=== PATIENT | female | born 1990 | race Hispanic/Latino ===

== ENCOUNTER 2019-03-09 09:46 | Emergency (ER) | payer BC, OTHER, SELFPAY ==
[2019-03-09] MEDS ORDERED: Acetaminophen 500 MG TAB ONE (11:04)
--- NOTE | 2019-03-09 11:06 | RAD ---
EXAM: Right tibia-fibula: 2 views INDICATIONS: Trauma COMPARISON: None. FINDINGS: No evidence of fracture. No osseous abnormality. IMPRESSION: No acute finding
--- NOTE | 2019-03-09 11:07 | RAD ---
EXAM: Chest PA and lateral: HISTORY: Trauma COMPARISON: none FINDINGS: Lung riley are clear. Vascular markings are normal. Heart and mediastinum appear unremarkable. Osseous structures are unremarkable. IMPRESSION: Unremarkable chest
[2019-03-09 11:35] LABS: BHCG - Serum Negative (NEGATIVE); Pregs Control Background? CLEAR/WHITE (CLR/WHITE); Pregs Control Bar Appear? YES (CONTROL BAR)
[2019-03-09 11:52] LABS: ALT (SGPT) 14 U/L (8-55); AST (SGOT) 21 U/L (5-34); Albumin 4.2 g/dL (3.5-5.0); Alkaline Phosphatase 66 U/L (40-110); Anion Gap 14 mmol/L (10-20); BUN (Urea Nitrogen) 8 mg/dL (7.0-18.7); Bilirubin, Total 0.5 mg/dL (0.2-1.2); Calc. Creatinine Clearance 0 mL/min (70-130); Calcium 9.2 mg/dL (7.8-10.44); Carbon Dioxide 19 mmol/L (22-29); Chloride 109 mmol/L (98-107); Estimated GFR-MDRD 79; Globulin 3.4 g/dL (2.4-3.5); Glucose 98 mg/dL (70-105); Potassium 3.9 mmol/L (3.5-5.1); Protein, Total 7.6 g/dL (6.0-8.3); Sodium 138 mmol/L (136-145)
[2019-03-09 12:41] LABS: Band 15 % (5-11); Burr Cells SLIGHT = 2-5 cells (100X) (0-1/hpf); Eosinophils 1 % (0-10); Hemoglobin 10.6 g/dL (12.0-16.0); Hypochromia MODERATE=16-30 cells (100X) (0-5/hpf); Lymphocytes 15 % (21-51); MDiff Complete? YES; Mean Corpuscular HGB CONC 28.9 g/dL (32.0-36.0); Mean Corpuscular Hemoglobin 19.4 pg (27.0-31.0); Mean Corpuscular Volume 67.2 fL (78.0-98.0); Mean Platelet Volume 10.6 fL (7.4-10.4); Microcytosis MODERATE=15-30 cells (100X) (0-5/hpf); Monocytes 6 % (0-10); Neutrophil 63 % (42-75); Ovalocytes SLIGHT = 2-5 cells (100X) (0-1/hpf); Platelet Count 564 thou/uL (130-400); Platelet Morphology Comment Appears Increased; Polychromasia MODERATE = 3-4 cells (100X) (0-2/hpf); Red Blood Cell (RBC) Count 5.46 mill/uL (4.20-5.40); Reflex for Review?? YES; Schistocytes SLIGHT = 2-5 cells (100X) (0-1/hpf); White Blood Cell (WBC) Count 30.1 thou/uL (4.8-10.8)
[2019-03-09 12:57] LABS: Bacteria/HPF 2+ HPF (None Seen); Bilirubin Negative (Negative); Blood, Urine 1+ (Negative); Clarity Turbid (Clear); Glucose, Urine (Dipstick) Normal (Negative); Leukocyte 500 Leu/uL (Negative); Mucous/LPF 1+ LPF (<2+); Nitrite Negative (Negative); Protein, Urine (Dipstick) 30 mg/dL (Neg-Trace); RBC/HPF 0-3 HPF (0-3); Urobilinogen Normal mg/dL (Less than 2)
== END 2019-03-09 13:30 | disposition home or self-care (01) ==
LOC: ERS 09:46
DX: S20.311A Abrasion of right front wall of thorax, initial encounter (principal); S50.812A Abrasion of left forearm, initial encounter; S50.811A Abrasion of right forearm, initial encounter; N39.0 Urinary tract infection, site not specified; M32.9 Systemic lupus erythematosus, unspecified; I25.2 Old myocardial infarction; Z79.01 Long term (current) use of anticoagulants; Z79.899 Other long term (current) drug therapy; V59.9XXA Occupant (driver) (passenger) of pick-up truck or van injured in unspecified traffic accident, initial encounter
CPT/HCPCS: 36415; 71046; 80053; 81003; 81015; 84484; 84703; 85025; 85060

== ENCOUNTER 2019-05-26 08:51 | Emergency (ER) | payer BC ==
--- NOTE | 2019-05-30 09:48 | EKG ---
Test Reason : DIZZINESS Blood Pressure : / mmHG Vent. Rate : 071 BPM Atrial Rate : 071 BPM P-R Int : 128 ms QRS Dur : 088 ms QT Int : 388 ms P-R-T Axes : 006 -02 008 degrees QTc Int : 421 ms Normal sinus rhythm Normal ECG Confirmed by KOBY CASON DO ([id number]), editorial writer DREW BARLOW ([id number]) on 05/30/2019 9:48:32 AM Referred By: SUNDAY HOLDEN Confirmed By:KOBY CASON DO
== END 2019-05-26 14:30 | disposition home or self-care (01) ==
LOC: ERS 08:51
DX: R42 Dizziness and giddiness (principal); T37.8X5A Adverse effect of other specified systemic anti-infectives and antiparasitics, initial encounter; I25.10 Atherosclerotic heart disease of native coronary artery without angina pectoris; I25.2 Old myocardial infarction; F41.9 Anxiety disorder, unspecified; F32.9 Major depressive disorder, single episode, unspecified; Z86.711 Personal history of pulmonary embolism; Z86.718 Personal history of other venous thrombosis and embolism; Z79.01 Long term (current) use of anticoagulants; Z79.899 Other long term (current) drug therapy
CPT/HCPCS: 93005; 96360

== ENCOUNTER 2019-08-24 12:57 | Emergency (ER) | payer BC ==
[2019-08-24 14:44] LABS: PTT 66.4 sec (22.9-36.1); Prothrombin Time 59.5 sec (12.0-14.7)
[2019-08-24] MEDS ORDERED: Phytonadione 10 MG/ML AMP PO SCH (15:45)
== END 2019-08-24 16:27 | disposition home or self-care (01) ==
LOC: ERS 12:57
DX: R79.1 Abnormal coagulation profile (principal); I25.10 Atherosclerotic heart disease of native coronary artery without angina pectoris; I25.2 Old myocardial infarction; F41.9 Anxiety disorder, unspecified; F32.9 Major depressive disorder, single episode, unspecified; Z86.718 Personal history of other venous thrombosis and embolism; Z86.711 Personal history of pulmonary embolism; Z79.82 Long term (current) use of aspirin; Z79.899 Other long term (current) drug therapy
CPT/HCPCS: 36415; 85610; 85730; 99283; J3430

== ENCOUNTER 2019-09-03 14:58 | Emergency (ER) | payer BC, MEDICAID, OTHER ==
[2019-09-04 11:46] LABS: SARS-CoV-2 MS2 Positive; SARS-CoV-2 N Gene Negative; SARS-CoV-2 S Gene Negative; SARS-CoV-2 by NAA Not Detected (NotDetected); SARS-CoV-2 orf1ab Negative
== END 2019-09-03 15:10 | disposition home or self-care (01) ==
LOC: ERS 14:58
DX: R05 Cough (principal); R09.81 Nasal congestion; Z20.828 Contact with and (suspected) exposure to other viral communicable diseases; I25.2 Old myocardial infarction; F41.9 Anxiety disorder, unspecified; Z79.899 Other long term (current) drug therapy
CPT/HCPCS: 87635; 99283; U0003

== ENCOUNTER 2020-01-06 16:44 | Emergency (ER) | payer OTHER, MEDICAID ==
[2020-01-06 17:44] LABS: #Basophils 0.1 thou/uL (0.0-0.2); #Eosinphils 0.7 thou/uL (0.0-0.7); #Lymphocytes 3.7 thou/uL (1.20-3.40); #Monocytes 1.3 thou/uL (0.11-0.59); #Neutrophils 6.7 thou/uL (1.40-6.50); %Basophils 1.1 % (0.0-1.0); %Eosinophils 5.3 % (0.0-10.0); %Lymphocytes 29.8 % (21.0-51.0); %Monocytes 10.1 % (0.0-10.0); %Neutrophils 53.7 % (42.0-75.0); Hemoglobin 11.1 g/dL (12.0-16.0); Mean Corpuscular HGB CONC 30.1 g/dL (32.0-36.0); Mean Corpuscular Hemoglobin 21.8 pg (27.0-31.0); Mean Corpuscular Volume 72.5 fL (78.0-98.0); Mean Platelet Volume 9.9 fL (7.4-10.4); Platelet Count 450 thou/uL (130-400); RBC Distribution Width 18.6 % (11.5-14.5); Red Blood Cell (RBC) Count 5.07 mill/uL (4.20-5.40); White Blood Cell (WBC) Count 12.4 thou/uL (4.8-10.8)
[2020-01-06 17:54] LABS: PTT 45.1 sec (22.9-36.1); Prothrombin Time 31.9 sec (12.0-14.7)
[2020-01-06 18:05] LABS: ALT (SGPT) 10 U/L (8-55); AST (SGOT) 17 U/L (5-34); Albumin 3.7 g/dL (3.5-5.0); Alkaline Phosphatase 61 U/L (40-110); Anion Gap 12 mmol/L (10-20); BUN (Urea Nitrogen) 9 mg/dL (7.0-18.7); Bilirubin, Total 0.2 mg/dL (0.2-1.2); Calc. Creatinine Clearance 0 mL/min (70-130); Calcium 8.7 mg/dL (7.8-10.44); Carbon Dioxide 23 mmol/L (22-29); Chloride 106 mmol/L (98-107); Estimated GFR-MDRD 83; Globulin 3.2 g/dL (2.4-3.5); Glucose 123 mg/dL (70-105); Protein, Total 6.9 g/dL (6.0-8.3); Sodium 137 mmol/L (136-145)
[2020-01-06 18:07] LABS: Anisocytosis SLIGHT = 6-15 cells (100X) (0-5/hpf); Helmet Cells SLIGHT = 2-5 cells (100X) (0-1/hpf); Hypochromia SLIGHT = 6-15 cells (100X) (0-5/hpf); MDiff Complete? YES; Microcytosis SLIGHT = 6-15 cells (100X) (0-5/hpf); Ovalocytes SLIGHT = 2-5 cells (100X) (0-1/hpf); Platelet Morphology Comment Appears Increased; Schistocytes SLIGHT = 2-5 cells (100X) (0-1/hpf); Target Cells SLIGHT = 2-5 cells (100X) (0-1/hpf); Tear Drops SLIGHT = 2-5 cells (100X) (0-1/hpf)
--- NOTE | 2020-01-06 18:31 | ULT ---
Bilateral lower extremity venous Doppler ultrasound: 01/06/2020 COMPARISON: None available HISTORY: Pain, swelling, edema, assess for DVT TECHNIQUE: Multiplanar grayscale sonographic imaging of the venous structures of bilateral lower extr emities obtained with color flow and spectral analysis FINDINGS: Bilateral common femoral veins, greater saphenous veins, profunda femoral veins, femoral ve ins, popliteal veins, and posterior tibial veins are patent. There is normal blood flow, augmentation, and compression within the deep venous system bilaterally. No evidence for DVT on eithe r side IMPRESSION: No evidence for deep venous thrombosis of either lower extremity.
== END 2020-01-06 20:32 | disposition home or self-care (01) ==
LOC: ERS 16:44
DX: R60.9 Edema, unspecified (principal); I25.2 Old myocardial infarction; Z86.718 Personal history of other venous thrombosis and embolism; F41.9 Anxiety disorder, unspecified; F32.9 Major depressive disorder, single episode, unspecified
CPT/HCPCS: 36415; 80053; 83880; 85025; 85610; 85730; 93005; 93970

== ENCOUNTER 2020-01-12 01:09 | Emergency (ER) | payer OTHER, MEDICAID ==
[2020-01-12] MEDS ORDERED: diphenhydrAMINE 50 MG/ML VIAL ONE (02:28)
[2020-01-12] MEDS ORDERED: Morphine 4 MG/ML VIAL ONE (02:28)
[2020-01-12] MEDS ORDERED: Famotidine/PF 20 mg/2ml Vial ONE (02:28)
[2020-01-12] MEDS ORDERED: Ondansetron PF 4 MG/2 ML Vial ONE (02:28)
[2020-01-12] MEDS ORDERED: methylPREDNISolone Sod Succ/PF 125 MG/2 ML VIAL ONE (02:28)
[2020-01-12 02:43] LABS: #Basophils 0.2 thou/uL (0.0-0.2); #Eosinphils 0.6 thou/uL (0.0-0.7); #Lymphocytes 3.7 thou/uL (1.20-3.40); #Monocytes 1.4 thou/uL (0.11-0.59); #Neutrophils 12.4 thou/uL (1.40-6.50); %Eosinophils 3.2 % (0.0-10.0); %Lymphocytes 20.1 % (21.0-51.0); %Monocytes 7.5 % (0.0-10.0); %Neutrophils 68.1 % (42.0-75.0); Hemoglobin 11.6 g/dL (12.0-16.0); Mean Corpuscular HGB CONC 31.1 g/dL (32.0-36.0); Mean Corpuscular Hemoglobin 22.1 pg (27.0-31.0); Mean Corpuscular Volume 71.1 fL (78.0-98.0); Mean Platelet Volume 10.5 fL (7.4-10.4); Platelet Count 476 thou/uL (130-400); RBC Distribution Width 18.7 % (11.5-14.5); Red Blood Cell (RBC) Count 5.23 mill/uL (4.20-5.40); White Blood Cell (WBC) Count 18.3 thou/uL (4.8-10.8)
[2020-01-12 02:51] LABS: PTT 54.2 sec (22.9-36.1); Prothrombin Time 43.3 sec (12.0-14.7)
[2020-01-12 02:52] LABS: INR-International Normal Ratio 4.4
[2020-01-12 03:13] LABS: ALT (SGPT) 7 U/L (8-55); AST (SGOT) 13 U/L (5-34); Alkaline Phosphatase 58 U/L (40-110); Anion Gap 14 mmol/L (10-20); BUN (Urea Nitrogen) 11 mg/dL (7.0-18.7); Bilirubin, Total 0.3 mg/dL (0.2-1.2); Calc. Creatinine Clearance 0 mL/min (70-130); Calcium 8.9 mg/dL (7.8-10.44); Carbon Dioxide 23 mmol/L (22-29); Chloride 105 mmol/L (98-107); Estimated GFR-MDRD 79; Globulin 3.3 g/dL (2.4-3.5); Glucose 118 mg/dL (70-105); Potassium 3.8 mmol/L (3.5-5.1); Protein, Total 7.3 g/dL (6.0-8.3); Sodium 138 mmol/L (136-145)
[2020-01-12] MEDS ORDERED: Promethazine HCl 25 MG/ML VIAL ONE (04:11)
[2020-01-12 05:28] LABS: Bacteria/HPF None Seen HPF (None Seen); Bilirubin Negative (Negative); Blood, Urine Negative (Negative); Clarity Clear (Clear); Glucose, Urine (Dipstick) Normal (Negative); Ketone, Urine Negative (Negative); Leukocyte 250 Leu/uL (Negative); Nitrite Negative (Negative); Protein, Urine (Dipstick) Negative (Neg-Trace); RBC/HPF 0-3 HPF (0-3); Specific Gravity, Urine 1.044 (1.002-1.036); Squamous Epithelial 0-3 HPF (0-3); Urobilinogen Normal mg/dL (Less than 2); pH, Urine 7.5 (5.0-9.0)
[2020-01-12 05:30] LABS: Pregnancy Test - Urine (BHCG) Negative (Negative); Pregu Control Background? CLEAR/WHITE (CLR/WHITE); Pregu Control Bar Appear? YES (CONTROL BAR); Specific Gravity 1.044 (1.002-1.036)
[2020-01-12] MEDS ORDERED: Sucralfate 1 GM/10 ML UDCUP ONE (05:45)
--- NOTE | 2020-01-12 08:07 | CT ---
PRELIMINARY REPORT/[facility]/EMERGENCY AFTER HOURS PROCEDURE EXAM: CTA Chest with Intravenous Contrast CT Abdomen and Pelvis with Intravenous Contrast. CLINICAL HISTORY: 29-year-old female patient presents to the ER with complaints of nausea that began this morning and p rogressed to this evening around 8 PM. Patient says she has had multiple episodes of vomiting, diarrhea and has developed left upper quadrant abdominal pain that radiates around her left side. She describes this pain as a stabbing pain, which is constant. TECHNIQUE: Axial CTA images of the chest, CT images of the abdomen and pelvis with intravenous contrast. Three-d imensional MIP/volume rendered reformations were performed. CONTRAST: With; ISOVUE 370,100mL COMPARISON: None provided. FINDINGS: CTA CHEST : Pulmonary arteries: The pulmonary arteries are adequately opacified. No pulmonary embolism. Lungs: Unremarkable other than some minimal atelectasis at the right base. No mass. No consolidation. Pleural spaces: No pleural effusion. No pneumothorax. Heart and mediastinum: No cardiomegaly. No significant pericardial effusion. Aorta: No acute finding. No aortic aneurysm. CT ABDOMEN: Liver: Unremarkable. No mass. Gallbladder and bile ducts: No calcified stone. No ductal dilation. Pancreas: Unremarkable. No ductal dilation. Spleen: Absent. Adrenals: No mass. Kidneys and ureters: The kidneys enhance symmetrically. No hydronephrosis. No solid mass. Stomach and bowel: No obstruction. No bowel wall thickening. No CT evidence of acute diverticulitis. Appendix: No CT evidence for appendicitis. CT PELVIS: Bladder: Unremarkable. Reproductive: 3 cm right ovarian cyst Peritoneum: No free fluid. No free air. Lymph nodes: No lymphadenopathy. Bones and soft tissues: No acute osseous abnormality. The soft tissues are unremarkable. IMPRESSION: No CT evidence of acute cardiopulmonary, abdominal or pelvic process. ELECTRONICALLY SIGNED BY: Chris Mccloud MD Jan 12, 2020 4:37:27 AM FEED BLENDER This report is intended for review by the ordering physician only, in accordance of law. If you recei ve this report in error, please call [facility] at [phone]. FINAL REPORT Exam: CT angiogram of the chest HISTORY: Chest pain COMPARISON: 05/01/2019 TECHNIQUE: CT angiogram of the chest is performed in the axial plane. Three-dimensional reformatted i mages are submitted for interpretation FINDINGS: Mediastinum: No mass, or hematoma. Enlarged right paratracheal lymph node measuring 1.7 x 1.7 cm, unc hanged. HEART: Normal size. No significant pericardial fluid. Aorta: No aneurysm or dissection Upper solid abdominal viscera: No abnormality enhancement. Trachea and central bronchi: Patent Pleural spaces: No effusion Lung parenchyma: No masses or consolidation. Pneumothorax: None Osseous structures: No lytic or blastic lesions Pulmonary arteries: Adequate contrast opacification pulmonary arterial system to the level of segment al arteries. No filling defect to suggest pulmonary embolism IMPRESSION: 1. This report is in agreement with initial report by [facility]. 2. No evidence of pulmonary artery embolism to the level of segmental arteries. 3. Stable upper normal right paratracheal lymph node. Transcribed Date/Time: 01/12/2020 8:13 AM
--- NOTE | 2020-01-12 08:14 | RAD ---
PORTABLE CHEST 1 VIEW: DATE: 01/12/2020. TIME: 2:27 AM. HISTORY: Left lower quadrant pain and vomiting. COMPARISON: Comparison is made to the exam of 02/06/2020. FINDINGS: The heart size is borderline. The lungs are expanded without focal areas of consolidation, pneumotho races, or pleural effusions. There is no evidence of juan antonio pulmonary edema. IMPRESSION: No acute process. POS: OFF
--- NOTE | 2020-01-12 08:30 | CT ---
PRELIMINARY REPORT/[facility]/EMERGENCY AFTER HOURS PROCEDURE: EXAM: CTA Chest with Intravenous Contrast CT Abdomen and Pelvis with Intravenous Contrast. CLINICAL HISTORY: 29-year-old female patient presents to the ER with complaints of nausea that began this morning and p rogressed to this evening around 8 PM. Patient says she has had multiple episodes of vomiting, diarrh ea and has developed left upper quadrant abdominal pain that radiates around her left side. She descr ibes this pain as a stabbing pain, which is constant. TECHNIQUE: Axial CTA images of the chest, CT images of the abdomen and pelvis with intravenous contrast. Three-d imensional MIP/volume rendered reformations were performed. CONTRAST: With; ISOVUE 370,100mL COMPARISON: None provided. FINDINGS: CTA CHEST : Pulmonary arteries: The pulmonary arteries are adequately opacified. No pulmonary embolism. Lungs: Unremarkable other than some minimal atelectasis at the right base. No mass. No consolidation. Pleural spaces: No pleural effusion. No pneumothorax. Heart and mediastinum: No cardiomegaly. No significant pericardial effusion. Aorta: No acute finding. No aortic aneurysm. CT ABDOMEN: Liver: Unremarkable. No mass. Gallbladder and bile ducts: No calcified stone. No ductal dilation. Pancreas: Unremarkable. No ductal dilation. Spleen: Absent. Adrenals: No mass. Kidneys and ureters: The kidneys enhance symmetrically. No hydronephrosis. No solid mass. Stomach and bowel: No obstruction. No bowel wall thickening. No CT evidence of acute diverticulitis. Appendix: No CT evidence for appendicitis. CT PELVIS: Bladder: Unremarkable. Reproductive: 3 cm right ovarian cyst Peritoneum: No free fluid. No free air. Lymph nodes: No lymphadenopathy. Bones and soft tissues: No acute osseous abnormality. The soft tissues are unremarkable. IMPRESSION: No CT evidence of acute cardiopulmonary, abdominal or pelvic process. ELECTRONICALLY SIGNED BY: Chris Mccloud MD Jan 12, 2020 4:37:27 AM PUT IN BEAT ADJUSTER This report is intended for review by the ordering physician only, in accordance of law. If you recei ve this report in error, please call [facility] at [phone]. FINAL REPORT CT ABDOMEN AND PELVIS: I agree with the preliminary report given by Dr. Chris Mccloud [facility]. POS: OFF
[2020-01-12] MEDS ORDERED: Iopamidol-370 76% 500 ML 1 ML ONE (10:15)
== END 2020-01-12 06:00 | disposition home or self-care (01) ==
LOC: ERS 01:09
DX: R10.12 Left upper quadrant pain (principal); I25.2 Old myocardial infarction
CPT/HCPCS: 36415; 71045; 71275; 74177; 80053; 81003; 81015; 81025; 84484; 85025; 85610; 85730; 93005; 96365; 96375; J1200; J2270; J2405; J2550; J2930; Q9967; S0028

== ENCOUNTER 2020-01-22 09:48 | Day surgery (SDC) | payer OTHER, MEDICAID ==
[2020-01-22] MEDS ORDERED: Ferumoxytol (ERSD) 510 MG in Sodium Chloride 0.9% 150 ML IVPB SCH (10:00)
[2020-01-22] MEDS ORDERED: diphenhydrAMINE 50 MG/ML VIAL ONE (10:26)
[2020-01-22] MEDS ORDERED: diphenhydrAMINE 50 MG/ML VIAL IVP PRN (10:45)
[2020-01-22 14:03] VITALS: BP 135/68; TEMP 98.2
== END 2020-01-22 14:05 | disposition home or self-care (01) ==
LOC: ONC/OP 09:48
PROVIDERS: ATTEND Internal Medicine Hematology & Oncology
DX: D50.0 Iron deficiency anemia secondary to blood loss (chronic) (principal); D69.3 Immune thrombocytopenic purpura; D68.62 Lupus anticoagulant syndrome; Z88.0 Allergy status to penicillin; Z88.8 Allergy status to other drugs, medicaments and biological substances; Z91.013 Allergy to seafood; Z91.048 Other nonmedicinal substance allergy status
CPT/HCPCS: 96365; J1200; J3490; Q0139

== ENCOUNTER 2020-01-25 07:36 | Outpatient (CLI) | payer OTHER, MEDICAID ==
--- NOTE | 2020-01-25 11:32 | NM ---
NM Hida Scan W Drug History: Abdominal pain Comparison: CT examination January 12, 2020 Findings: Imaging of the abdomen was performed after the intravenous administration 4.6 mCi technetiu m 99m mebrofenin. To evaluate for gallbladder ejection fraction, 2 mcg of CCK was administered intravenously over 30 minutes. Adequate hepatic uptake of radiotracer. Gallbladder is clinically seen as well as the small bowel. The calculated ejection fraction is 90%. Impression: 1. Patent cystic and common bile ducts. 2. Calculated ejection fraction of 90% can be seen with biliary hyperkinesia.
== END 2020-01-25 07:37 | disposition home or self-care (01) ==
LOC: NM 07:36
PROVIDERS: ATTEND Internal Medicine Gastroenterology
DX: K21.9 Gastro-esophageal reflux disease without esophagitis (principal); R10.11 Right upper quadrant pain; K92.1 Melena; R11.0 Nausea; R19.7 Diarrhea, unspecified; Z79.01 Long term (current) use of anticoagulants
CPT/HCPCS: 78227; A9537

== ENCOUNTER 2020-01-29 10:10 | Day surgery (SDC) | payer OTHER, MEDICAID ==
[~2020-01-29 10:10] MED LIST: Ferumoxytol (ERSD) 510 MG in Sodium Chloride 0.9% 150 ML IVPB SCH
[2020-01-29] MEDS ORDERED: Sodium Chloride 0.9% 20 ML ONE (10:26)
[2020-01-29] MEDS ORDERED: diphenhydrAMINE 50 MG/ML VIAL ONE (10:39)
[2020-01-29] MEDS ORDERED: diphenhydrAMINE 50 MG/ML VIAL IVP SCH (11:00)
[2020-01-29] MEDS ORDERED: Acetaminophen 500 MG TAB PO SCH (11:00)
[2020-01-29 11:20] VITALS: BP 117/76; TEMP 97.9
== END 2020-01-29 12:09 | disposition home or self-care (01) ==
LOC: ONC/OP 10:10
PROVIDERS: ATTEND Internal Medicine Hematology & Oncology
DX: D50.0 Iron deficiency anemia secondary to blood loss (chronic) (principal); D69.3 Immune thrombocytopenic purpura; D68.62 Lupus anticoagulant syndrome; Z88.0 Allergy status to penicillin; Z88.8 Allergy status to other drugs, medicaments and biological substances; Z91.040 Latex allergy status; Z91.013 Allergy to seafood
CPT/HCPCS: 96365; 96375; J1200; J3490; Q0139

== ENCOUNTER 2020-02-08 09:06 | Day surgery (SDC) | payer OTHER, MEDICAID ==
[2020-02-08] MEDS ORDERED: Sodium Chloride 0.9% 20 ML ONE (09:11)
[2020-02-08] MEDS ORDERED: Acetaminophen 500 MG TAB PO SCH (10:00)
[2020-02-08] MEDS ORDERED: diphenhydrAMINE 50 MG/ML VIAL IVP SCH (10:00)
[2020-02-08 11:03] VITALS: BP 132/77
== END 2020-02-08 12:03 | disposition home or self-care (01) ==
LOC: ONC/OP 09:06
PROVIDERS: ATTEND Internal Medicine Hematology & Oncology
DX: D50.0 Iron deficiency anemia secondary to blood loss (chronic) (principal); D69.3 Immune thrombocytopenic purpura; D68.62 Lupus anticoagulant syndrome; Z88.0 Allergy status to penicillin; Z88.8 Allergy status to other drugs, medicaments and biological substances; Z91.013 Allergy to seafood; Z91.040 Latex allergy status
CPT/HCPCS: 96365; 96375; J1200; J3490; Q0139

== ENCOUNTER 2020-04-23 18:07 | Emergency (ER) | payer OTHER, MEDICAID ==
[2020-04-23 18:37] LABS: #Eosinphils 1.1 thou/uL (0.0-0.7); #Lymphocytes 4.9 thou/uL (1.20-3.40); #Monocytes 1.3 thou/uL (0.11-0.59); #Neutrophils 9.8 thou/uL (1.40-6.50); %Basophils 0.2 % (0.0-1.0); %Eosinophils 6.2 % (0.0-10.0); %Lymphocytes 28.6 % (21.0-51.0); %Monocytes 7.7 % (0.0-10.0); %Neutrophils 57.3 % (42.0-75.0); Hemoglobin 14.9 g/dL (12.0-16.0); Mean Corpuscular Hemoglobin 27.7 pg (27.0-31.0); Mean Corpuscular Volume 86.5 fL (78.0-98.0); Mean Platelet Volume 9.7 fL (7.4-10.4); Platelet Count 317 thou/uL (130-400); RBC Distribution Width 17.2 % (11.5-14.5); Red Blood Cell (RBC) Count 5.39 mill/uL (4.20-5.40); White Blood Cell (WBC) Count 17.1 thou/uL (4.8-10.8)
[2020-04-23 18:49] LABS: BHCG - Serum Negative (NEGATIVE); Pregs Control Background? CLEAR/WHITE (CLR/WHITE); Pregs Control Bar Appear? YES (CONTROL BAR)
[2020-04-23 18:52] LABS: Bacteria/HPF None Seen HPF (None Seen); Bilirubin Negative (Negative); Blood, Urine 1+ (Negative); Clarity Clear (Clear); Glucose, Urine (Dipstick) Normal (Negative); Ketone, Urine Negative (Negative); Leukocyte Negative Leu/uL (Negative); Nitrite Negative (Negative); Protein, Urine (Dipstick) Negative (Neg-Trace); RBC/HPF 0-3 HPF (0-3); Specific Gravity, Urine 1.014 (1.002-1.036); Squamous Epithelial None Seen HPF (0-3); Urobilinogen Normal mg/dL (Less than 2); WBC/HPF 0-3 HPF (0-3)
[2020-04-23 18:53] LABS: ALT (SGPT) 11 U/L (8-55); AST (SGOT) 13 U/L (5-34); Alkaline Phosphatase 73 U/L (40-110); Anion Gap 16 mmol/L (10-20); BUN (Urea Nitrogen) 11 mg/dL (7.0-18.7); Bilirubin, Total 0.2 mg/dL (0.2-1.2); Calc. Creatinine Clearance 0 mL/min (70-130); Calcium 9.1 mg/dL (7.8-10.44); Carbon Dioxide 19 mmol/L (22-29); Chloride 105 mmol/L (98-107); Globulin 3.4 g/dL (2.4-3.5); Glucose 106 mg/dL (70-105); Potassium 3.8 mmol/L (3.5-5.1); Protein, Total 7.4 g/dL (6.0-8.3); Sodium 136 mmol/L (136-145)
[2020-04-23] MEDS ORDERED: Ondansetron ODT 4 MG TAB ONE (19:09)
[2020-04-23] MEDS ORDERED: Dicyclomine 20 MG TAB ONE (19:09)
== END 2020-04-23 20:30 | disposition home or self-care (01) ==
LOC: ERS 18:07
DX: R10.11 Right upper quadrant pain (principal); G43.909 Migraine, unspecified, not intractable, without status migrainosus; I25.10 Atherosclerotic heart disease of native coronary artery without angina pectoris; I25.2 Old myocardial infarction; Z86.711 Personal history of pulmonary embolism; Z86.718 Personal history of other venous thrombosis and embolism; Z79.899 Other long term (current) drug therapy
CPT/HCPCS: 36415; 76705; 80053; 81003; 81015; 83690; 84703; 85025; Q0162

== ENCOUNTER 2020-06-01 09:17 | Inpatient (IN) | payer OTHER, MEDICAID ==
[2020-06-01] MEDS ORDERED: Morphine 4 MG/ML VIAL ONE ×2 (10:31→11:30)
[2020-06-01] MEDS ORDERED: Ondansetron PF 4 MG/2 ML Vial ONE (10:31)
[2020-06-01 10:36] LABS: #Basophils 0.1 thou/uL (0.0-0.2); #Eosinphils 0.7 thou/uL (0.0-0.7); #Lymphocytes 4.6 thou/uL (1.20-3.40); #Monocytes 1.4 thou/uL (0.11-0.59); #Neutrophils 8.4 thou/uL (1.40-6.50); %Eosinophils 4.6 % (0.0-10.0); %Monocytes 9.2 % (0.0-10.0); %Neutrophils 55.1 % (42.0-75.0); Hemoglobin 15.2 g/dL (12.0-16.0); Mean Corpuscular HGB CONC 32.7 g/dL (32.0-36.0); Mean Corpuscular Hemoglobin 29.1 pg (27.0-31.0); Mean Corpuscular Volume 89.2 fL (78.0-98.0); Mean Platelet Volume 8.9 fL (7.4-10.4); Platelet Count 325 thou/uL (130-400); Red Blood Cell (RBC) Count 5.21 mill/uL (4.20-5.40); White Blood Cell (WBC) Count 15.1 thou/uL (4.8-10.8)
[2020-06-01 10:46] LABS: INR-International Normal Ratio 1.7; PTT 39.2 sec (22.9-36.1); Prothrombin Time 20.2 sec (12.0-14.7)
[2020-06-01 10:52] LABS: Pregnancy Test - Urine (BHCG) Negative (Negative); Pregu Control Background? CLEAR/WHITE (CLR/WHITE); Pregu Control Bar Appear? YES (CONTROL BAR); Specific Gravity 1.019 (1.002-1.036)
[2020-06-01 10:57] LABS: ALT (SGPT) 20 U/L (8-55); AST (SGOT) 15 U/L (5-34); Albumin 4.1 g/dL (3.5-5.0); Alkaline Phosphatase 67 U/L (40-110); Anion Gap 12 mmol/L (10-20); BUN (Urea Nitrogen) 8 mg/dL (7.0-18.7); Bilirubin, Total 0.2 mg/dL (0.2-1.2); Calc. Creatinine Clearance 0 mL/min (70-130); Calcium 9.3 mg/dL (7.8-10.44); Carbon Dioxide 27 mmol/L (22-29); Chloride 102 mmol/L (98-107); Globulin 3.4 g/dL (2.4-3.5); Glucose 87 mg/dL (70-105); Protein, Total 7.5 g/dL (6.0-8.3); Sodium 137 mmol/L (136-145)
[2020-06-01] MEDS ORDERED: methylPREDNISolone Sod Succ/PF 125 MG/2 ML VIAL ONE (11:20)
[2020-06-01] MEDS ORDERED: diphenhydrAMINE 50 MG/ML VIAL ONE ×2 (11:20→12:08)
[2020-06-01] MEDS ORDERED: Famotidine/PF 20 mg/2ml Vial ONE (11:21)
[2020-06-01] MEDS ORDERED: Iopamidol-370 76% 500 ML 1 ML ONE (12:21)
[2020-06-01] MEDS ORDERED: Aspirin 325 MG TAB ONE (13:09)
[2020-06-01] MEDS ORDERED: Nitroglycerin 2% Ointment 1 INCH/1 GM Packet ONE (13:09)
[2020-06-01 13:13] LABS: Troponin I 0.014 ng/mL (< 0.028)
[2020-06-01] MEDS ORDERED: Acetaminophen 325 MG TAB PO PRN (13:15)
[2020-06-01] MEDS ORDERED: Ondansetron ODT 4 MG TAB PO PRN (13:15)
[2020-06-01] MEDS ORDERED: Calcium Carbonate 500 MG ChewTAB PO PRN (13:15)
[2020-06-01] MEDS ORDERED: Warfarin Sodium 10 MG TAB PO SCH (17:00)
[2020-06-01 19:44] LABS: Troponin I Less than 0.010 ng/mL (< 0.028)
[2020-06-01] MEDS ORDERED: Enoxaparin Sodium 120 MG/0.8 ML SYRINGE SC SCH (21:00)
[2020-06-01] MEDS ORDERED: Carvedilol 6.25 MG TAB PO SCH (21:00)
[2020-06-01] MEDS: Gabapentin 300 MG CAP PO SCH (22:35)
[2020-06-02] MEDS: Morphine 4 MG/ML VIAL SLOW IVP PRN ×4 (00:58→20:00)
[2020-06-02 02:31] LABS: SARS-CoV-2 PCR by NAA Not Detected (NotDetected)
[2020-06-02] MEDS ORDERED: Ketorolac Tromethamine 30 MG/ML VIAL IVP SCH (04:45)
[2020-06-02 06:38] LABS: INR-International Normal Ratio 1.9
[2020-06-02] MEDS ORDERED: Enoxaparin Sodium 120 MG/0.8 ML SYRINGE SC SCH (06:45)
[2020-06-02] MEDS: Enoxaparin Sodium 100 MG/ML SYRINGE SC SCH ×2 (09:28→20:03)
[2020-06-02] MEDS: Gabapentin 300 MG CAP PO SCH ×3 (09:28→20:01)
[2020-06-02] MEDS: Enoxaparin Sodium 30 MG/0.3 ML SYRINGE SC SCH ×2 (09:28→20:03)
[2020-06-02] MEDS: Lisinopril 2.5 MG TAB PO SCH (09:29)
[2020-06-02] MEDS: FLUoxetine HCl 20 MG CAP PO SCH (09:29)
[2020-06-02] MEDS ORDERED: Fentanyl 100 MCG/2 ML VIAL SLOW IVP PRN ×2 (13:58→23:08)
[2020-06-02] MEDS ORDERED: Warfarin Sodium 10 MG TAB PO SCH (17:00)
[2020-06-03] MEDS: Morphine 4 MG/ML VIAL SLOW IVP PRN ×2 (03:52→08:34)
[2020-06-03 05:12] LABS: INR-International Normal Ratio 3.3; Prothrombin Time 34.1 sec (12.0-14.7)
[2020-06-03] MEDS: Gabapentin 300 MG CAP PO SCH ×3 (08:34→20:14)
[2020-06-03] MEDS: FLUoxetine HCl 20 MG CAP PO SCH (08:34)
[2020-06-03] MEDS: Polyethylene Glycol 3350 17 GM Packet PO SCH (10:30)
[2020-06-03] MEDS: Fentanyl 100 MCG/2 ML VIAL SLOW IVP PRN ×3 (10:30→20:55)
[2020-06-03] MEDS: Lisinopril 2.5 MG TAB PO SCH (10:33)
[2020-06-03] MEDS: hydrOXYzine 25 MG TAB PO PRN (13:51)
[2020-06-03] MEDS: Enoxaparin Sodium 100 MG/ML SYRINGE SC SCH (15:43)
[2020-06-03] MEDS: Enoxaparin Sodium 30 MG/0.3 ML SYRINGE SC SCH (15:44)
[2020-06-03] MEDS ORDERED: Communication Order-Pharmacy FS SCH (19:00)
[2020-06-04] MEDS: Fentanyl 100 MCG/2 ML VIAL SLOW IVP PRN ×5 (01:22→20:04)
[2020-06-04 05:33] LABS: INR-International Normal Ratio 2.6; Prothrombin Time 28.6 sec (12.0-14.7)
[2020-06-04] MEDS: Enoxaparin Sodium 30 MG/0.3 ML SYRINGE SC SCH ×2 (08:36→20:06)
[2020-06-04] MEDS: Enoxaparin Sodium 100 MG/ML SYRINGE SC SCH ×2 (08:37→20:06)
[2020-06-04] MEDS: FLUoxetine HCl 20 MG CAP PO SCH (08:38)
[2020-06-04] MEDS: Polyethylene Glycol 3350 17 GM Packet PO SCH (08:38)
[2020-06-04] MEDS: Gabapentin 300 MG CAP PO SCH ×3 (08:39→20:51)
[2020-06-04] MEDS: Carvedilol 6.25 MG TAB PO SCH ×2 (08:39→16:22)
[2020-06-04] MEDS: Lisinopril 2.5 MG TAB PO SCH (08:39)
[2020-06-04] MEDS: Ondansetron ODT 4 MG TAB PO PRN (18:13)
[2020-06-04] MEDS ORDERED: Melatonin 3 MG TAB PO PRN (22:53)
[2020-06-05] MEDS: Fentanyl 100 MCG/2 ML VIAL SLOW IVP PRN ×5 (00:11→21:20)
[2020-06-05] MEDS: hydrOXYzine 25 MG TAB PO PRN (00:13)
[2020-06-05 04:34] LABS: INR-International Normal Ratio 1.8; Prothrombin Time 21.7 sec (12.0-14.7)
[2020-06-05] MEDS: Enoxaparin Sodium 100 MG/ML SYRINGE SC SCH ×2 (08:00→21:20)
[2020-06-05] MEDS: Gabapentin 300 MG CAP PO SCH ×3 (08:00→21:19)
[2020-06-05] MEDS: Enoxaparin Sodium 30 MG/0.3 ML SYRINGE SC SCH ×2 (08:00→21:20)
[2020-06-05] MEDS: Carvedilol 6.25 MG TAB PO SCH ×2 (08:00→15:56)
[2020-06-05] MEDS: Acetaminophen 500 MG TAB PO SCH ×3 (08:00→23:08)
[2020-06-05] MEDS: FLUoxetine HCl 20 MG CAP PO SCH (08:02)
[2020-06-05] MEDS: Polyethylene Glycol 3350 17 GM Packet PO SCH (08:05)
[2020-06-05] MEDS ORDERED: diphenhydrAMINE 25 MG CAP PO SCH (11:30)
[2020-06-05] MEDS ORDERED: Famotidine 20 MG TAB PO SCH (11:30)
[2020-06-05] MEDS: Sodium Chloride 0.45% 1,000 ML IV SCH (12:07)
[2020-06-05] MEDS: Ondansetron ODT 4 MG TAB PO PRN (15:55)
[2020-06-05] MEDS: predniSONE 20 MG TAB PO SCH ×2 (17:34→23:08)
[2020-06-05] MEDS: diphenhydrAMINE 25 MG CAP PO SCH (21:19)
[2020-06-05] MEDS: Famotidine 20 MG TAB PO SCH (21:19)
[2020-06-06] MEDS: Fentanyl 100 MCG/2 ML VIAL SLOW IVP PRN ×5 (01:42→21:12)
[2020-06-06] MEDS: Ondansetron ODT 4 MG TAB PO PRN (01:42)
[2020-06-06] MEDS: Sodium Chloride 0.45% 1,000 ML IV SCH ×2 (01:49→16:35)
[2020-06-06 05:01] LABS: INR-International Normal Ratio 1.5; Prothrombin Time 17.9 sec (12.0-14.7)
[2020-06-06 05:18] LABS: Anion Gap 14 mmol/L (10-20); BUN (Urea Nitrogen) 9 mg/dL (7.0-18.7); Calc. Creatinine Clearance 227 mL/min (70-130); Calcium 9.1 mg/dL (7.8-10.44); Carbon Dioxide 24 mmol/L (22-29); Chloride 103 mmol/L (98-107); Glucose 131 mg/dL (70-105); Potassium 4.8 mmol/L (3.5-5.1); Sodium 136 mmol/L (136-145)
[2020-06-06] MEDS: Famotidine 20 MG TAB PO SCH ×2 (05:58→21:11)
[2020-06-06] MEDS: Gabapentin 300 MG CAP PO SCH ×3 (05:59→21:11)
[2020-06-06] MEDS: Carvedilol 6.25 MG TAB PO SCH ×2 (05:59→18:19)
[2020-06-06] MEDS: diphenhydrAMINE 25 MG CAP PO SCH ×2 (06:00→21:11)
[2020-06-06] MEDS: FLUoxetine HCl 20 MG CAP PO SCH (06:00)
[2020-06-06] MEDS: predniSONE 20 MG TAB PO SCH ×2 (06:01→12:13)
[2020-06-06] MEDS: Acetaminophen 500 MG TAB PO SCH ×2 (08:21→14:32)
[2020-06-06] MEDS: Polyethylene Glycol 3350 17 GM Packet PO SCH (08:22)
[2020-06-06] MEDS ORDERED: methylPREDNISolone Sod Succ/PF 125 MG/2 ML VIAL IVP SCH (09:00)
[2020-06-06] MEDS ORDERED: Enoxaparin Sodium 120 MG/0.8 ML SYRINGE SC SCH (13:45)
[2020-06-06] MEDS ORDERED: Enoxaparin Sodium 40 MG/0.4 ML SYRINGE SC SCH (13:45)
[2020-06-06] MEDS ORDERED: predniSONE 20 MG TAB PO SCH ×2 (18:00→23:55)
[2020-06-07] MEDS: Acetaminophen 500 MG TAB PO SCH ×4 (00:21→23:55)
[2020-06-07] MEDS: Fentanyl 100 MCG/2 ML VIAL SLOW IVP PRN ×4 (01:20→21:48)
[2020-06-07] MEDS: Ondansetron ODT 4 MG TAB PO PRN ×2 (01:21→17:30)
[2020-06-07] MEDS: Sodium Chloride 0.45% 1,000 ML IV SCH (04:35)
[2020-06-07 05:23] LABS: INR-International Normal Ratio 1.2; Prothrombin Time 15.7 sec (12.0-14.7)
[2020-06-07] MEDS: Gabapentin 300 MG CAP PO SCH ×3 (05:32→20:55)
[2020-06-07] MEDS: Famotidine 20 MG TAB PO SCH ×2 (05:32→20:54)
[2020-06-07] MEDS: Carvedilol 6.25 MG TAB PO SCH ×2 (05:33→18:06)
[2020-06-07] MEDS: FLUoxetine HCl 20 MG CAP PO SCH (05:34)
[2020-06-07 05:46] LABS: Anion Gap 14 mmol/L (10-20); BUN (Urea Nitrogen) 8 mg/dL (7.0-18.7); Calc. Creatinine Clearance 236 mL/min (70-130); Calcium 9.7 mg/dL (7.8-10.44); Carbon Dioxide 22 mmol/L (22-29); Chloride 103 mmol/L (98-107); Glucose 131 mg/dL (70-105); Sodium 135 mmol/L (136-145)
[2020-06-07] MEDS ORDERED: predniSONE 20 MG TAB PO SCH (06:00)
[2020-06-07] MEDS: Polyethylene Glycol 3350 17 GM Packet PO SCH (08:11)
[2020-06-07] MEDS: diphenhydrAMINE 25 MG CAP PO SCH ×2 (08:11→20:55)
[2020-06-07] MEDS ORDERED: Lidocaine 1% (PF) 30 ML VIAL ONE (09:37)
[2020-06-07] MEDS ORDERED: Midazolam HCl 2 mg/2 ml Vial ONE (10:20)
[2020-06-07] MEDS ORDERED: diphenhydrAMINE 50 MG/ML VIAL ONE (10:20)
[2020-06-07] MEDS ORDERED: Fentanyl 100 MCG/2 ML VIAL ONE ×2 (10:23→12:43)
[2020-06-07] MEDS ORDERED: Iopamidol 370 76% 100 ML VIAL ONE (11:51)
[2020-06-07] MEDS ORDERED: Ketorolac Tromethamine 30 MG/ML VIAL IVP SCH (14:30)
[2020-06-07] MEDS ORDERED: Sodium Chloride 0.9% 1,000 ML IV SCH (15:15)
[2020-06-07] MEDS ORDERED: Nitroglycerin 0.4 MG TAB (25 Tab Bottle) SL PRN (15:15)
[2020-06-07] MEDS ORDERED: Acetaminophen/Codeine 30-300mg Tablet PO PRN (15:15)
[2020-06-07] MEDS: Warfarin Sodium 10 MG TAB PO SCH ×2 (17:30→18:05)
[2020-06-08] MEDS: Fentanyl 100 MCG/2 ML VIAL SLOW IVP PRN ×2 (02:42→07:38)
[2020-06-08] MEDS ORDERED: Lidocaine 5% Patch TD PRN (07:33)
[2020-06-08] MEDS: Polyethylene Glycol 3350 17 GM Packet PO SCH (07:39)
[2020-06-08] MEDS: FLUoxetine HCl 20 MG CAP PO SCH (07:40)
[2020-06-08] MEDS: Carvedilol 6.25 MG TAB PO SCH ×2 (07:40→16:00)
[2020-06-08] MEDS: Acetaminophen 500 MG TAB PO SCH ×3 (07:41→23:22)
[2020-06-08] MEDS: Famotidine 20 MG TAB PO SCH ×2 (07:41→21:18)
[2020-06-08] MEDS: diphenhydrAMINE 25 MG CAP PO SCH ×3 (07:41→21:18)
[2020-06-08] MEDS: Gabapentin 300 MG CAP PO SCH ×3 (07:49→21:19)
[2020-06-08] MEDS ORDERED: Enoxaparin Sodium 80 MG/0.8 ML SYRINGE SC SCH ×2 (09:00→21:00)
[2020-06-08 10:24] LABS: Anion Gap 13 mmol/L (10-20); BUN (Urea Nitrogen) 10 mg/dL (7.0-18.7); Calc. Creatinine Clearance 224 mL/min (70-130); Calcium 8.9 mg/dL (7.8-10.44); Carbon Dioxide 19 mmol/L (22-29); Chloride 104 mmol/L (98-107); Glucose 114 mg/dL (70-105); INR-International Normal Ratio 1.2; Potassium 3.7 mmol/L (3.5-5.1); Prothrombin Time 15.4 sec (12.0-14.7); Sodium 132 mmol/L (136-145)
[2020-06-08] MEDS: Ondansetron ODT 4 MG TAB PO PRN (11:55)
[2020-06-08] MEDS ORDERED: Naproxen 500 MG TAB PO SCH ×2 (12:34→21:00)
[2020-06-08] MEDS ORDERED: Warfarin Sodium 5 MG TAB PO SCH (17:00)
[2020-06-08] MEDS ORDERED: Enoxaparin Sodium 100 MG/ML SYRINGE SC SCH (21:00)
[2020-06-08] MEDS: Acetaminophen/Codeine 30-300mg Tablet PO PRN (21:19)
[2020-06-08] MEDS: Transdermal Patch Removal TOP SCH (21:21)
[2020-06-09] MEDS: Acetaminophen/Codeine 30-300mg Tablet PO PRN ×4 (03:14→21:36)
[2020-06-09 04:51] LABS: INR-International Normal Ratio 1.8; Prothrombin Time 20.8 sec (12.0-14.7)
[2020-06-09 05:12] LABS: Anion Gap 14 mmol/L (10-20); BUN (Urea Nitrogen) 10 mg/dL (7.0-18.7); Calc. Creatinine Clearance 233 mL/min (70-130); Calcium 8.4 mg/dL (7.8-10.44); Carbon Dioxide 23 mmol/L (22-29); Chloride 103 mmol/L (98-107); Glucose 80 mg/dL (70-105); Potassium 4.2 mmol/L (3.5-5.1); Sodium 136 mmol/L (136-145)
[2020-06-09] MEDS: Carvedilol 6.25 MG TAB PO SCH ×3 (08:40→16:42)
[2020-06-09] MEDS: Enoxaparin Sodium 60 MG/0.6 ML SYRINGE SC SCH ×2 (08:41→09:26)
[2020-06-09] MEDS: diphenhydrAMINE 25 MG CAP PO SCH ×2 (08:41→21:38)
[2020-06-09] MEDS: Acetaminophen 500 MG TAB PO SCH (09:17)
[2020-06-09] MEDS: FLUoxetine HCl 20 MG CAP PO SCH (09:18)
[2020-06-09] MEDS: Polyethylene Glycol 3350 17 GM Packet PO SCH (09:18)
[2020-06-09] MEDS: Gabapentin 300 MG CAP PO SCH ×3 (09:19→21:38)
[2020-06-09] MEDS: Famotidine 20 MG TAB PO SCH (09:20)
[2020-06-09] MEDS ORDERED: Enoxaparin Sodium 100 MG/ML SYRINGE SC SCH ×2 (09:30→21:00)
[2020-06-09 09:44] LABS: Hemoglobin 14.6 g/dL (12.0-16.0); Mean Corpuscular HGB CONC 31.3 g/dL (32.0-36.0); Mean Corpuscular Hemoglobin 28.3 pg (27.0-31.0); Mean Corpuscular Volume 90.5 fL (78.0-98.0); Mean Platelet Volume 8.8 fL (7.4-10.4); Platelet Count 341 thou/uL (130-400); RBC Distribution Width 12.6 % (11.5-14.5); Red Blood Cell (RBC) Count 5.16 mill/uL (4.20-5.40); White Blood Cell (WBC) Count 17.7 thou/uL (4.8-10.8)
[2020-06-09 11:13] LABS: Eosinophils 6 % (0-10); Lymphocytes 46 % (21-51); MDiff Complete? YES; Monocytes 3 % (0-10); Neutrophil 41 % (42-75); Platelet Morphology Comment Appears Adequate; RBC Morphology Normal; Reactive Lymphocytes 3 % (0-10)
[2020-06-09] MEDS ORDERED: Naproxen 500 MG TAB PO SCH (12:00)
[2020-06-09] MEDS ORDERED: Warfarin Sodium 7.5 MG TAB PO SCH (17:00)
[2020-06-09] MEDS: Ondansetron ODT 4 MG TAB PO PRN (19:51)
[2020-06-09] MEDS: Transdermal Patch Removal TOP SCH (21:39)
[2020-06-09] MEDS: hydrOXYzine 25 MG TAB PO PRN (23:34)
[2020-06-10 05:29] LABS: INR-International Normal Ratio 2.5; Prothrombin Time 27.8 sec (12.0-14.7)
[2020-06-10] MEDS ORDERED: Acetaminophen 325 MG TAB PO PRN (08:44)
[2020-06-10] MEDS ORDERED: Enoxaparin Sodium 40 MG/0.4 ML SYRINGE SC SCH (09:00)
[2020-06-10] MEDS: Carvedilol 6.25 MG TAB PO SCH (09:03)
[2020-06-10] MEDS: FLUoxetine HCl 20 MG CAP PO SCH (09:04)
[2020-06-10] MEDS: Gabapentin 300 MG CAP PO SCH ×2 (09:04→15:20)
[2020-06-10] MEDS: Polyethylene Glycol 3350 17 GM Packet PO SCH (09:05)
[2020-06-10] MEDS ORDERED: traMADol HCl 50 MG TAB PO SCH (10:45)
[2020-06-10 15:24] VITALS: BP 125/60; TEMP 98.5
== END 2020-06-10 16:06 | disposition home or self-care (01) | DRG 287 ==
LOC: ERS 09:17 → ERHOLD 13:17 → 2SW 20:10 → OBSVTOIN 06-03 10:35 → 2NO 06-04 18:15
PROVIDERS: ADMIT Student in an Organized Health Care Education/Training Program; ATTEND Student in an Organized Health Care Education/Training Program
PROC: 4A023N7 Measurement of Cardiac Sampling and Pressure, Left Heart, Percutaneous Approach (ICD-10-PCS; principal; 2020-06-03)
PROC: B2111ZZ Fluoroscopy of Multiple Coronary Arteries using Low Osmolar Contrast (ICD-10-PCS; 2020-06-03)
DX: R07.89 Other chest pain (principal); D69.3 Immune thrombocytopenic purpura; I42.9 Cardiomyopathy, unspecified; Z68.43 Body mass index [BMI] 50.0-59.9, adult; D68.59 Other primary thrombophilia; I82.411 Acute embolism and thrombosis of right femoral vein; I50.22 Chronic systolic (congestive) heart failure; Z20.822 Contact with and (suspected) exposure to COVID-19; F41.9 Anxiety disorder, unspecified; M32.9 Systemic lupus erythematosus, unspecified; F43.10 Post-traumatic stress disorder, unspecified; F32.9 Major depressive disorder, single episode, unspecified; E66.01 Morbid (severe) obesity due to excess calories; I25.10 Atherosclerotic heart disease of native coronary artery without angina pectoris; R94.39 Abnormal result of other cardiovascular function study; Z82.49 Family history of ischemic heart disease and other diseases of the circulatory system; Z79.01 Long term (current) use of anticoagulants; I25.2 Old myocardial infarction; Z86.711 Personal history of pulmonary embolism; Z88.8 Allergy status to other drugs, medicaments and biological substances; Z91.041 Radiographic dye allergy status; Z91.040 Latex allergy status; Z91.013 Allergy to seafood; Z79.899 Other long term (current) drug therapy; Z90.81 Acquired absence of spleen; Z90.89 Acquired absence of other organs; Z89.021 Acquired absence of right finger(s); Z86.718 Personal history of other venous thrombosis and embolism
CPT/HCPCS: 36415; 36416; 71046; 71275; 74174; 76942; 78452; 80048; 80053; 81025; 82728; 83540; 83550; 83690; 84484; 85025; 85520; 85610; 85730; 87635; 93005; 93017; 93306; 93458; 93798; 94760; 96372; 96374; 96375; 96376; 99152; A9500; G0378; J0153; J1200; J1650; J1885; J2001; J2250; J2270; J2405; J2930; J3010; J7512; Q0162; Q0163; Q9967; S0028; U0003; U0005

== ENCOUNTER 2020-06-12 23:05 | Emergency (ER) | payer OTHER, MEDICAID ==
[2020-06-12] MEDS ORDERED: Morphine 4 MG/ML VIAL ONE (23:34)
[2020-06-13] MEDS ORDERED: HYDROcodone/Acetaminophen 10/325 mg Tablet ONE (01:32)
== END 2020-06-13 01:40 | disposition home or self-care (01) ==
LOC: ERS 23:05
DX: G89.18 Other acute postprocedural pain (principal); R10.31 Right lower quadrant pain; Z79.899 Other long term (current) drug therapy; G43.909 Migraine, unspecified, not intractable, without status migrainosus; I25.2 Old myocardial infarction
CPT/HCPCS: 76936; 96372; J2270

== ENCOUNTER 2020-06-19 14:38 | Observation (INO) | payer OTHER, MEDICAID ==
[2020-06-19 15:15] LABS: #Basophils 0.1 thou/uL (0.0-0.2); #Lymphocytes 3.6 thou/uL (1.20-3.40); #Monocytes 0.9 thou/uL (0.11-0.59); #Neutrophils 6.3 thou/uL (1.40-6.50); %Basophils 1.1 % (0.0-1.0); %Eosinophils 8.3 % (0.0-10.0); %Lymphocytes 30.3 % (21.0-51.0); %Monocytes 7.4 % (0.0-10.0); %Neutrophils 52.9 % (42.0-75.0); Hemoglobin 14.1 g/dL (12.0-16.0); Mean Corpuscular HGB CONC 32.3 g/dL (32.0-36.0); Mean Corpuscular Hemoglobin 28.9 pg (27.0-31.0); Mean Corpuscular Volume 89.4 fL (78.0-98.0); Platelet Count 354 thou/uL (130-400); RBC Distribution Width 12.5 % (11.5-14.5); Red Blood Cell (RBC) Count 4.88 mill/uL (4.20-5.40); White Blood Cell (WBC) Count 11.8 thou/uL (4.8-10.8)
[2020-06-19 15:43] LABS: ALT (SGPT) 18 U/L (8-55); AST (SGOT) 20 U/L (5-34); Albumin 3.6 g/dL (3.5-5.0); Alkaline Phosphatase 51 U/L (40-110); Anion Gap 15 mmol/L (10-20); BUN (Urea Nitrogen) 9 mg/dL (7.0-18.7); Bilirubin, Total 0.5 mg/dL (0.2-1.2); Calc. Creatinine Clearance 0 mL/min (70-130); Carbon Dioxide 17 mmol/L (22-29); Chloride 108 mmol/L (98-107); Globulin 3.3 g/dL (2.4-3.5); Glucose 94 mg/dL (70-105); Potassium 4.3 mmol/L (3.5-5.1); Protein, Total 6.9 g/dL (6.0-8.3); Sodium 136 mmol/L (136-145)
[2020-06-19] MEDS ORDERED: Ondansetron PF 4 MG/2 ML Vial ONE (15:57)
[2020-06-19] MEDS ORDERED: Fentanyl 100 MCG/2 ML VIAL ONE (15:57)
[2020-06-19] MEDS ORDERED: Morphine 4 MG/ML VIAL ONE ×2 (17:00→20:51)
[2020-06-19] MEDS ORDERED: Aspirin Chewable 81 MG TAB ONE (17:17)
[2020-06-19 20:07] LABS: INR-International Normal Ratio 3.3; PTT 50.7 sec (22.9-36.1); Prothrombin Time 34.2 sec (12.0-14.7)
[2020-06-19] MEDS ORDERED: Acetaminophen 650 MG Suppository PR PRN (22:28)
[2020-06-19] MEDS ORDERED: Ondansetron ODT 4 MG TAB PO PRN (22:28)
[2020-06-19] MEDS ORDERED: Ondansetron PF 4 MG/2 ML Vial IVP PRN (22:28)
[2020-06-19] MEDS ORDERED: Calcium Carbonate 500 MG ChewTAB PO PRN (22:28)
[2020-06-19] MEDS ORDERED: Acetaminophen 325 MG TAB PO PRN (22:28)
[2020-06-19] MEDS ORDERED: Fentanyl 100 MCG/2 ML VIAL SLOW IVP PRN (22:59)
[2020-06-19] MEDS ORDERED: Acetaminophen 500 MG TAB PO PRN (23:01)
[2020-06-19] MEDS ORDERED: hydrOXYzine 25 MG TAB PO PRN (23:06)
[2020-06-19 23:15] VITALS: BMI 54.6
[2020-06-19] MEDS: Morphine 4 MG/ML VIAL SLOW IVP PRN (23:29)
[2020-06-20 01:36] LABS: Complement-C4 29.3 mg/dL (15-57)
[2020-06-20 03:37] LABS: SARS-CoV-2 PCR by NAA Not Detected (NotDetected)
[2020-06-20] MEDS: Morphine 4 MG/ML VIAL SLOW IVP PRN ×3 (03:38→11:59)
[2020-06-20 05:14] LABS: #Basophils 0.1 thou/uL (0.0-0.2); #Eosinphils 1.1 thou/uL (0.0-0.7); #Lymphocytes 3.9 thou/uL (1.20-3.40); #Monocytes 1.1 thou/uL (0.11-0.59); #Neutrophils 6.2 thou/uL (1.40-6.50); %Eosinophils 8.9 % (0.0-10.0); %Lymphocytes 31.5 % (21.0-51.0); %Monocytes 8.6 % (0.0-10.0); Hemoglobin 12.7 g/dL (12.0-16.0); Mean Corpuscular HGB CONC 31.6 g/dL (32.0-36.0); Mean Corpuscular Hemoglobin 28.4 pg (27.0-31.0); Mean Corpuscular Volume 89.8 fL (78.0-98.0); Mean Platelet Volume 8.3 fL (7.4-10.4); Platelet Count 354 thou/uL (130-400); RBC Distribution Width 12.5 % (11.5-14.5); Red Blood Cell (RBC) Count 4.47 mill/uL (4.20-5.40); White Blood Cell (WBC) Count 12.3 thou/uL (4.8-10.8)
[2020-06-20 05:21] LABS: INR-International Normal Ratio 3.4; Prothrombin Time 35.4 sec (12.0-14.7)
[2020-06-20 05:36] LABS: Anion Gap 12 mmol/L (10-20); BUN (Urea Nitrogen) 10 mg/dL (7.0-18.7); Calc. Creatinine Clearance 215 mL/min (70-130); Calcium 8.7 mg/dL (7.8-10.44); Carbon Dioxide 25 mmol/L (22-29); Chloride 102 mmol/L (98-107); Glucose 89 mg/dL (70-105); Sodium 135 mmol/L (136-145)
[2020-06-20 08:38] VITALS: BP 106/67; TEMP 97.7
[2020-06-20] MEDS ORDERED: Carvedilol 6.25 MG TAB PO SCH (09:00)
[2020-06-20] MEDS ORDERED: Loratadine 10 MG TAB PO SCH (09:00)
[2020-06-20] MEDS ORDERED: Gabapentin 300 MG CAP PO SCH (09:00)
[2020-06-20] MEDS ORDERED: FLUoxetine HCl 20 MG CAP PO SCH (09:00)
[2020-06-20] MEDS ORDERED: Prazosin HCl 1 MG CAP PO SCH (21:00)
[2020-06-21] MEDS ORDERED: Warfarin Sodium 7.5 MG TAB PO SCH (17:00)
[2020-06-24 15:28] LABS: ANA Symphony (Qualitative) POSITIVE (Negative); ANA Symphony (Quantitative) 3.8 Ratio (< 0.7 Negative); Jo-1 IgG Antibody Less than 0.3 EliAU/mL (<7 Negative); RNP70 IgG Antibody Less than 0.3 EliAU/mL (<7 Negative); SSA/Ro IgG Antibody 0.3 EliAU/mL (<7 Negative); SSB/La IgG Antibody Less than 0.3 EliAU/mL (<7 Negative); Scleroderma-70 IgG Antibody Less than 0.6 EliAU/mL (<7 Negative); Smith D IgG Antibody Less than 0.8 EliAU/mL (<7 Negative); dsDNA IgG Antibody 0.8 IU/mL (<10 Negative)
== END 2020-06-20 12:53 | disposition home or self-care (01) ==
LOC: ERS 14:38 → 2SW 17:36
PROVIDERS: ADMIT Student in an Organized Health Care Education/Training Program; ATTEND Student in an Organized Health Care Education/Training Program
DX: R07.89 Other chest pain (principal); I50.20 Unspecified systolic (congestive) heart failure; I25.2 Old myocardial infarction; I25.10 Atherosclerotic heart disease of native coronary artery without angina pectoris; M32.9 Systemic lupus erythematosus, unspecified; D68.61 Antiphospholipid syndrome; I42.9 Cardiomyopathy, unspecified; Z86.718 Personal history of other venous thrombosis and embolism; Z79.01 Long term (current) use of anticoagulants; Z79.899 Other long term (current) drug therapy; Z88.0 Allergy status to penicillin; Z88.5 Allergy status to narcotic agent; Z88.8 Allergy status to other drugs, medicaments and biological substances; Z91.013 Allergy to seafood; Z91.040 Latex allergy status; Z91.041 Radiographic dye allergy status; Z20.822 Contact with and (suspected) exposure to COVID-19
CPT/HCPCS: 36415; 71045; 80048; 80053; 83690; 83880; 84484; 85025; 85379; 85610; 85652; 85730; 86038; 86160; 86225; 86235; 87635; 93005; 96374; 96375; 96376; G0378; J2270; J2405; J3010; Q0162; U0003; U0005

== ENCOUNTER 2020-06-26 01:23 | Emergency (ER) | payer OTHER, MEDICAID ==
[2020-06-26] MEDS ORDERED: Ondansetron PF 4 MG/2 ML Vial ONE (02:09)
[2020-06-26] MEDS ORDERED: Aspirin 325 MG TAB ONE (02:09)
[2020-06-26 02:15] LABS: #Basophils 0.1 thou/uL (0.0-0.2); #Eosinphils 1.4 thou/uL (0.0-0.7); #Lymphocytes 4.1 thou/uL (1.20-3.40); #Monocytes 1.3 thou/uL (0.11-0.59); %Basophils 0.9 % (0.0-1.0); %Eosinophils 10.1 % (0.0-10.0); %Lymphocytes 29.4 % (21.0-51.0); %Monocytes 9.1 % (0.0-10.0); %Neutrophils 50.5 % (42.0-75.0); Hemoglobin 14.2 g/dL (12.0-16.0); Mean Corpuscular HGB CONC 34.1 g/dL (32.0-36.0); Mean Corpuscular Hemoglobin 30.7 pg (27.0-31.0); Mean Corpuscular Volume 89.9 fL (78.0-98.0); Mean Platelet Volume 8.2 fL (7.4-10.4); Platelet Count 359 thou/uL (130-400); RBC Distribution Width 12.6 % (11.5-14.5); Red Blood Cell (RBC) Count 4.65 mill/uL (4.20-5.40)
[2020-06-26 02:40] LABS: ALT (SGPT) 14 U/L (8-55); AST (SGOT) 14 U/L (5-34); Albumin 3.9 g/dL (3.5-5.0); Alkaline Phosphatase 65 U/L (40-110); Anion Gap 16 mmol/L (10-20); BUN (Urea Nitrogen) 11 mg/dL (7.0-18.7); Bilirubin, Total 0.2 mg/dL (0.2-1.2); Calc. Creatinine Clearance 0 mL/min (70-130); Calcium 9.2 mg/dL (7.8-10.44); Carbon Dioxide 19 mmol/L (22-29); Chloride 106 mmol/L (98-107); Globulin 3.1 g/dL (2.4-3.5); Glucose 98 mg/dL (70-105); Potassium 4.2 mmol/L (3.5-5.1); Sodium 137 mmol/L (136-145)
[2020-06-26] MEDS ORDERED: diphenhydrAMINE 50 MG/ML VIAL ONE (02:46)
[2020-06-26] MEDS ORDERED: Ketorolac Tromethamine 30 MG/ML VIAL ONE (02:46)
[2020-06-26] MEDS ORDERED: methylPREDNISolone Sod Succ 40 MG VIAL ONE (02:47)
[2020-06-26] MEDS ORDERED: Famotidine/PF 20 mg/2ml Vial ONE (02:47)
[2020-06-26] MEDS ORDERED: methylPREDNISolone Sod Succ/PF 125 MG/2 ML VIAL ONE (02:50)
[2020-06-26] MEDS ORDERED: Lidocaine 1% (PF) 30 ML VIAL ONE (04:37)
[2020-06-26] MEDS ORDERED: Mag-Al 1200 mg/1200 mg/30 ML UDCUP ONE (04:37)
[2020-06-26] MEDS ORDERED: Iopamidol-370 76% 500 ML 1 ML ONE (11:54)
== END 2020-06-26 04:53 | disposition home or self-care (01) ==
LOC: ERS 01:23
DX: J18.9 Pneumonia, unspecified organism (principal); I25.10 Atherosclerotic heart disease of native coronary artery without angina pectoris; I25.2 Old myocardial infarction; Z86.711 Personal history of pulmonary embolism; Z86.718 Personal history of other venous thrombosis and embolism; I50.9 Heart failure, unspecified
CPT/HCPCS: 36415; 71045; 71275; 80053; 83880; 84484; 85025; 93005; 96374; 96375; J1200; J1885; J2001; J2405; J2920; J2930; Q9967; S0028

== ENCOUNTER 2020-06-27 08:43 | Emergency (ER) | payer OTHER, MEDICAID ==
[2020-06-27] MEDS ORDERED: Lorazepam 2 MG/ML VIAL ONE (09:12)
[2020-06-27] MEDS ORDERED: Ondansetron PF 4 MG/2 ML Vial ONE (09:12)
[2020-06-27 09:29] LABS: #Basophils 0.1 thou/uL (0.0-0.2); #Monocytes 1.6 thou/uL (0.11-0.59); #Neutrophils 12.7 thou/uL (1.40-6.50); %Basophils 0.6 % (0.0-1.0); %Eosinophils 0.2 % (0.0-10.0); %Lymphocytes 25.9 % (21.0-51.0); %Neutrophils 65.3 % (42.0-75.0); Hemoglobin 13.6 g/dL (12.0-16.0); Mean Corpuscular HGB CONC 32.2 g/dL (32.0-36.0); Mean Corpuscular Hemoglobin 28.8 pg (27.0-31.0); Mean Corpuscular Volume 89.6 fL (78.0-98.0); Mean Platelet Volume 8.4 fL (7.4-10.4); Platelet Count 364 thou/uL (130-400); RBC Distribution Width 12.9 % (11.5-14.5); Red Blood Cell (RBC) Count 4.73 mill/uL (4.20-5.40); White Blood Cell (WBC) Count 19.5 thou/uL (4.8-10.8)
[2020-06-27 09:48] LABS: INR-International Normal Ratio 3.7; Prothrombin Time 37.8 sec (12.0-14.7)
[2020-06-27] MEDS ORDERED: Ondansetron ODT 4 MG TAB ONE (09:54)
[2020-06-27] MEDS ORDERED: Lorazepam 1 MG TAB ONE (09:54)
[2020-06-27 09:57] LABS: ALT (SGPT) 13 U/L (8-55); Albumin 3.7 g/dL (3.5-5.0); Alkaline Phosphatase 61 U/L (40-110); BUN (Urea Nitrogen) 13 mg/dL (7.0-18.7); Bilirubin, Total 0.3 mg/dL (0.2-1.2); Calc. Creatinine Clearance 0 mL/min (70-130); Calcium 9.1 mg/dL (7.8-10.44); Carbon Dioxide 20 mmol/L (22-29); Chloride 108 mmol/L (98-107); Glucose 113 mg/dL (70-105); Sodium 138 mmol/L (136-145)
[2020-06-27 10:06] LABS: AST (SGOT) 15 U/L (5-34); Globulin 3.1 g/dL (2.4-3.5); Potassium 4.6 mmol/L (3.5-5.1); Protein, Total 6.8 g/dL (6.0-8.3)
[2020-06-27 10:07] LABS: Anion Gap 15 mmol/L (10-20)
[2020-06-27] MEDS ORDERED: Dexamethasone 10 MG/ML VIAL ONE (12:08)
[2020-06-27] MEDS ORDERED: HYDROcodone/Acetaminophen 5/325 mg Tablet ONE (12:49)
[2020-06-27 16:16] LABS: SARS-CoV-2 PCR by NAA Not Detected (NotDetected)
== END 2020-06-27 13:03 | disposition home or self-care (01) ==
LOC: ERS 08:43
DX: J18.9 Pneumonia, unspecified organism (principal); Z20.822 Contact with and (suspected) exposure to COVID-19; G43.909 Migraine, unspecified, not intractable, without status migrainosus; I25.2 Old myocardial infarction; Z79.899 Other long term (current) drug therapy
CPT/HCPCS: 36415; 71046; 80053; 83605; 83880; 84484; 85025; 85379; 85610; 87635; 93005; 96372; J1100; J2060; J2405; Q0162; U0003; U0005

== ENCOUNTER 2020-07-01 08:13 | Emergency (ER) | payer OTHER, MEDICAID ==
[2020-07-01 09:14] LABS: Hemoglobin 15.7 g/dL (12.0-16.0); Mean Corpuscular HGB CONC 32.9 g/dL (32.0-36.0); Mean Corpuscular Hemoglobin 29.4 pg (27.0-31.0); Mean Corpuscular Volume 89.4 fL (78.0-98.0); Mean Platelet Volume 8.3 fL (7.4-10.4); Platelet Count 411 thou/uL (130-400); RBC Distribution Width 12.8 % (11.5-14.5); Red Blood Cell (RBC) Count 5.36 mill/uL (4.20-5.40); White Blood Cell (WBC) Count 25.1 thou/uL (4.8-10.8)
[2020-07-01 09:31] LABS: Band 2 % (5-11); Lymphocytes 33 % (21-51); MDiff Complete? YES; Monocytes 7 % (0-10); Neutrophil 58 % (42-75); Platelet Morphology Comment Appears Adequate; RBC Morphology Normal
[2020-07-01] MEDS ORDERED: Acetaminophen 500 MG TAB ONE (10:02)
[2020-07-01] MEDS ORDERED: Ondansetron PF 4 MG/2 ML Vial ONE (10:02)
[2020-07-01 10:17] LABS: ALT (SGPT) 14 U/L (8-55); AST (SGOT) 12 U/L (5-34); Albumin 4.1 g/dL (3.5-5.0); Alkaline Phosphatase 64 U/L (40-110); Anion Gap 13 mmol/L (10-20); BUN (Urea Nitrogen) 18 mg/dL (7.0-18.7); Bilirubin, Total 0.2 mg/dL (0.2-1.2); Calc. Creatinine Clearance 0 mL/min (70-130); Calcium 9.2 mg/dL (7.8-10.44); Carbon Dioxide 25 mmol/L (22-29); Chloride 102 mmol/L (98-107); Globulin 3.1 g/dL (2.4-3.5); Glucose 105 mg/dL (70-105); Lipase 15 U/L (8-78); Potassium 4.2 mmol/L (3.5-5.1); Protein, Total 7.2 g/dL (6.0-8.3); Sodium 136 mmol/L (136-145)
== END 2020-07-01 10:53 | disposition home or self-care (01) ==
LOC: ERS 08:13
DX: R06.02 Shortness of breath (principal); R07.89 Other chest pain; I25.2 Old myocardial infarction; I50.9 Heart failure, unspecified; Z79.899 Other long term (current) drug therapy; Z79.82 Long term (current) use of aspirin
CPT/HCPCS: 71045; 80053; 83690; 83880; 84484; 85025; 93005; 96374; J2405

== ENCOUNTER 2020-07-18 17:35 | Emergency (ER) | payer OTHER, MEDICAID ==
[2020-07-18 18:28] LABS: Bilirubin Negative (Negative); Blood, Urine Negative (Negative); Glucose, Urine (Dipstick) Negative (Negative); Ketone, Urine Negative (Negative); Leukocyte Small (Negative); Nitrite Negative (Negative); Protein, Urine (Dipstick) Negative (Neg-Trace); Specific Gravity, Urine 1.025 (1.005-1.030); Urobilinogen 0.2 mg/dL (Less than 2)
[2020-07-18 18:34] LABS: Clarity Clear (Clear)
[2020-07-18 18:35] LABS: RBC/HPF 0-3 HPF (0-3)
[2020-07-18 18:37] LABS: Bacteria/HPF 1+ HPF (None Seen)
[2020-07-18 18:40] LABS: Mean Corpuscular HGB CONC 32.3 g/dL (32.0-36.0); Mean Corpuscular Hemoglobin 28.7 pg (27.0-31.0); Mean Corpuscular Volume 88.9 fL (78.0-98.0); Mean Platelet Volume 7.8 fL (7.4-10.4); Platelet Count 320 thou/uL (130-400); RBC Distribution Width 12.5 % (11.5-14.5); Red Blood Cell (RBC) Count 4.87 mill/uL (4.20-5.40); White Blood Cell (WBC) Count 18.3 thou/uL (4.8-10.8)
[2020-07-18 18:50] LABS: BHCG - Serum Negative (NEGATIVE); Pregs Control Background? CLEAR/WHITE (CLR/WHITE); Pregs Control Bar Appear? YES (CONTROL BAR)
[2020-07-18 18:51] LABS: INR-International Normal Ratio 1.2; PTT 29.4 sec (22.9-36.1); Prothrombin Time 15.5 sec (12.0-14.7)
[2020-07-18 19:01] LABS: ALT (SGPT) 18 U/L (8-55); AST (SGOT) 15 U/L (5-34); Albumin 4.2 g/dL (3.5-5.0); Alkaline Phosphatase 63 U/L (40-110); Anion Gap 14 mmol/L (10-20); BUN (Urea Nitrogen) 11 mg/dL (7.0-18.7); Bilirubin, Total 0.3 mg/dL (0.2-1.2); Calc. Creatinine Clearance 0 mL/min (70-130); Calcium 9.2 mg/dL (7.8-10.44); Carbon Dioxide 23 mmol/L (22-29); Chloride 102 mmol/L (98-107); Globulin 3.2 g/dL (2.4-3.5); Glucose 88 mg/dL (70-105); Lipase 12 U/L (8-78); Potassium 3.9 mmol/L (3.5-5.1); Protein, Total 7.4 g/dL (6.0-8.3); Sodium 135 mmol/L (136-145)
[2020-07-18 19:03] LABS: Band 6 % (5-11); Lymphocytes 16 % (21-51); MDiff Complete? YES; Monocytes 5 % (0-10); Neutrophil 61 % (42-75); Platelet Morphology Comment Appears Adequate; Polychromasia SLIGHT = 2-3 cells (100X) (0-2/hpf); Reactive Lymphocytes 12 % (0-10)
[2020-07-18] MEDS ORDERED: Ondansetron PF 4 MG/2 ML Vial ONE (19:14)
[2020-07-18] MEDS ORDERED: Ketorolac Tromethamine 30 MG/ML VIAL ONE ×2 (19:14→22:26)
== END 2020-07-18 23:02 | disposition home or self-care (01) ==
LOC: ERS 17:35
DX: N83.201 Unspecified ovarian cyst, right side (principal); I25.2 Old myocardial infarction; G43.909 Migraine, unspecified, not intractable, without status migrainosus; I50.9 Heart failure, unspecified; Z79.899 Other long term (current) drug therapy
CPT/HCPCS: 36415; 74176; 76856; 80053; 81003; 81015; 83690; 84703; 85025; 85610; 85730; 96372; 96374; 96375; 96376; J0500; J1885; J2405

== ENCOUNTER 2020-08-08 07:17 | Outpatient (CLI) | payer OTHER, MEDICAID ==
[2020-08-08 19:50] LABS: SARS-CoV-2 PCR by NAA Not Detected (NotDetected)
== END 2020-08-08 07:18 | disposition home or self-care (01) ==
LOC: LABBT 07:17
PROVIDERS: ATTEND Internal Medicine Gastroenterology
DX: Z01.812 Encounter for preprocedural laboratory examination (principal); K21.9 Gastro-esophageal reflux disease without esophagitis; D50.9 Iron deficiency anemia, unspecified; R11.0 Nausea; R19.7 Diarrhea, unspecified
CPT/HCPCS: U0003; U0005

== ENCOUNTER 2020-08-11 11:24 | Day surgery (SDC) | payer OTHER, MEDICAID ==
[2020-08-11 12:35] LABS: BHCG - Serum Negative (NEGATIVE); Pregs Control Background? CLEAR/WHITE (CLR/WHITE); Pregs Control Bar Appear? YES (CONTROL BAR)
[2020-08-11] MEDS ORDERED: Ondansetron PF 4 MG/2 ML Vial ONE (12:50)
[2020-08-11] MEDS ORDERED: Midazolam HCl 2 mg/2 ml Vial ONE ×2 (12:50→13:17)
[2020-08-11] MEDS ORDERED: PROPOFOL 200 MG/20 ML VIAL ONE (13:27)
== END 2020-08-11 15:00 | disposition home or self-care (01) ==
LOC: SDC 11:24
PROVIDERS: ATTEND Internal Medicine Gastroenterology
PROC: 0DB38ZX Excision of Lower Esophagus, Via Natural or Artificial Opening Endoscopic, Diagnostic (ICD-10-PCS; principal; 2020-08-11)
PROC: 0DB98ZX Excision of Duodenum, Via Natural or Artificial Opening Endoscopic, Diagnostic (ICD-10-PCS; principal; 2020-08-11)
PROC: 0DBF8ZX Excision of Right Large Intestine, Via Natural or Artificial Opening Endoscopic, Diagnostic (ICD-10-PCS; principal; 2020-08-11)
PROC: 0DB78ZX Excision of Stomach, Pylorus, Via Natural or Artificial Opening Endoscopic, Diagnostic (ICD-10-PCS; principal; 2020-08-11)
DX: K29.80 Duodenitis without bleeding (principal); K44.9 Diaphragmatic hernia without obstruction or gangrene; K29.50 Unspecified chronic gastritis without bleeding; K21.00 Gastro-esophageal reflux disease with esophagitis, without bleeding; K52.9 Noninfective gastroenteritis and colitis, unspecified; K25.9 Gastric ulcer, unspecified as acute or chronic, without hemorrhage or perforation; K22.2 Esophageal obstruction; K64.8 Other hemorrhoids; D50.9 Iron deficiency anemia, unspecified; I25.2 Old myocardial infarction; M32.9 Systemic lupus erythematosus, unspecified; E66.3 Overweight; Z68.43 Body mass index [BMI] 50.0-59.9, adult; Z88.0 Allergy status to penicillin; Z91.018 Allergy to other foods; Z91.041 Radiographic dye allergy status; Z91.040 Latex allergy status; Z91.013 Allergy to seafood; Z88.5 Allergy status to narcotic agent; Z88.8 Allergy status to other drugs, medicaments and biological substances; Z90.81 Acquired absence of spleen; Z95.5 Presence of coronary angioplasty implant and graft; Z86.711 Personal history of pulmonary embolism; Z79.01 Long term (current) use of anticoagulants; Z79.51 Long term (current) use of inhaled steroids; Z79.899 Other long term (current) drug therapy
CPT/HCPCS: 84703; 88305; J2250; J2405; J2704

== ENCOUNTER 2020-08-14 19:57 | Emergency (ER) | payer MEDICAID, OTHER ==
[2020-08-14 21:09] LABS: #Basophils 0.1 thou/uL (0.0-0.2); #Eosinphils 1.3 thou/uL (0.0-0.7); #Lymphocytes 4.5 thou/uL (1.20-3.40); #Neutrophils 6.6 thou/uL (1.40-6.50); %Basophils 0.9 % (0.0-1.0); %Eosinophils 9.8 % (0.0-10.0); %Lymphocytes 33.4 % (21.0-51.0); %Monocytes 7.3 % (0.0-10.0); %Neutrophils 48.6 % (42.0-75.0); Mean Corpuscular HGB CONC 34.7 g/dL (32.0-36.0); Mean Corpuscular Hemoglobin 31.1 pg (27.0-31.0); Mean Corpuscular Volume 89.7 fL (78.0-98.0); Platelet Count 339 thou/uL (130-400); RBC Distribution Width 12.5 % (11.5-14.5); Red Blood Cell (RBC) Count 4.81 mill/uL (4.20-5.40); White Blood Cell (WBC) Count 13.6 thou/uL (4.8-10.8)
[2020-08-14 21:20] LABS: BHCG - Serum Negative (NEGATIVE); Pregs Control Background? CLEAR/WHITE (CLR/WHITE); Pregs Control Bar Appear? YES (CONTROL BAR)
[2020-08-14 21:32] LABS: ALT (SGPT) 16 U/L (8-55); AST (SGOT) 19 U/L (5-34); Albumin 3.9 g/dL (3.5-5.0); Alkaline Phosphatase 68 U/L (40-110); Anion Gap 17 mmol/L (10-20); BUN (Urea Nitrogen) 10 mg/dL (7.0-18.7); Bilirubin, Total 0.2 mg/dL (0.2-1.2); CK (CPK) 62 U/L (29-168); Calc. Creatinine Clearance 0 mL/min (70-130); Calcium 9.1 mg/dL (7.8-10.44); Carbon Dioxide 18 mmol/L (22-29); Chloride 106 mmol/L (98-107); Globulin 3.4 g/dL (2.4-3.5); Glucose 96 mg/dL (70-105); Lipase 15 U/L (8-78); Potassium 4.1 mmol/L (3.5-5.1); Protein, Total 7.3 g/dL (6.0-8.3); Sodium 137 mmol/L (136-145)
== END 2020-08-14 22:04 | disposition home or self-care (01) ==
LOC: ERS 19:57
DX: R07.9 Chest pain, unspecified (principal); I25.2 Old myocardial infarction; G43.909 Migraine, unspecified, not intractable, without status migrainosus; Z79.899 Other long term (current) drug therapy
CPT/HCPCS: 36415; 71045; 74018; 80053; 82550; 83690; 83880; 84484; 84703; 85025; 93005

== ENCOUNTER 2020-10-06 07:48 | Emergency (ER) | payer OTHER, MEDICAID ==
[2020-10-06 11:31] LABS: #Basophils 0.1 thou/uL (0.0-0.2); #Eosinphils 0.8 thou/uL (0.0-0.7); #Monocytes 0.8 thou/uL (0.11-0.59); %Basophils 0.7 % (0.0-1.0); %Eosinophils 8.4 % (0.0-10.0); %Lymphocytes 31.4 % (21.0-51.0); %Monocytes 8.1 % (0.0-10.0); %Neutrophils 51.3 % (42.0-75.0); Hemoglobin 14.3 g/dL (12.0-16.0); Mean Corpuscular Hemoglobin 29.4 pg (27.0-31.0); Mean Platelet Volume 8.1 fL (7.4-10.4); Platelet Count 369 thou/uL (130-400); RBC Distribution Width 12.3 % (11.5-14.5); Red Blood Cell (RBC) Count 4.86 mill/uL (4.20-5.40); White Blood Cell (WBC) Count 9.7 thou/uL (4.8-10.8)
[2020-10-06 11:52] LABS: ALT (SGPT) 28 U/L (8-55); AST (SGOT) 22 U/L (5-34); Albumin 3.9 g/dL (3.5-5.0); Alkaline Phosphatase 55 U/L (40-110); Anion Gap 11 mmol/L (10-20); BUN (Urea Nitrogen) 13 mg/dL (7.0-18.7); Bilirubin, Total 0.5 mg/dL (0.2-1.2); Calc. Creatinine Clearance 0 mL/min (70-130); Calcium 9.4 mg/dL (7.8-10.44); Carbon Dioxide 28 mmol/L (22-29); Chloride 103 mmol/L (98-107); Glucose 103 mg/dL (70-105); Potassium 4.5 mmol/L (3.5-5.1); Protein, Total 6.9 g/dL (6.0-8.3); Sodium 137 mmol/L (136-145)
== END 2020-10-06 12:15 | disposition home or self-care (01) ==
LOC: ERS 07:48
DX: R53.1 Weakness (principal); I25.10 Atherosclerotic heart disease of native coronary artery without angina pectoris; I50.42 Chronic combined systolic (congestive) and diastolic (congestive) heart failure; Z86.711 Personal history of pulmonary embolism; Z86.718 Personal history of other venous thrombosis and embolism; Z79.899 Other long term (current) drug therapy
CPT/HCPCS: 36415; 80048; 83735; 83880; 84484; 85025; 93005

== ENCOUNTER 2020-11-09 15:17 | Inpatient (IN) | payer OTHER, MEDICAID ==
[2020-11-09] MEDS ORDERED: Morphine 2 MG/ML VIAL SLOW IVP PRN (20:30)
[2020-11-09] MEDS: Nitroglycerin 0.4 MG TAB (25 Tab Bottle) SL PRN ×2 (21:18→21:45)
[2020-11-09 21:45] VITALS: BMI 56.5
[2020-11-09] MEDS ORDERED: Carvedilol 25 MG TAB PO SCH (23:15)
[2020-11-09] MEDS ORDERED: Gabapentin 300 MG CAP PO SCH (23:15)
[2020-11-09] MEDS ORDERED: Carvedilol 6.25 MG TAB PO SCH (23:15)
[2020-11-09] MEDS ORDERED: Enoxaparin Sodium 120 MG/0.8 ML SYRINGE SC SCH (23:15)
[2020-11-09] MEDS ORDERED: Ondansetron PF 4 MG/2 ML Vial IVP PRN (23:51)
[2020-11-10] MEDS ORDERED: diphenhydrAMINE 25 MG CAP PO PRN (00:32)
[2020-11-10 01:13] LABS: Troponin I Less than 0.010 ng/mL (< 0.028)
[2020-11-10] MEDS: Morphine 4 MG/ML VIAL SLOW IVP PRN ×2 (01:31→05:34)
[2020-11-10 04:18] LABS: #Lymphocytes 1.9 thou/uL (1.20-3.40); #Monocytes 0.2 thou/uL (0.11-0.59); %Basophils 0.1 % (0.0-1.0); %Eosinophils 0.1 % (0.0-10.0); %Lymphocytes 13.3 % (21.0-51.0); %Monocytes 1.7 % (0.0-10.0); %Neutrophils 84.9 % (42.0-75.0); Hemoglobin 14.4 g/dL (12.0-16.0); Mean Corpuscular HGB CONC 32.4 g/dL (32.0-36.0); Mean Corpuscular Hemoglobin 28.3 pg (27.0-31.0); Mean Corpuscular Volume 87.4 fL (78.0-98.0); Mean Platelet Volume 7.8 fL (7.4-10.4); Platelet Count 225 thou/uL (130-400); RBC Distribution Width 12.2 % (11.5-14.5); Red Blood Cell (RBC) Count 5.08 mill/uL (4.20-5.40); White Blood Cell (WBC) Count 14.1 thou/uL (4.8-10.8)
[2020-11-10 04:35] LABS: Anion Gap 14 mmol/L (10-20); BUN (Urea Nitrogen) 10 mg/dL (7.0-18.7); Calc. Creatinine Clearance 245 mL/min (70-130); Calcium 9.2 mg/dL (7.8-10.44); Carbon Dioxide 23 mmol/L (22-29); Chloride 101 mmol/L (98-107); Glucose 149 mg/dL (70-105); Sodium 134 mmol/L (136-145)
[2020-11-10 04:39] LABS: Troponin I Less than 0.010 ng/mL (< 0.028)
[2020-11-10] MEDS: Aspirin Chewable 81 MG TAB PO SCH (09:35)
[2020-11-10] MEDS: Gabapentin 300 MG CAP PO SCH ×3 (09:36→21:03)
[2020-11-10] MEDS: FLUoxetine HCl 20 MG CAP PO SCH (09:36)
[2020-11-10] MEDS: Carvedilol 25 MG TAB PO SCH ×2 (09:36→21:03)
[2020-11-10] MEDS: Loratadine 10 MG TAB PO SCH (09:37)
[2020-11-10] MEDS: Sacubitril 49 MG/Valsartan 51 MG TABLET PO SCH ×2 (09:37→21:02)
[2020-11-10] MEDS: Enoxaparin Sodium 120 MG/0.8 ML SYRINGE SC SCH ×2 (09:40→21:04)
[2020-11-10] MEDS ORDERED: Ibuprofen 800 MG TAB PO SCH (09:45)
[2020-11-10] MEDS: Ibuprofen 200 MG TAB PO SCH ×2 (11:26→21:05)
[2020-11-10] MEDS: Methocarbamol 500 MG TAB PO SCH ×2 (14:15→21:03)
[2020-11-10] MEDS: Acetaminophen 325 MG TAB PO PRN (14:16)
[2020-11-10 15:19] LABS: Prothrombin Time 13.7 sec (12.0-14.7)
[2020-11-10] MEDS ORDERED: HYDROcodone/Acetaminophen 5/325 mg Tablet PO SCH (16:00)
[2020-11-10] MEDS ORDERED: HYDROcodone/Acetaminophen 5/325 mg Tablet PO PRN (16:27)
[2020-11-10] MEDS: Warfarin Sodium 10 MG TAB PO SCH (16:29)
[2020-11-10] MEDS ORDERED: hydrOXYzine 25 MG TAB PO PRN (16:50)
[2020-11-10] MEDS ORDERED: Buprenorphine Hcl [Belbuca] 150 MCG Film DT PRN (18:07)
[2020-11-10] MEDS ORDERED: Buprenorphine Hcl [Belbuca] 150 MCG Film PO PRN (18:15)
[2020-11-10] MEDS: Buprenorphine Hcl [Belbuca] 150 MCG Film PO PRN (18:18)
[2020-11-10] MEDS ORDERED: Atorvastatin Calcium 40 MG TAB PO SCH (21:00)
[2020-11-10] MEDS ORDERED: Prazosin HCl 1 MG CAP PO SCH (21:00)
[2020-11-11 05:18] LABS: INR-International Normal Ratio 1.1; Prothrombin Time 13.9 sec (12.0-14.7)
[2020-11-11] MEDS: Ibuprofen 200 MG TAB PO SCH ×2 (06:20→11:38)
[2020-11-11] MEDS: Buprenorphine Hcl [Belbuca] 150 MCG Film PO PRN (07:31)
[2020-11-11] MEDS: Enoxaparin Sodium 120 MG/0.8 ML SYRINGE SC SCH (08:50)
[2020-11-11] MEDS: Sacubitril 49 MG/Valsartan 51 MG TABLET PO SCH (08:50)
[2020-11-11] MEDS: Gabapentin 300 MG CAP PO SCH ×2 (08:50→16:08)
[2020-11-11] MEDS: Methocarbamol 500 MG TAB PO SCH (08:50)
[2020-11-11] MEDS: Aspirin Chewable 81 MG TAB PO SCH (08:50)
[2020-11-11] MEDS: Carvedilol 25 MG TAB PO SCH (08:51)
[2020-11-11] MEDS: FLUoxetine HCl 20 MG CAP PO SCH (08:51)
[2020-11-11] MEDS: Loratadine 10 MG TAB PO SCH (08:51)
[2020-11-11] MEDS: Nitroglycerin 0.4 MG TAB (25 Tab Bottle) SL PRN ×2 (12:15→12:25)
[2020-11-11] MEDS: Acetaminophen 325 MG TAB PO PRN (12:18)
[2020-11-11] MEDS ORDERED: Methocarbamol 500 MG TAB PO PRN (14:44)
[2020-11-11] MEDS ORDERED: Ibuprofen 200 MG TAB PO PRN (14:44)
[2020-11-11 15:01] LABS: Troponin I Less than 0.010 ng/mL (< 0.028)
[2020-11-11] MEDS: Warfarin Sodium 10 MG TAB PO SCH (16:09)
[2020-11-11 16:23] VITALS: BP 101/62; TEMP 98.5
== END 2020-11-11 17:43 | disposition home or self-care (01) | DRG 92 ==
LOC: 2NO 15:17 → OBSVTOIN 11-11 10:30
PROVIDERS: ADMIT Internal Medicine; ATTEND Internal Medicine
DX: G89.4 Chronic pain syndrome (principal); I42.8 Other cardiomyopathies; I50.22 Chronic systolic (congestive) heart failure; Z68.43 Body mass index [BMI] 50.0-59.9, adult; M94.0 Chondrocostal junction syndrome [Tietze]; M32.9 Systemic lupus erythematosus, unspecified; F32.9 Major depressive disorder, single episode, unspecified; Z20.822 Contact with and (suspected) exposure to COVID-19; F41.9 Anxiety disorder, unspecified; E66.01 Morbid (severe) obesity due to excess calories; I25.10 Atherosclerotic heart disease of native coronary artery without angina pectoris; F43.10 Post-traumatic stress disorder, unspecified; Z91.040 Latex allergy status; Z88.0 Allergy status to penicillin; Z91.013 Allergy to seafood; Z91.018 Allergy to other foods; Z91.048 Other nonmedicinal substance allergy status; Z88.8 Allergy status to other drugs, medicaments and biological substances; Z79.899 Other long term (current) drug therapy; Z90.49 Acquired absence of other specified parts of digestive tract; I25.2 Old myocardial infarction; Z86.718 Personal history of other venous thrombosis and embolism; Z86.711 Personal history of pulmonary embolism; Z79.01 Long term (current) use of anticoagulants; Z90.81 Acquired absence of spleen
CPT/HCPCS: 36415; 80048; 84484; 85025; 85610; 93005; 93010; 93306; J1650; J2270; Q0163

== ENCOUNTER 2020-11-15 08:44 | Emergency (ER) | payer OTHER, MEDICAID ==
[2020-11-15 09:36] LABS: #Basophils 0.1 thou/uL (0.0-0.2); #Eosinphils 1.1 thou/uL (0.0-0.7); #Lymphocytes 4.6 thou/uL (1.20-3.40); #Monocytes 0.9 thou/uL (0.11-0.59); #Neutrophils 6.7 thou/uL (1.40-6.50); %Basophils 0.8 % (0.0-1.0); %Eosinophils 8.3 % (0.0-10.0); %Lymphocytes 34.2 % (21.0-51.0); %Monocytes 6.8 % (0.0-10.0); Hemoglobin 14.7 g/dL (12.0-16.0); Mean Corpuscular HGB CONC 32.7 g/dL (32.0-36.0); Mean Corpuscular Hemoglobin 28.8 pg (27.0-31.0); Mean Corpuscular Volume 88.2 fL (78.0-98.0); Platelet Count 316 thou/uL (130-400); RBC Distribution Width 12.4 % (11.5-14.5); Red Blood Cell (RBC) Count 5.09 mill/uL (4.20-5.40); White Blood Cell (WBC) Count 13.5 thou/uL (4.8-10.8)
[2020-11-15 09:58] LABS: ALT (SGPT) 28 U/L (8-55); AST (SGOT) 22 U/L (5-34); Albumin 3.6 g/dL (3.5-5.0); Alkaline Phosphatase 54 U/L (40-110); Anion Gap 13 mmol/L (10-20); BUN (Urea Nitrogen) 18 mg/dL (7.0-18.7); Bilirubin, Total 0.5 mg/dL (0.2-1.2); Calc. Creatinine Clearance 0 mL/min (70-130); Carbon Dioxide 23 mmol/L (22-29); Chloride 104 mmol/L (98-107); Globulin 3.1 g/dL (2.4-3.5); Glucose 110 mg/dL (70-105); Potassium 5.2 mmol/L (3.5-5.1); Protein, Total 6.7 g/dL (6.0-8.3); Sodium 135 mmol/L (136-145)
== END 2020-11-15 14:20 | disposition home or self-care (01) ==
LOC: ERS 08:44
DX: T82.897A Other specified complication of cardiac prosthetic devices, implants and grafts, initial encounter (principal); R07.89 Other chest pain; G43.909 Migraine, unspecified, not intractable, without status migrainosus; I25.10 Atherosclerotic heart disease of native coronary artery without angina pectoris; I25.2 Old myocardial infarction; I50.9 Heart failure, unspecified
CPT/HCPCS: 36415; 71045; 80053; 83605; 85025; 87040; 94760

== ENCOUNTER 2021-02-14 13:53 | Outpatient (CLI) | payer OTHER, MEDICAID | END 2021-02-14 13:54 | disposition home or self-care (01) | LOC: DTY/OP 13:53 | PROVIDERS: ATTEND Family Medicine | DX: E66.01 Morbid (severe) obesity due to excess calories (principal); Z68.43 Body mass index [BMI] 50.0-59.9, adult | CPT/HCPCS: 97802 ==

== ENCOUNTER 2021-04-06 08:09 | Observation (INO) | payer OTHER, MEDICAID ==
[2021-04-06] MEDS ORDERED: Furosemide 40 MG/4 ML VIAL ONE (09:06)
[2021-04-06] MEDS ORDERED: Nitroglycerin 2% Ointment 1 INCH/1 GM Packet ONE (09:06)
[2021-04-06] MEDS ORDERED: Aspirin Chewable 81 MG TAB ONE (09:06)
[2021-04-06 09:15] LABS: Bacteria/HPF 3+ HPF (None Seen); Bilirubin Negative (Negative); Blood, Urine Negative (Negative); Clarity Turbid (Clear); Glucose, Urine (Dipstick) Greater than 1000 mg/dL (Negative); Ketone, Urine Negative (Negative); Leukocyte 500 Leu/uL (Negative); Nitrite Negative (Negative); Protein, Urine (Dipstick) 10 mg/dL (Neg-Trace); RBC/HPF None Seen HPF (0-3); Specific Gravity, Urine 1.028 (1.002-1.036); Urobilinogen Normal mg/dL (Less than 2); WBC/HPF 21-50 HPF (0-3); pH, Urine 6.5 (5.0-9.0)
[2021-04-06 09:19] LABS: #Basophils 0.1 thou/uL (0.0-0.2); #Eosinphils 1.2 thou/uL (0.0-0.7); #Monocytes 0.9 thou/uL (0.11-0.59); #Neutrophils 5.4 thou/uL (1.40-6.50); %Basophils 0.5 % (0.0-1.0); %Eosinophils 10.9 % (0.0-10.0); %Lymphocytes 28.6 % (21.0-51.0); %Monocytes 8.6 % (0.0-10.0); %Neutrophils 51.3 % (42.0-75.0); Hemoglobin 14.6 g/dL (12.0-16.0); Mean Corpuscular Hemoglobin 28.6 pg (27.0-31.0); Mean Corpuscular Volume 86.8 fL (78.0-98.0); Mean Platelet Volume 8.7 fL (7.4-10.4); Platelet Count 336 thou/uL (130-400); RBC Distribution Width 12.1 % (11.5-14.5); Red Blood Cell (RBC) Count 5.09 mill/uL (4.20-5.40); White Blood Cell (WBC) Count 10.5 thou/uL (4.8-10.8)
[2021-04-06 09:25] LABS: BHCG - Serum Negative (NEGATIVE); Pregs Control Background? CLEAR/WHITE (CLR/WHITE); Pregs Control Bar Appear? YES (CONTROL BAR)
[2021-04-06 10:44] LABS: ALT (SGPT) 15 U/L (8-55); AST (SGOT) 16 U/L (5-34); Albumin 4.2 g/dL (3.5-5.0); Alkaline Phosphatase 63 U/L (40-110); Anion Gap 8 mmol/L (10-20); BUN (Urea Nitrogen) 14 mg/dL (7.0-18.7); Bilirubin, Total 0.6 mg/dL (0.2-1.2); Calc. Creatinine Clearance 0 mL/min (70-130); Calcium 9.6 mg/dL (7.8-10.44); Carbon Dioxide 28 mmol/L (22-29); Chloride 103 mmol/L (98-107); Globulin 3.2 g/dL (2.4-3.5); Glucose 101 mg/dL (70-105); Potassium 3.9 mmol/L (3.5-5.1); Protein, Total 7.4 g/dL (6.0-8.3); Sodium 135 mmol/L (136-145)
[2021-04-06] MEDS ORDERED: Ondansetron PF 4 MG/2 ML Vial ONE (12:09)
[2021-04-06] MEDS ORDERED: Morphine 4 MG/ML VIAL ONE (12:09)
[2021-04-06] MEDS ORDERED: Ondansetron ODT 4 MG TAB PO PRN (12:56)
[2021-04-06] MEDS ORDERED: Acetaminophen 325 MG TAB PO PRN (12:56)
[2021-04-06] MEDS ORDERED: Ondansetron PF 4 MG/2 ML Vial IVP PRN (12:56)
[2021-04-06 13:13] LABS: Troponin I Less than 0.010 ng/mL (< 0.028)
[2021-04-06] MEDS ORDERED: Enoxaparin Sodium 80 MG/0.8 ML SYRINGE SC SCH (13:15)
[2021-04-06 13:52] LABS: SARS-CoV-2 NAA Rapid Test Not Detected (NotDetected)
[2021-04-06] MEDS ORDERED: hydrALAZINE 20 MG/ML VIAL SLOW IVP PRN (14:20)
[2021-04-06] MEDS ORDERED: Electrolyte Replacement Protocol 1 EACH FS SCH (14:30)
[2021-04-06] MEDS ORDERED: Electrolyte Replacement Protocol FS PRN (14:30)
[2021-04-06 15:00] VITALS: BMI 54.8
[2021-04-06] MEDS: Nitroglycerin 2% Ointment 1 INCH/1 GM Packet TOP SCH ×2 (15:19→23:02)
[2021-04-06 16:11] LABS: Troponin I Less than 0.010 ng/mL (< 0.028)
[2021-04-06] MEDS ORDERED: hydrOXYzine 25 MG TAB PO PRN (16:44)
[2021-04-06] MEDS: Carvedilol 25 MG TAB PO SCH (17:39)
[2021-04-06] MEDS: Morphine 4 MG/ML VIAL SLOW IVP PRN ×2 (17:40→21:48)
[2021-04-06 18:38] LABS: Bilirubin Negative (Negative); Blood, Urine Negative (Negative); Clarity Clear (Clear); Glucose, Urine (Dipstick) 500 mg/dL (Negative); Ketone, Urine Negative (Negative); Leukocyte 250 Leu/uL (Negative); Nitrite Negative (Negative); Protein, Urine (Dipstick) 10 mg/dL (Neg-Trace); RBC/HPF 0-3 HPF (0-3); Specific Gravity, Urine 1.023 (1.002-1.036); Urobilinogen Normal mg/dL (Less than 2)
[2021-04-06 18:39] LABS: Bacteria/HPF 1+ HPF (None Seen); Urine Culture Reflex No No
[2021-04-06] MEDS: Nitroglycerin 0.4 MG TAB (25 Tab Bottle) SL PRN ×3 (19:21→19:45)
[2021-04-06] MEDS: Gabapentin 300 MG CAP PO SCH (19:54)
[2021-04-06] MEDS: Sacubitril 49 MG/Valsartan 51 MG TABLET PO SCH (19:55)
[2021-04-06] MEDS: Enoxaparin Sodium 80 MG/0.8 ML SYRINGE SC SCH (19:59)
[2021-04-06] MEDS ORDERED: Lorazepam 2 MG/ML VIAL SLOW IVP SCH (20:30)
[2021-04-06] MEDS ORDERED: Atorvastatin Calcium 40 MG TAB PO SCH (21:00)
[2021-04-06] MEDS: predniSONE 50 MG TAB PO SCH (22:06)
[2021-04-07] MEDS: Morphine 4 MG/ML VIAL SLOW IVP PRN ×3 (02:16→10:26)
[2021-04-07] MEDS: Nitroglycerin 2% Ointment 1 INCH/1 GM Packet TOP SCH (03:13)
[2021-04-07] MEDS: predniSONE 50 MG TAB PO SCH ×2 (04:07→10:21)
[2021-04-07 04:47] LABS: #Basophils 0.1 thou/uL (0.0-0.2); #Lymphocytes 2.1 thou/uL (1.20-3.40); #Monocytes 0.1 thou/uL (0.11-0.59); #Neutrophils 7.1 thou/uL (1.40-6.50); %Basophils 0.8 % (0.0-1.0); %Eosinophils 0.4 % (0.0-10.0); %Lymphocytes 22.5 % (21.0-51.0); %Monocytes 1.5 % (0.0-10.0); %Neutrophils 74.8 % (42.0-75.0); Hemoglobin 16.8 g/dL (12.0-16.0); Mean Corpuscular HGB CONC 34.8 g/dL (32.0-36.0); Mean Corpuscular Hemoglobin 30.5 pg (27.0-31.0); Mean Corpuscular Volume 87.5 fL (78.0-98.0); Mean Platelet Volume 8.3 fL (7.4-10.4); Platelet Count 380 thou/uL (130-400); White Blood Cell (WBC) Count 9.5 thou/uL (4.8-10.8)
[2021-04-07 05:10] LABS: Anion Gap 11 mmol/L (10-20); BUN (Urea Nitrogen) 15 mg/dL (7.0-18.7); Calc. Creatinine Clearance 182 mL/min (70-130); Calcium 9.7 mg/dL (7.8-10.44); Carbon Dioxide 28 mmol/L (22-29); Chloride 101 mmol/L (98-107); Glucose 125 mg/dL (70-105); Magnesium 2.1 mg/dL (1.6-2.6); Potassium 4.1 mmol/L (3.5-5.1); Sodium 136 mmol/L (136-145)
[2021-04-07 07:47] VITALS: TEMP 98.1
[2021-04-07] MEDS ORDERED: Spironolactone 25 MG TAB PO SCH (09:00)
[2021-04-07] MEDS ORDERED: FLUoxetine HCl 20 MG CAP PO SCH (09:00)
[2021-04-07] MEDS ORDERED: Bumetanide 1 MG TAB PO SCH (09:00)
[2021-04-07] MEDS ORDERED: Regadenoson 0.4 MG/5 ML SYRINGE ONE (09:53)
[2021-04-07] MEDS ORDERED: diphenhydrAMINE 50 MG CAP PO SCH (10:00)
[2021-04-07] MEDS: Gabapentin 300 MG CAP PO SCH ×2 (10:19→14:24)
[2021-04-07] MEDS: Sacubitril 49 MG/Valsartan 51 MG TABLET PO SCH (10:20)
[2021-04-07] MEDS: Enoxaparin Sodium 80 MG/0.8 ML SYRINGE SC SCH (10:21)
[2021-04-07] MEDS: Carvedilol 25 MG TAB PO SCH (10:21)
[2021-04-07 11:21] VITALS: BP 135/83
[2021-04-07] MEDS ORDERED: Colchicine 0.6 MG TAB PO SCH (14:00)
== END 2021-04-07 14:50 | disposition home or self-care (01) ==
LOC: ERS 08:09 → 2SW 12:25 → MERGE 12:25
PROVIDERS: ADMIT Internal Medicine; ATTEND Internal Medicine
DX: R07.89 Other chest pain (principal); R06.02 Shortness of breath; M32.9 Systemic lupus erythematosus, unspecified; I50.43 Acute on chronic combined systolic (congestive) and diastolic (congestive) heart failure; I25.2 Old myocardial infarction; G89.29 Other chronic pain; R07.81 Pleurodynia; D68.61 Antiphospholipid syndrome; I42.8 Other cardiomyopathies; K21.9 Gastro-esophageal reflux disease without esophagitis; J18.9 Pneumonia, unspecified organism; E66.01 Morbid (severe) obesity due to excess calories; Z68.43 Body mass index [BMI] 50.0-59.9, adult; Z91.14 Patient's other noncompliance with medication regimen; Z86.711 Personal history of pulmonary embolism; Z86.718 Personal history of other venous thrombosis and embolism; Z79.899 Other long term (current) drug therapy; Z88.0 Allergy status to penicillin; Z88.5 Allergy status to narcotic agent; Z88.8 Allergy status to other drugs, medicaments and biological substances; Z91.013 Allergy to seafood; Z91.018 Allergy to other foods; Z95.810 Presence of automatic (implantable) cardiac defibrillator; Z90.81 Acquired absence of spleen; Z20.822 Contact with and (suspected) exposure to COVID-19
CPT/HCPCS: 36415; 71045; 71275; 78452; 80048; 80053; 81003; 81015; 83735; 83880; 84443; 84484; 84703; 85025; 93005; 93017; 93798; 96372; 96374; 96375; 96376; A9500; G0378; J1650; J1940; J2060; J2270; J2405; J2785; J7512; U0002

== ENCOUNTER 2021-06-04 13:10 | Emergency (ER) | payer OTHER, MEDICAID ==
[2021-06-04 14:16] LABS: #Basophils 0.1 thou/uL (0.0-0.2); #Eosinphils 0.6 thou/uL (0.0-0.7); #Lymphocytes 4.2 thou/uL (1.20-3.40); #Neutrophils 6.5 thou/uL (1.40-6.50); %Basophils 1.1 % (0.0-1.0); %Eosinophils 5.2 % (0.0-10.0); %Lymphocytes 33.5 % (21.0-51.0); %Neutrophils 52.3 % (42.0-75.0); Hemoglobin 15.3 g/dL (12.0-16.0); Mean Corpuscular HGB CONC 32.6 g/dL (32.0-36.0); Mean Corpuscular Hemoglobin 29.2 pg (27.0-31.0); Mean Corpuscular Volume 89.5 fL (78.0-98.0); Mean Platelet Volume 8.1 fL (7.4-10.4); Platelet Count 333 thou/uL (130-400); RBC Distribution Width 12.6 % (11.5-14.5); Red Blood Cell (RBC) Count 5.24 mill/uL (4.20-5.40); White Blood Cell (WBC) Count 12.4 thou/uL (4.8-10.8)
[2021-06-04] MEDS ORDERED: methylPREDNISolone Sod Succ 40 MG VIAL ONE (14:18)
[2021-06-04] MEDS ORDERED: Famotidine/PF 20 mg/2ml Vial ONE (14:18)
[2021-06-04] MEDS ORDERED: diphenhydrAMINE 50 MG/ML VIAL ONE (14:18)
[2021-06-04] MEDS ORDERED: Ondansetron PF 4 MG/2 ML Vial ONE (14:18)
[2021-06-04 14:34] LABS: ALT (SGPT) 16 U/L (8-55); AST (SGOT) 19 U/L (5-34); Albumin 4.1 g/dL (3.5-5.0); Alkaline Phosphatase 74 U/L (40-110); Anion Gap 12 mmol/L (10-20); BUN (Urea Nitrogen) 12 mg/dL (7.0-18.7); Bilirubin, Total 0.2 mg/dL (0.2-1.2); Calc. Creatinine Clearance 0 mL/min (70-130); Calcium 9.4 mg/dL (7.8-10.44); Carbon Dioxide 25 mmol/L (22-29); Chloride 105 mmol/L (98-107); Globulin 3.5 g/dL (2.4-3.5); Glucose 86 mg/dL (70-105); Lipase 23 U/L (8-78); Potassium 4.3 mmol/L (3.5-5.1); Protein, Total 7.6 g/dL (6.0-8.3); Sodium 138 mmol/L (136-145)
[2021-06-04] MEDS ORDERED: Fentanyl 100 MCG/2 ML VIAL ONE (16:08)
[2021-06-04] MEDS ORDERED: Furosemide 40 MG/4 ML VIAL ONE (17:31)
== END 2021-06-04 18:04 | disposition home or self-care (01) ==
LOC: ERS 13:10 → MERGE 13:10 → ERS 18:04
DX: R07.9 Chest pain, unspecified (principal); G89.29 Other chronic pain; I25.2 Old myocardial infarction; Z79.899 Other long term (current) drug therapy; Z79.82 Long term (current) use of aspirin
CPT/HCPCS: 71045; 71275; 80053; 83690; 83880; 84484; 85025; 93005; 96374; 96375; 96376; J1200; J1940; J2405; J2920; J3010; S0028

== ENCOUNTER 2021-06-09 15:19 | Emergency (ER) | payer OTHER, MEDICAID ==
[2021-06-09 16:37] LABS: #Basophils 0.1 thou/uL (0.0-0.2); #Eosinphils 0.9 thou/uL (0.0-0.7); #Lymphocytes 4.4 thou/uL (1.20-3.40); #Monocytes 0.9 thou/uL (0.11-0.59); #Neutrophils 8.8 thou/uL (1.40-6.50); %Basophils 0.4 % (0.0-1.0); %Eosinophils 5.9 % (0.0-10.0); %Lymphocytes 29.2 % (21.0-51.0); %Monocytes 5.8 % (0.0-10.0); %Neutrophils 58.7 % (42.0-75.0); Hemoglobin 14.2 g/dL (12.0-16.0); Mean Corpuscular HGB CONC 33.1 g/dL (32.0-36.0); Mean Corpuscular Hemoglobin 29.1 pg (27.0-31.0); Platelet Count 368 thou/uL (130-400); RBC Distribution Width 12.4 % (11.5-14.5); Red Blood Cell (RBC) Count 4.87 mill/uL (4.20-5.40)
[2021-06-09 16:40] LABS: BHCG - Serum Negative (NEGATIVE); Pregs Control Background? CLEAR/WHITE (CLR/WHITE); Pregs Control Bar Appear? YES (CONTROL BAR)
[2021-06-09] MEDS ORDERED: Dexamethasone 10 MG/ML VIAL ONE (16:50)
[2021-06-09] MEDS ORDERED: Ondansetron PF 4 MG/2 ML Vial ONE (16:50)
[2021-06-09 16:59] LABS: ALT (SGPT) 13 U/L (8-55); AST (SGOT) 13 U/L (5-34); Albumin 3.8 g/dL (3.5-5.0); Alkaline Phosphatase 64 U/L (40-110); Anion Gap 13 mmol/L (10-20); BUN (Urea Nitrogen) 13 mg/dL (7.0-18.7); Bilirubin, Total 0.3 mg/dL (0.2-1.2); Calc. Creatinine Clearance 0 mL/min (70-130); Calcium 9.2 mg/dL (7.8-10.44); Carbon Dioxide 23 mmol/L (22-29); Chloride 103 mmol/L (98-107); Glucose 134 mg/dL (70-105); Lipase 14 U/L (8-78); Potassium 3.9 mmol/L (3.5-5.1); Protein, Total 6.8 g/dL (6.0-8.3); Sodium 135 mmol/L (136-145)
[2021-06-09] MEDS ORDERED: Enoxaparin Sodium 30 MG/0.3 ML SYRINGE ONE (17:41)
[2021-06-09] MEDS ORDERED: Morphine 4 MG/ML VIAL ONE (17:41)
[2021-06-09] MEDS ORDERED: Enoxaparin Sodium 100 MG/ML SYRINGE ONE ×2 (17:41→17:44)
== END 2021-06-09 18:05 | disposition home or self-care (01) ==
LOC: ERS 15:19
DX: R07.89 Other chest pain (principal); I25.2 Old myocardial infarction; I25.10 Atherosclerotic heart disease of native coronary artery without angina pectoris; I50.9 Heart failure, unspecified; Z91.19 Patient's noncompliance with other medical treatment and regimen; Z86.73 Personal history of transient ischemic attack (TIA), and cerebral infarction without residual deficits; Z79.899 Other long term (current) drug therapy; Z79.82 Long term (current) use of aspirin
CPT/HCPCS: 36415; 71045; 80053; 83690; 84484; 84703; 85025; 93005; 96372; 96374; 96375; J1100; J1650; J2270; J2405

== ENCOUNTER 2021-06-12 06:56 | Emergency (ER) | payer OTHER, MEDICAID ==
[2021-06-12] MEDS ORDERED: Ondansetron ODT 4 MG TAB ONE (07:36)
[2021-06-12 08:13] LABS: Bacteria/HPF None Seen HPF (None Seen); Bilirubin Negative (Negative); Blood, Urine Negative (Negative); Clarity Clear (Clear); Glucose, Urine (Dipstick) Normal (Negative); Ketone, Urine Trace mg/dL (Negative); Leukocyte 75 Leu/uL (Negative); Nitrite Negative (Negative); Protein, Urine (Dipstick) 50 mg/dL (Neg-Trace); RBC/HPF 0-3 HPF (0-3); Specific Gravity, Urine 1.037 (1.002-1.036); Squamous Epithelial 0-3 HPF (0-3); Urobilinogen 3 mg/dL (Less than 2); pH, Urine 5.5 (5.0-9.0)
[2021-06-12 08:14] LABS: Pregnancy Test - Urine (BHCG) Negative (Negative); Pregu Control Background? CLEAR/WHITE (CLR/WHITE); Pregu Control Bar Appear? YES (CONTROL BAR); Specific Gravity 1.037 (1.002-1.036)
[2021-06-12] MEDS ORDERED: Ondansetron PF 4 MG/2 ML Vial ONE ×2 (09:29→13:14)
[2021-06-12 11:01] LABS: Mean Corpuscular HGB CONC 32.3 g/dL (32.0-36.0); Mean Corpuscular Hemoglobin 28.9 pg (27.0-31.0); Mean Corpuscular Volume 89.7 fL (78.0-98.0); Mean Platelet Volume 7.4 fL (7.4-10.4); Platelet Count 375 thou/uL (130-400); RBC Distribution Width 13.2 % (11.5-14.5); Red Blood Cell (RBC) Count 5.53 mill/uL (4.20-5.40); White Blood Cell (WBC) Count 30.6 thou/uL (4.8-10.8)
[2021-06-12 11:18] LABS: ALT (SGPT) 26 U/L (8-55); AST (SGOT) 16 U/L (5-34); Albumin 4.6 g/dL (3.5-5.0); Alkaline Phosphatase 69 U/L (40-110); Anion Gap 17 mmol/L (10-20); BUN (Urea Nitrogen) 20 mg/dL (7.0-18.7); Bilirubin, Total 0.5 mg/dL (0.2-1.2); Calc. Creatinine Clearance 0 mL/min (70-130); Carbon Dioxide 23 mmol/L (22-29); Chloride 103 mmol/L (98-107); Globulin 3.5 g/dL (2.4-3.5); Glucose 98 mg/dL (70-105); Lipase 10 U/L (8-78); Potassium 4.5 mmol/L (3.5-5.1); Protein, Total 8.1 g/dL (6.0-8.3); Sodium 138 mmol/L (136-145)
[2021-06-12 11:26] LABS: Eosinophils 2 % (0-10); Lymphocytes 12 % (21-51); MDiff Complete? YES; Monocytes 3 % (0-10); Neutrophil 83 % (42-75); RBC Morphology Normal
[2021-06-12] MEDS ORDERED: Dicyclomine 20 MG/2 ML VIAL ONE (13:26)
== END 2021-06-12 13:55 | disposition home or self-care (01) ==
LOC: ERS 06:56
DX: R10.9 Unspecified abdominal pain (principal); R11.10 Vomiting, unspecified; I25.2 Old myocardial infarction; Z86.718 Personal history of other venous thrombosis and embolism; Z86.711 Personal history of pulmonary embolism; I50.9 Heart failure, unspecified; Z79.899 Other long term (current) drug therapy
CPT/HCPCS: 74176; 80053; 81003; 81015; 81025; 83690; 85025; 96372; 96374; J0500; J2405; Q0162

== ENCOUNTER 2021-06-14 16:33 | Emergency (ER) | payer OTHER, MEDICAID ==
[2021-06-14 17:43] LABS: #Basophils 0.3 thou/uL (0.0-0.2); #Eosinphils 0.4 thou/uL (0.0-0.7); #Lymphocytes 4.4 thou/uL (1.20-3.40); #Monocytes 1.5 thou/uL (0.11-0.59); #Neutrophils 9.6 thou/uL (1.40-6.50); %Basophils 1.7 % (0.0-1.0); %Eosinophils 2.2 % (0.0-10.0); %Lymphocytes 27.5 % (21.0-51.0); %Monocytes 9.3 % (0.0-10.0); %Neutrophils 59.4 % (42.0-75.0); Hemoglobin 14.3 g/dL (12.0-16.0); Mean Corpuscular HGB CONC 31.9 g/dL (32.0-36.0); Mean Corpuscular Volume 90.8 fL (78.0-98.0); Mean Platelet Volume 7.6 fL (7.4-10.4); Platelet Count 342 thou/uL (130-400); RBC Distribution Width 13.3 % (11.5-14.5); Red Blood Cell (RBC) Count 4.95 mill/uL (4.20-5.40); White Blood Cell (WBC) Count 16.1 thou/uL (4.8-10.8)
[2021-06-14] MEDS ORDERED: Acetaminophen 500 MG TAB ONE (18:12)
[2021-06-14] MEDS ORDERED: Enoxaparin Sodium 40 MG/0.4 ML SYRINGE ONE (18:12)
[2021-06-14] MEDS ORDERED: Enoxaparin Sodium 80 MG/0.8 ML SYRINGE ONE (18:12)
[2021-06-14] MEDS ORDERED: Ibuprofen 800 MG TAB ONE (20:28)
[2021-06-14 21:20] LABS: ALT (SGPT) 23 U/L (8-55); AST (SGOT) 27 U/L (5-34); Albumin 4.2 g/dL (3.5-5.0); Alkaline Phosphatase 62 U/L (40-110); Anion Gap 14 mmol/L (10-20); BUN (Urea Nitrogen) 12 mg/dL (7.0-18.7); Bilirubin, Total 0.3 mg/dL (0.2-1.2); Calc. Creatinine Clearance 0 mL/min (70-130); Calcium 9.6 mg/dL (7.8-10.44); Carbon Dioxide 25 mmol/L (22-29); Chloride 103 mmol/L (98-107); Globulin 3.1 g/dL (2.4-3.5); Glucose 89 mg/dL (70-105); Potassium 3.6 mmol/L (3.5-5.1); Protein, Total 7.3 g/dL (6.0-8.3); Sodium 138 mmol/L (136-145)
== END 2021-06-14 20:33 | disposition home or self-care (01) ==
LOC: ERS 16:33
DX: R07.89 Other chest pain (principal); I25.10 Atherosclerotic heart disease of native coronary artery without angina pectoris; I25.2 Old myocardial infarction; I50.9 Heart failure, unspecified; M32.9 Systemic lupus erythematosus, unspecified; Z86.718 Personal history of other venous thrombosis and embolism; Z86.711 Personal history of pulmonary embolism; Z79.82 Long term (current) use of aspirin; Z79.899 Other long term (current) drug therapy
CPT/HCPCS: 71046; 80053; 84484; 85025; 93005; 96372; J1650

== ENCOUNTER 2021-06-23 19:30 | Outpatient (CLI) | payer OTHER, MEDICAID | END 2021-06-23 19:31 | disposition home or self-care (01) | LOC: SLEEPLAB 19:30 | PROVIDERS: ATTEND Student in an Organized Health Care Education/Training Program | DX: G47.33 Obstructive sleep apnea (adult) (pediatric) (principal); E66.9 Obesity, unspecified; G47.00 Insomnia, unspecified; I50.9 Heart failure, unspecified; I25.10 Atherosclerotic heart disease of native coronary artery without angina pectoris; R51.9 Headache, unspecified; I21.9 Acute myocardial infarction, unspecified; Z68.43 Body mass index [BMI] 50.0-59.9, adult | CPT/HCPCS: 95810 ==

== ENCOUNTER 2021-07-23 10:04 | Emergency (ER) | payer OTHER, MEDICAID ==
[~2021-07-23 10:04] MED LIST changes: -Ferumoxytol (ERSD) 510 MG in Sodium Chloride 0.9% 150 ML IVPB SCH; +Iopamidol-370 76% 500 ML 1 ML ONE
[2021-07-23 10:54] LABS: #Basophils 0.1 thou/uL (0.0-0.2); #Eosinphils 0.4 thou/uL (0.0-0.7); #Lymphocytes 3.7 thou/uL (1.20-3.40); #Monocytes 0.6 thou/uL (0.11-0.59); #Neutrophils 3.4 thou/uL (1.40-6.50); %Basophils 0.8 % (0.0-1.0); %Eosinophils 5.4 % (0.0-10.0); %Lymphocytes 45.3 % (21.0-51.0); %Monocytes 6.9 % (0.0-10.0); %Neutrophils 41.6 % (42.0-75.0); Hemoglobin 15.3 g/dL (12.0-16.0); Mean Corpuscular HGB CONC 32.4 g/dL (32.0-36.0); Mean Corpuscular Hemoglobin 29.3 pg (27.0-31.0); Mean Corpuscular Volume 90.4 fL (78.0-98.0); Platelet Count 476 thou/uL (130-400); RBC Distribution Width 12.8 % (11.5-14.5); White Blood Cell (WBC) Count 8.1 thou/uL (4.8-10.8)
[2021-07-23 11:03] LABS: BHCG - Serum Negative (NEGATIVE); Pregs Control Background? CLEAR/WHITE (CLR/WHITE); Pregs Control Bar Appear? YES (CONTROL BAR)
[2021-07-23 11:19] LABS: ALT (SGPT) 31 U/L (8-55); AST (SGOT) 19 U/L (5-34); Albumin 4.5 g/dL (3.5-5.0); Alkaline Phosphatase 47 U/L (40-110); Anion Gap 15 mmol/L (10-20); BUN (Urea Nitrogen) 17 mg/dL (7.0-18.7); Bilirubin, Total 0.7 mg/dL (0.2-1.2); Calc. Creatinine Clearance 0 mL/min (70-130); Carbon Dioxide 24 mmol/L (22-29); Chloride 101 mmol/L (98-107); Globulin 3.5 g/dL (2.4-3.5); Glucose 105 mg/dL (70-105); Potassium 3.7 mmol/L (3.5-5.1); Sodium 136 mmol/L (136-145)
[2021-07-23] MEDS ORDERED: Aspirin Chewable 81 MG TAB ONE (11:31)
[2021-07-23] MEDS ORDERED: diphenhydrAMINE 12.5 MG/5 ML UDCUP ONE (11:32)
[2021-07-23] MEDS ORDERED: methylPREDNISolone Sod Succ 40 MG VIAL ONE (11:32)
[2021-07-23] MEDS ORDERED: diphenhydrAMINE 50 MG/ML VIAL ONE (11:34)
[2021-07-23] MEDS ORDERED: Famotidine 40 MG/4 ML VIAL IVPB SCH (12:00)
[2021-07-23] MEDS ORDERED: Nitroglycerin 0.4 MG TAB 1 EACH ONE (12:19)
[2021-07-23] MEDS ORDERED: Morphine 4 MG/ML VIAL ONE (13:38)
[2021-07-23] MEDS ORDERED: Ondansetron PF 4 MG/2 ML Vial ONE (13:38)
== END 2021-07-23 15:58 | disposition home or self-care (01) ==
LOC: ERS 10:04
DX: J18.9 Pneumonia, unspecified organism (principal); I25.10 Atherosclerotic heart disease of native coronary artery without angina pectoris; I25.2 Old myocardial infarction; Z86.711 Personal history of pulmonary embolism; Z86.718 Personal history of other venous thrombosis and embolism; I50.9 Heart failure, unspecified; Z79.899 Other long term (current) drug therapy; Z79.82 Long term (current) use of aspirin
CPT/HCPCS: 36415; 71045; 71275; 80053; 83880; 84484; 84703; 85025; 93005; 96374; 96375; J1200; J2270; J2405; J2920; Q0163; Q9967

== ENCOUNTER 2021-08-05 21:02 | Emergency (ER) | payer OTHER, MEDICAID ==
[2021-08-05 21:56] LABS: #Basophils 0.1 thou/uL (0.0-0.2); #Eosinphils 0.6 thou/uL (0.0-0.7); #Lymphocytes 4.9 thou/uL (1.20-3.40); #Monocytes 1.1 thou/uL (0.11-0.59); #Neutrophils 6.3 thou/uL (1.40-6.50); %Basophils 0.8 % (0.0-1.0); %Eosinophils 4.3 % (0.0-10.0); %Lymphocytes 37.5 % (21.0-51.0); %Monocytes 8.6 % (0.0-10.0); %Neutrophils 48.8 % (42.0-75.0); Hemoglobin 14.5 g/dL (12.0-16.0); Mean Corpuscular HGB CONC 33.5 g/dL (32.0-36.0); Mean Corpuscular Hemoglobin 30.6 pg (27.0-31.0); Mean Corpuscular Volume 91.4 fL (78.0-98.0); Mean Platelet Volume 7.6 fL (7.4-10.4); Platelet Count 351 thou/uL (130-400); RBC Distribution Width 12.6 % (11.5-14.5); Red Blood Cell (RBC) Count 4.74 mill/uL (4.20-5.40)
[2021-08-05] MEDS ORDERED: Nitroglycerin 2% Ointment 1 INCH/1 GM Packet ONE (22:07)
[2021-08-05 22:19] LABS: ALT (SGPT) 22 U/L (8-55); AST (SGOT) 14 U/L (5-34); Albumin 4.1 g/dL (3.5-5.0); Alkaline Phosphatase 51 U/L (40-110); Anion Gap 14 mmol/L (10-20); BUN (Urea Nitrogen) 16 mg/dL (7.0-18.7); Bilirubin, Total 0.2 mg/dL (0.2-1.2); Calc. Creatinine Clearance 0 mL/min (70-130); Calcium 9.7 mg/dL (7.8-10.44); Carbon Dioxide 24 mmol/L (22-29); Chloride 106 mmol/L (98-107); Globulin 2.7 g/dL (2.4-3.5); Glucose 127 mg/dL (70-105); Potassium 4.1 mmol/L (3.5-5.1); Protein, Total 6.8 g/dL (6.0-8.3); Sodium 140 mmol/L (136-145)
[2021-08-05 22:28] LABS: CK (CPK) 95 U/L (29-168); Lipase 11 U/L (8-78)
== END 2021-08-06 02:16 | disposition home or self-care (01) ==
LOC: ERS 21:02
DX: R07.89 Other chest pain (principal); I50.9 Heart failure, unspecified; Z79.899 Other long term (current) drug therapy; Z79.82 Long term (current) use of aspirin; I25.10 Atherosclerotic heart disease of native coronary artery without angina pectoris; I25.2 Old myocardial infarction; Z86.718 Personal history of other venous thrombosis and embolism
CPT/HCPCS: 36415; 80053; 82550; 83690; 83880; 84484; 85025; 93005

== ENCOUNTER 2021-08-23 13:57 | Emergency (ER) | payer OTHER, MEDICAID ==
[2021-08-23] MEDS ORDERED: Ondansetron ODT 4 MG TAB ONE (14:40)
[2021-08-23] MEDS ORDERED: Acetaminophen 500 MG TAB ONE (14:40)
[2021-08-23 15:04] LABS: #Basophils 0.1 thou/uL (0.0-0.2); #Eosinphils 0.7 thou/uL (0.0-0.7); #Lymphocytes 3.5 thou/uL (1.20-3.40); #Monocytes 0.7 thou/uL (0.11-0.59); #Neutrophils 8.3 thou/uL (1.40-6.50); %Basophils 0.5 % (0.0-1.0); %Eosinophils 5.1 % (0.0-10.0); %Lymphocytes 26.2 % (21.0-51.0); %Monocytes 5.4 % (0.0-10.0); %Neutrophils 62.7 % (42.0-75.0); Hemoglobin 14.9 g/dL (12.0-16.0); Mean Corpuscular HGB CONC 32.8 g/dL (32.0-36.0); Mean Corpuscular Hemoglobin 29.4 pg (27.0-31.0); Mean Corpuscular Volume 89.7 fL (78.0-98.0); Mean Platelet Volume 7.7 fL (7.4-10.4); Platelet Count 355 thou/uL (130-400); Red Blood Cell (RBC) Count 5.08 mill/uL (4.20-5.40); White Blood Cell (WBC) Count 13.2 thou/uL (4.8-10.8)
[2021-08-23] MEDS ORDERED: HYDROcodone/Acetaminophen 10/325 mg Tablet ONE (15:26)
[2021-08-23 15:31] LABS: ALT (SGPT) 35 U/L (8-55); AST (SGOT) 19 U/L (5-34); Albumin 4.1 g/dL (3.5-5.0); Alkaline Phosphatase 65 U/L (40-110); Anion Gap 14 mmol/L (10-20); BUN (Urea Nitrogen) 10 mg/dL (7.0-18.7); Bilirubin, Total 0.4 mg/dL (0.2-1.2); Calc. Creatinine Clearance 0 mL/min (70-130); Calcium 9.8 mg/dL (7.8-10.44); Carbon Dioxide 23 mmol/L (22-29); Chloride 104 mmol/L (98-107); Estimated GFR 106; Globulin 3.4 g/dL (2.4-3.5); Glucose 113 mg/dL (70-105); Lipase 10 U/L (8-78); Potassium 3.6 mmol/L (3.5-5.1); Protein, Total 7.5 g/dL (6.0-8.3); Sodium 137 mmol/L (136-145)
[2021-08-23 15:33] LABS: BHCG - Serum Negative (NEGATIVE); Pregs Control Bar Appear? YES (CONTROL BAR)
[2021-08-23 15:34] LABS: Pregs Control Background? CLEAR/WHITE (CLR/WHITE)
[2021-08-23 15:47] LABS: Bilirubin Negative (Negative); Blood, Urine Negative (Negative); Clarity Clear (Clear); Glucose, Urine (Dipstick) Normal (Negative); Ketone, Urine Negative (Negative); Leukocyte 75 Leu/uL (Negative); Nitrite Negative (Negative); Protein, Urine (Dipstick) Negative (Neg-Trace); RBC/HPF 0-3 HPF (0-3); Specific Gravity, Urine 1.026 (1.002-1.036); Urobilinogen Normal mg/dL (Less than 2); pH, Urine 5.5 (5.0-9.0)
[2021-08-23 15:48] LABS: Bacteria/HPF 1+ HPF (None Seen)
[2021-08-23 18:16] LABS: Troponin I Less than 0.010 ng/mL (< 0.028)
== END 2021-08-23 18:49 | disposition home or self-care (01) ==
LOC: ERS 13:57
DX: R07.2 Precordial pain (principal); I25.2 Old myocardial infarction; G43.909 Migraine, unspecified, not intractable, without status migrainosus; I50.9 Heart failure, unspecified; Z79.899 Other long term (current) drug therapy
CPT/HCPCS: 36415; 71045; 80053; 81003; 81015; 83690; 84484; 84703; 85025; 93005; Q0162

== ENCOUNTER 2021-09-21 14:24 | Emergency (ER) | payer MEDICAID, OTHER ==
[2021-09-21] MEDS ORDERED: Iopamidol-370 76% 500 ML 1 ML ONE (14:32)
[2021-09-21 15:41] LABS: #Basophils 0.1 thou/uL (0.0-0.2); #Eosinphils 0.8 thou/uL (0.0-0.7); #Lymphocytes 3.7 thou/uL (1.20-3.40); #Monocytes 0.8 thou/uL (0.11-0.59); #Neutrophils 6.8 thou/uL (1.40-6.50); %Basophils 0.8 % (0.0-1.0); %Eosinophils 6.3 % (0.0-10.0); %Lymphocytes 30.4 % (21.0-51.0); %Monocytes 6.2 % (0.0-10.0); %Neutrophils 56.2 % (42.0-75.0); Hemoglobin 14.6 g/dL (12.0-16.0); Mean Corpuscular HGB CONC 33.1 g/dL (32.0-36.0); Mean Corpuscular Hemoglobin 29.5 pg (27.0-31.0); Mean Corpuscular Volume 89.2 fL (78.0-98.0); Platelet Count 367 thou/uL (130-400); RBC Distribution Width 12.5 % (11.5-14.5); Red Blood Cell (RBC) Count 4.96 mill/uL (4.20-5.40)
[2021-09-21 16:01] LABS: ALT (SGPT) 28 U/L (8-55); AST (SGOT) 23 U/L (5-34); Alkaline Phosphatase 56 U/L (40-110); Anion Gap 13 mmol/L (10-20); BUN (Urea Nitrogen) 8 mg/dL (7.0-18.7); Bilirubin, Total 0.5 mg/dL (0.2-1.2); Calc. Creatinine Clearance 0 mL/min (70-130); Calcium 9.5 mg/dL (7.8-10.44); Carbon Dioxide 24 mmol/L (22-29); Chloride 106 mmol/L (98-107); Estimated GFR 103; Globulin 3.1 g/dL (2.4-3.5); Glucose 93 mg/dL (70-105); Potassium 4.1 mmol/L (3.5-5.1); Protein, Total 7.1 g/dL (6.0-8.3); Sodium 139 mmol/L (136-145)
[2021-09-21] MEDS ORDERED: diphenhydrAMINE 50 MG/ML VIAL ONE (17:31)
[2021-09-21] MEDS ORDERED: Acetaminophen 500 MG TAB ONE (17:31)
[2021-09-21] MEDS ORDERED: methylPREDNISolone Sod Succ 40 MG VIAL ONE (17:31)
[2021-09-21] MEDS ORDERED: Famotidine/PF 20 mg/2ml Vial ONE (17:31)
[2021-09-21 17:44] LABS: Troponin I Less than 0.010 ng/mL (< 0.028)
[2021-09-21 17:53] LABS: BHCG - Serum Negative (NEGATIVE); Pregs Control Background? CLEAR/WHITE (CLR/WHITE); Pregs Control Bar Appear? YES (CONTROL BAR)
== END 2021-09-21 20:00 | disposition home or self-care (01) ==
LOC: ERS 14:24
DX: R07.2 Precordial pain (principal); I25.10 Atherosclerotic heart disease of native coronary artery without angina pectoris; I25.2 Old myocardial infarction; I50.9 Heart failure, unspecified; Z79.899 Other long term (current) drug therapy; Z79.82 Long term (current) use of aspirin
CPT/HCPCS: 36415; 71045; 71275; 74174; 80053; 84484; 84703; 85025; 93005; 96374; 96375; J1200; J2920; Q9967; S0028

== ENCOUNTER 2021-10-19 01:42 | Emergency (ER) | payer BC, MEDICAID ==
[2021-10-19] MEDS ORDERED: Ibuprofen 200 MG TAB ONE (02:22)
[2021-10-19 02:26] LABS: #Basophils 0.1 thou/uL (0.0-0.2); #Eosinphils 0.4 thou/uL (0.0-0.7); #Lymphocytes 1.4 thou/uL (1.20-3.40); #Monocytes 0.8 thou/uL (0.11-0.59); #Neutrophils 5.9 thou/uL (1.40-6.50); %Basophils 0.8 % (0.0-1.0); %Lymphocytes 16.7 % (21.0-51.0); %Monocytes 8.9 % (0.0-10.0); %Neutrophils 68.6 % (42.0-75.0); Hemoglobin 15.2 g/dL (12.0-16.0); Mean Corpuscular HGB CONC 33.8 g/dL (32.0-36.0); Mean Corpuscular Hemoglobin 30.6 pg (27.0-31.0); Mean Corpuscular Volume 90.5 fL (78.0-98.0); Mean Platelet Volume 7.8 fL (7.4-10.4); Platelet Count 296 thou/uL (130-400); RBC Distribution Width 12.3 % (11.5-14.5); Red Blood Cell (RBC) Count 4.98 mill/uL (4.20-5.40); White Blood Cell (WBC) Count 8.5 thou/uL (4.8-10.8)
[2021-10-19 02:50] LABS: ALT (SGPT) 40 U/L (8-55); AST (SGOT) 27 U/L (5-34); Alkaline Phosphatase 54 U/L (40-110); Anion Gap 14 mmol/L (10-20); BUN (Urea Nitrogen) 8 mg/dL (7.0-18.7); Bilirubin, Total 0.3 mg/dL (0.2-1.2); Calc. Creatinine Clearance 0 mL/min (70-130); Calcium 9.5 mg/dL (7.8-10.44); Carbon Dioxide 23 mmol/L (22-29); Chloride 103 mmol/L (98-107); Estimated GFR 91; Globulin 3.2 g/dL (2.4-3.5); Glucose 118 mg/dL (70-105); Lipase 13 U/L (8-78); Protein, Total 7.2 g/dL (6.0-8.3); Sodium 136 mmol/L (136-145)
[2021-10-19] MEDS ORDERED: Morphine 4 MG/ML VIAL ONE ×2 (03:02→04:30)
[2021-10-19 03:14] LABS: SARS-CoV-2 NAA Rapid Test Not Detected (NotDetected)
[2021-10-19] MEDS ORDERED: Promethazine HCl 25 MG in Sodium Chloride 0.9% 50 ML IVPB SCH (03:15)
[2021-10-19 03:21] LABS: Bilirubin Negative (Negative); Blood, Urine Negative (Negative); Clarity Clear (Clear); Glucose, Urine (Dipstick) Normal (Negative); Ketone, Urine Negative (Negative); Leukocyte Negative Leu/uL (Negative); Nitrite Negative (Negative); Protein, Urine (Dipstick) Negative (Neg-Trace); Specific Gravity, Urine 1.018 (1.002-1.036); Urobilinogen Normal mg/dL (Less than 2)
[2021-10-19] MEDS ORDERED: methylPREDNISolone Sod Succ/PF 125 MG/2 ML VIAL ONE (03:36)
[2021-10-19] MEDS ORDERED: diphenhydrAMINE 50 MG/ML VIAL ONE (03:36)
[2021-10-19 03:37] LABS: BHCG - Serum Negative (NEGATIVE); Pregs Control Background? CLEAR/WHITE (CLR/WHITE); Pregs Control Bar Appear? YES (CONTROL BAR)
[2021-10-19] MEDS ORDERED: Iopamidol-370 76% 500 ML 1 ML ONE (15:52)
== END 2021-10-19 07:43 | disposition home or self-care (01) ==
LOC: ERS 01:42
DX: R11.2 Nausea with vomiting, unspecified (principal); R50.9 Fever, unspecified; Z20.822 Contact with and (suspected) exposure to COVID-19; M54.50 Low back pain, unspecified; Z86.718 Personal history of other venous thrombosis and embolism; Z86.711 Personal history of pulmonary embolism; I50.9 Heart failure, unspecified; I25.10 Atherosclerotic heart disease of native coronary artery without angina pectoris; I25.2 Old myocardial infarction; Z79.899 Other long term (current) drug therapy; Z79.82 Long term (current) use of aspirin
CPT/HCPCS: 71045; 71275; 74177; 80053; 81003; 83690; 84703; 85025; 87040; 87086; 93005; 96361; 96374; 96375; 96376; J1200; J2270; J2550; J2930; Q9967

== ENCOUNTER 2021-11-07 04:45 | Emergency (ER) | payer MEDICAID ==
[2021-11-07 05:41] LABS: #Basophils 0.1 thou/uL (0.0-0.2); #Eosinphils 0.7 thou/uL (0.0-0.7); #Lymphocytes 4.4 thou/uL (1.20-3.40); #Monocytes 1.1 thou/uL (0.11-0.59); #Neutrophils 7.2 thou/uL (1.40-6.50); %Basophils 0.5 % (0.0-1.0); %Eosinophils 5.4 % (0.0-10.0); %Lymphocytes 32.5 % (21.0-51.0); %Monocytes 8.4 % (0.0-10.0); %Neutrophils 53.2 % (42.0-75.0); Hemoglobin 14.3 g/dL (12.0-16.0); Mean Corpuscular HGB CONC 33.3 g/dL (32.0-36.0); Mean Corpuscular Hemoglobin 29.8 pg (27.0-31.0); Mean Corpuscular Volume 89.4 fL (78.0-98.0); Mean Platelet Volume 7.9 fL (7.4-10.4); Platelet Count 383 thou/uL (130-400); RBC Distribution Width 12.1 % (11.5-14.5); White Blood Cell (WBC) Count 13.6 thou/uL (4.8-10.8)
[2021-11-07 05:50] LABS: BHCG - Serum Negative (NEGATIVE); Pregs Control Background? CLEAR/WHITE (CLR/WHITE); Pregs Control Bar Appear? YES (CONTROL BAR)
[2021-11-07 06:02] LABS: ALT (SGPT) 33 U/L (8-55); AST (SGOT) 25 U/L (5-34); Albumin 4.1 g/dL (3.5-5.0); Alkaline Phosphatase 77 U/L (40-110); Anion Gap 13 mmol/L (10-20); BUN (Urea Nitrogen) 12 mg/dL (7.0-18.7); Bilirubin, Total 0.2 mg/dL (0.2-1.2); Calc. Creatinine Clearance 0 mL/min (70-130); Calcium 9.9 mg/dL (7.8-10.44); Carbon Dioxide 21 mmol/L (22-29); Chloride 107 mmol/L (98-107); Estimated GFR 101; Globulin 3.6 g/dL (2.4-3.5); Glucose 149 mg/dL (70-105); Potassium 3.9 mmol/L (3.5-5.1); Protein, Total 7.7 g/dL (6.0-8.3); Sodium 137 mmol/L (136-145)
[2021-11-07] MEDS ORDERED: HYDROcodone/Acetaminophen 10/325 mg Tablet ONE (08:08)
== END 2021-11-07 05:09 | disposition home or self-care (01) ==
LOC: ERS 04:45
DX: R07.89 Other chest pain (principal); I25.2 Old myocardial infarction; I25.10 Atherosclerotic heart disease of native coronary artery without angina pectoris; Z86.718 Personal history of other venous thrombosis and embolism; Z86.711 Personal history of pulmonary embolism
CPT/HCPCS: 36415; 71045; 80053; 84484; 84703; 85025; 93005

== ENCOUNTER 2021-12-27 15:09 | Emergency (ER) | payer OTHER ==
[2021-12-27 16:43] LABS: #Eosinphils 0.4 thou/uL (0.0-0.7); #Monocytes 0.9 thou/uL (0.11-0.59); #Neutrophils 2.4 thou/uL (1.40-6.50); %Basophils 0.4 % (0.0-1.0); %Eosinophils 6.2 % (0.0-10.0); %Lymphocytes 44.4 % (21.0-51.0); %Monocytes 12.9 % (0.0-10.0); %Neutrophils 36.1 % (42.0-75.0); Hemoglobin 12.3 g/dL (12.0-16.0); Mean Corpuscular HGB CONC 30.6 g/dL (32.0-36.0); Mean Corpuscular Hemoglobin 28.2 pg (27.0-31.0); Mean Corpuscular Volume 92.3 fl (78.0-98.0); Platelet Count 326 10x3/uL (130-400); Red Blood Cell (RBC) Count 4.37 mill/uL (4.20-5.40); White Blood Cell (WBC) Count 6.7 10x3/uL (4.8-10.8)
[2021-12-27 16:44] LABS: BHCG - Serum Negative (NEGATIVE); Pregs Control Background? CLEAR/WHITE (CLR/WHITE); Pregs Control Bar Appear? YES (CONTROL BAR)
[2021-12-27 17:09] LABS: ALT (SGPT) 58 U/L (8-55); AST (SGOT) 61 U/L (5-34); Albumin 4.4 g/dL (3.5-5.0); Alkaline Phosphatase 57 U/L (40-110); Anion Gap 16 mmol/L (10-20); BUN (Urea Nitrogen) 6 mg/dL (7.0-18.7); Bilirubin, Total 0.5 mg/dL (0.2-1.2); Calc. Creatinine Clearance 0 mL/min (70-130); Calcium 10.1 mg/dL (7.8-10.44); Carbon Dioxide 21 mmol/L (22-29); Chloride 106 mmol/L (98-107); Estimated GFR 100; Globulin 3.5 g/dL (2.4-3.5); Glucose 91 mg/dL (70-105); Lipase 21 U/L (8-78); Protein, Total 7.9 g/dL (6.0-8.3); Sodium 139 mmol/L (136-145)
[2021-12-27] MEDS ORDERED: diphenhydrAMINE 50 MG/ML VIAL ONE (18:44)
[2021-12-27] MEDS ORDERED: methylPREDNISolone Sod Succ 40 MG VIAL ONE (18:44)
[2021-12-27] MEDS ORDERED: Famotidine/PF 20 mg/2ml Vial ONE (18:44)
[2021-12-27] MEDS ORDERED: Ondansetron PF 4 MG/2 ML Vial ONE (19:06)
[2021-12-27] MEDS ORDERED: Morphine 4 MG/ML VIAL ONE ×2 (19:06→20:59)
[2021-12-27 19:54] LABS: Bacteria/HPF None Seen HPF (None Seen); Bilirubin Negative (Negative); Blood, Urine Negative (Negative); Clarity Clear (Clear); Glucose, Urine (Dipstick) Normal (Negative); Ketone, Urine Negative (Negative); Leukocyte 25 Leu/uL (Negative); Nitrite Negative (Negative); Protein, Urine (Dipstick) 20 mg/dL (Neg-Trace); RBC/HPF 0-3 HPF (0-3); Specific Gravity, Urine 1.025 (1.002-1.036); Squamous Epithelial 0-3 HPF (0-3); Urobilinogen Normal mg/dL (Less than 2); WBC/HPF 0-3 HPF (0-3); pH, Urine 6.5 (5.0-9.0)
== END 2021-12-27 21:37 | disposition home or self-care (01) ==
LOC: ERS 15:09
DX: Z53.21 Procedure and treatment not carried out due to patient leaving prior to being seen by health care provider (principal)
CPT/HCPCS: 36415; 74177; 76705; 80053; 81003; 81015; 83690; 84703; 85025; 96374; 96375; 96376; J1200; J2270; J2405; J2920; Q9967; S0028

== ENCOUNTER 2022-01-11 14:50 | Emergency (ER) | payer MEDICAID, OTHER ==
[2022-01-11] MEDS ORDERED: Iopamidol-370 76% 500 ML 1 ML ONE (14:55)
[2022-01-11] MEDS ORDERED: Ondansetron PF 4 MG/2 ML Vial ONE (15:33)
[2022-01-11] MEDS ORDERED: FENTANYL 50 MCG/ML 1 ML VIAL ONE (15:33)
[2022-01-11 15:42] LABS: #Basophils 0.1 thou/uL (0.0-0.2); #Eosinphils 0.4 thou/uL (0.0-0.7); #Lymphocytes 3.1 thou/uL (1.20-3.40); #Monocytes 1.2 thou/uL (0.11-0.59); #Neutrophils 10.8 thou/uL (1.40-6.50); %Basophils 0.4 % (0.0-1.0); %Eosinophils 2.5 % (0.0-10.0); %Lymphocytes 19.7 % (21.0-51.0); %Monocytes 7.9 % (0.0-10.0); %Neutrophils 69.5 % (42.0-75.0); Mean Corpuscular HGB CONC 31.1 g/dL (32.0-36.0); Mean Corpuscular Hemoglobin 27.5 pg (27.0-31.0); Mean Corpuscular Volume 88.6 fl (78.0-98.0); Mean Platelet Volume 8.6 fL (7.4-10.4); Platelet Count 295 10x3/uL (130-400); RBC Distribution Width 14.7 % (11.5-14.5); Red Blood Cell (RBC) Count 4.72 mill/uL (4.20-5.40); White Blood Cell (WBC) Count 15.5 10x3/uL (4.8-10.8)
[2022-01-11 16:09] LABS: ALT (SGPT) 20 U/L (8-55); AST (SGOT) 24 U/L (5-34); Albumin 3.9 g/dL (3.5-5.0); Alkaline Phosphatase 56 U/L (40-110); Anion Gap 11 mmol/L (10-20); BUN (Urea Nitrogen) 14 mg/dL (7.0-18.7); Bilirubin, Total 0.3 mg/dL (0.2-1.2); Calc. Creatinine Clearance 0 mL/min (70-130); Calcium 9.5 mg/dL (7.8-10.44); Carbon Dioxide 23 mmol/L (22-29); Chloride 104 mmol/L (98-107); Estimated GFR 102; Globulin 3.3 g/dL (2.4-3.5); Glucose 130 mg/dL (70-105); Potassium 3.9 mmol/L (3.5-5.1); Protein, Total 7.2 g/dL (6.0-8.3); Sodium 134 mmol/L (136-145)
[2022-01-11] MEDS ORDERED: diphenhydrAMINE 50 MG/ML VIAL ONE (16:35)
[2022-01-11] MEDS ORDERED: methylPREDNISolone Sod Succ 40 MG VIAL ONE (16:35)
[2022-01-11] MEDS ORDERED: Famotidine/PF 20 mg/2ml Vial ONE (16:35)
[2022-01-11 16:45] LABS: BHCG - Serum Negative (NEGATIVE); Pregs Control Background? CLEAR/WHITE (CLR/WHITE); Pregs Control Bar Appear? YES (CONTROL BAR)
[2022-01-11] MEDS ORDERED: Morphine 4 MG/ML VIAL ONE (18:48)
== END 2022-01-11 21:12 | disposition home or self-care (01) ==
LOC: ERS 14:50
DX: R10.31 Right lower quadrant pain (principal); I50.9 Heart failure, unspecified; T81.89XA Other complications of procedures, not elsewhere classified, initial encounter
CPT/HCPCS: 36415; 72193; 80053; 83605; 84703; 85025; 87040; 87077; 87149; 96374; 96375; J1200; J2270; J2405; J2920; J3010; Q9967; S0028

== ENCOUNTER 2022-01-21 15:05 | Emergency (ER) | payer MEDICAID, OTHER ==
[2022-01-21 15:50] LABS: #Basophils 0.1 thou/uL (0.0-0.2); #Eosinphils 0.8 thou/uL (0.0-0.7); #Lymphocytes 2.3 thou/uL (1.20-3.40); #Monocytes 0.9 thou/uL (0.11-0.59); #Neutrophils 7.2 thou/uL (1.40-6.50); %Basophils 0.8 % (0.0-1.0); %Eosinophils 7.1 % (0.0-10.0); %Monocytes 8.1 % (0.0-10.0); %Neutrophils 63.9 % (42.0-75.0); Hemoglobin 12.9 g/dL (12.0-16.0); Mean Corpuscular HGB CONC 31.4 g/dL (32.0-36.0); Mean Corpuscular Hemoglobin 27.5 pg (27.0-31.0); Mean Corpuscular Volume 87.5 fl (78.0-98.0); Mean Platelet Volume 8.2 fL (7.4-10.4); Platelet Count 304 10x3/uL (130-400); RBC Distribution Width 14.6 % (11.5-14.5); Red Blood Cell (RBC) Count 4.69 mill/uL (4.20-5.40); White Blood Cell (WBC) Count 11.3 10x3/uL (4.8-10.8)
[2022-01-21 16:11] LABS: ALT (SGPT) 26 U/L (8-55); AST (SGOT) 22 U/L (5-34); Albumin 4.1 g/dL (3.5-5.0); Alkaline Phosphatase 64 U/L (40-110); Anion Gap 14 mmol/L (10-20); BUN (Urea Nitrogen) 8 mg/dL (7.0-18.7); Bilirubin, Total 0.2 mg/dL (0.2-1.2); Calc. Creatinine Clearance 0 mL/min (70-130); Calcium 9.4 mg/dL (7.8-10.44); Carbon Dioxide 21 mmol/L (22-29); Chloride 106 mmol/L (98-107); Estimated GFR 103; Globulin 3.2 g/dL (2.4-3.5); Glucose 111 mg/dL (70-105); Potassium 3.9 mmol/L (3.5-5.1); Protein, Total 7.3 g/dL (6.0-8.3); Sodium 137 mmol/L (136-145)
[2022-01-21] MEDS ORDERED: Morphine 4 MG/ML VIAL ONE ×3 (17:31→21:06)
[2022-01-21] MEDS ORDERED: Ondansetron PF 4 MG/2 ML Vial ONE (17:31)
[2022-01-21] MEDS ORDERED: Famotidine/PF 20 mg/2ml Vial ONE (19:07)
[2022-01-21] MEDS ORDERED: methylPREDNISolone Sod Succ/PF 125 MG/2 ML VIAL ONE (19:07)
[2022-01-21] MEDS ORDERED: diphenhydrAMINE 50 MG/ML VIAL ONE (19:07)
[2022-01-21 19:43] LABS: Lactic Acid 1.7 mmol/L (0.5-2.2)
== END 2022-01-21 22:21 | disposition home or self-care (01) ==
LOC: ERS 15:05
DX: T85.79XA Infection and inflammatory reaction due to other internal prosthetic devices, implants and grafts, initial encounter (principal); I25.10 Atherosclerotic heart disease of native coronary artery without angina pectoris; Z86.711 Personal history of pulmonary embolism; Z86.718 Personal history of other venous thrombosis and embolism; I50.9 Heart failure, unspecified; Z79.899 Other long term (current) drug therapy
CPT/HCPCS: 36415; 72193; 80053; 83605; 85025; 87040; 96374; 96375; 96376; J1200; J2270; J2405; J2930; S0028

== ENCOUNTER 2022-03-17 17:23 | Emergency (ER) | payer MEDICAID ==
[2022-03-17] MEDS ORDERED: HYDROcodone/Acetaminophen 5/325 mg Tablet ONE (20:12)
== END 2022-03-17 22:32 | disposition home or self-care (01) ==
LOC: ERS 17:23
DX: L04.1 Acute lymphadenitis of trunk (principal)
CPT/HCPCS: 72192

== ENCOUNTER 2022-03-26 13:50 | Outpatient (CLI) | payer MEDICAID | END 2022-03-26 13:51 | disposition home or self-care (01) | LOC: BICRAD 13:50 | DX: M79.641 Pain in right hand (principal); M54.2 Cervicalgia; M54.50 Low back pain, unspecified; M25.531 Pain in right wrist | CPT/HCPCS: 72040; 72100 ==

== ENCOUNTER 2022-04-01 15:22 | Emergency (ER) | payer MEDICAID ==
[2022-04-01 17:31] LABS: Bilirubin Negative (Negative); Blood, Urine Negative (Negative); Clarity Clear (Clear); Glucose, Urine (Dipstick) Normal (Negative); Ketone, Urine Negative (Negative); Leukocyte 250 Leu/uL (Negative); Nitrite Negative (Negative); Pregnancy Test - Urine (BHCG) Negative (Negative); Pregu Control Background? CLEAR/WHITE (CLR/WHITE); Pregu Control Bar Appear? YES (CONTROL BAR); Protein, Urine (Dipstick) 10 mg/dL (Neg-Trace); RBC/HPF 0-3 HPF (0-3); Specific Gravity 1.024 (1.002-1.036); Specific Gravity, Urine 1.024 (1.002-1.036); Squamous Epithelial 0-3 HPF (0-3); Urobilinogen Normal mg/dL (Less than 2); pH, Urine 6.5 (5.0-9.0)
[2022-04-01 17:32] LABS: Bacteria/HPF 1+ HPF (None Seen)
[2022-04-01] MEDS ORDERED: HYDROcodone/Acetaminophen 10/325 mg Tablet ONE (17:41)
== END 2022-04-01 17:45 | disposition home or self-care (01) ==
LOC: ERS 15:22
DX: R19.09 Other intra-abdominal and pelvic swelling, mass and lump (principal); I25.10 Atherosclerotic heart disease of native coronary artery without angina pectoris; I50.9 Heart failure, unspecified; Z79.899 Other long term (current) drug therapy
CPT/HCPCS: 81003; 81015; 81025; 99283

== ENCOUNTER 2022-04-20 14:16 | Emergency (ER) | payer MEDICAID ==
[2022-04-20 15:00] LABS: #Basophils 0.1 thou/uL (0.0-0.2); #Eosinphils 0.9 thou/uL (0.0-0.7); #Lymphocytes 3.7 thou/uL (1.20-3.40); #Monocytes 0.8 thou/uL (0.11-0.59); #Neutrophils 7.2 thou/uL (1.40-6.50); %Basophils 0.7 % (0.0-1.0); %Eosinophils 6.9 % (0.0-10.0); %Lymphocytes 29.1 % (21.0-51.0); %Monocytes 6.3 % (0.0-10.0); Hemoglobin 13.8 g/dL (12.0-16.0); Mean Corpuscular HGB CONC 32.1 g/dL (32.0-36.0); Mean Corpuscular Hemoglobin 26.6 pg (27.0-31.0); Mean Corpuscular Volume 82.9 fl (78.0-98.0); Mean Platelet Volume 8.2 fL (7.4-10.4); Platelet Count 410 10x3/uL (130-400); RBC Distribution Width 16.2 % (11.5-14.5); Red Blood Cell (RBC) Count 5.19 mill/uL (4.20-5.40); White Blood Cell (WBC) Count 12.7 10x3/uL (4.8-10.8)
[2022-04-20] MEDS ORDERED: ISOVUE-370 76%-LOCM 1 ML ONE (15:07)
[2022-04-20 15:38] LABS: ALT (SGPT) 18 U/L (8-55); AST (SGOT) 16 U/L (5-34); Alkaline Phosphatase 65 U/L (40-110); Anion Gap 16 mmol/L (10-20); BUN (Urea Nitrogen) 11 mg/dL (7.0-18.7); Bilirubin, Total 0.3 mg/dL (0.2-1.2); Calc. Creatinine Clearance 0 mL/min (70-130); Calcium 9.6 mg/dL (7.8-10.44); Carbon Dioxide 21 mmol/L (22-29); Chloride 105 mmol/L (98-107); Estimated GFR 95; Globulin 3.4 g/dL (2.4-3.5); Glucose 90 mg/dL (70-105); Protein, Total 7.4 g/dL (6.0-8.3); Sodium 138 mmol/L (136-145)
[2022-04-20] MEDS ORDERED: methylPREDNISolone Sod Succ 40 MG VIAL ONE (17:22)
[2022-04-20] MEDS ORDERED: Famotidine/PF 20 mg/2ml Vial ONE (17:22)
[2022-04-20] MEDS ORDERED: diphenhydrAMINE 50 MG/ML VIAL ONE (17:22)
[2022-04-20] MEDS ORDERED: Ondansetron PF 4 MG/2 ML Vial ONE (18:05)
[2022-04-20] MEDS ORDERED: FENTANYL 50 MCG/ML 1 ML VIAL ONE (18:05)
[2022-04-20 19:11] LABS: BHCG - Serum Negative (NEGATIVE); Pregs Control Background? CLEAR/WHITE (CLR/WHITE); Pregs Control Bar Appear? YES (CONTROL BAR)
[2022-04-20] MEDS ORDERED: HYDROcodone/Acetaminophen 10/325 mg Tablet ONE (21:04)
== END 2022-04-20 21:20 | disposition home or self-care (01) ==
LOC: ERS 14:16
DX: R07.2 Precordial pain (principal); I25.10 Atherosclerotic heart disease of native coronary artery without angina pectoris; I25.2 Old myocardial infarction
CPT/HCPCS: 36415; 71045; 71275; 80053; 84484; 84703; 85025; 93005; 96372; 96374; 96375; J1200; J1650; J2405; J2920; J3010; S0028

== ENCOUNTER 2022-04-29 11:56 | Emergency (ER) | payer MEDICAID ==
[2022-04-29 13:51] LABS: #Basophils 0.1 thou/uL (0.0-0.2); #Eosinphils 1.1 thou/uL (0.0-0.7); #Lymphocytes 4.1 thou/uL (1.20-3.40); #Neutrophils 6.5 thou/uL (1.40-6.50); %Basophils 0.8 % (0.0-1.0); %Eosinophils 8.3 % (0.0-10.0); %Lymphocytes 31.9 % (21.0-51.0); %Monocytes 7.8 % (0.0-10.0); %Neutrophils 51.2 % (42.0-75.0); Hemoglobin 13.3 g/dL (12.0-16.0); Mean Corpuscular Hemoglobin 27.1 pg (27.0-31.0); Mean Platelet Volume 8.1 fL (7.4-10.4); Platelet Count 402 10x3/uL (130-400); RBC Distribution Width 15.7 % (11.5-14.5); Red Blood Cell (RBC) Count 4.92 mill/uL (4.20-5.40); White Blood Cell (WBC) Count 12.7 10x3/uL (4.8-10.8)
[2022-04-29 14:13] LABS: ALT (SGPT) 20 U/L (8-55); AST (SGOT) 16 U/L (5-34); Alkaline Phosphatase 57 U/L (40-110); Anion Gap 16 mmol/L (10-20); BUN (Urea Nitrogen) 16 mg/dL (7.0-18.7); Bilirubin, Total 0.4 mg/dL (0.2-1.2); Calc. Creatinine Clearance 0 mL/min (70-130); Carbon Dioxide 21 mmol/L (22-29); Chloride 103 mmol/L (98-107); Estimated GFR 102; Globulin 3.2 g/dL (2.4-3.5); Glucose 108 mg/dL (70-105); Lipase 16 U/L (8-78); Potassium 3.8 mmol/L (3.5-5.1); Protein, Total 7.2 g/dL (6.0-8.3); Sodium 136 mmol/L (136-145)
[2022-04-29] MEDS ORDERED: Ondansetron PF 4 MG/2 ML Vial ONE (14:29)
[2022-04-29] MEDS ORDERED: Acetaminophen 500 MG TAB ONE (14:38)
== END 2022-04-29 15:45 | disposition home or self-care (01) ==
LOC: ERS 11:56
DX: R07.9 Chest pain, unspecified (principal); D72.829 Elevated white blood cell count, unspecified; I50.9 Heart failure, unspecified; I25.10 Atherosclerotic heart disease of native coronary artery without angina pectoris; Z79.899 Other long term (current) drug therapy
CPT/HCPCS: 71045; 80053; 83690; 83880; 84484; 85025; 93005; 96374; J2405

== ENCOUNTER 2022-05-08 15:44 | Emergency (ER) | payer MEDICAID ==
[2022-05-08] MEDS ORDERED: Morphine 4 MG/ML VIAL ONE ×3 (18:04→19:44)
[2022-05-08 18:34] LABS: #Basophils 0.1 thou/uL (0.0-0.2); #Eosinphils 0.8 thou/uL (0.0-0.7); #Lymphocytes 3.4 thou/uL (1.20-3.40); #Monocytes 0.9 thou/uL (0.11-0.59); #Neutrophils 7.7 thou/uL (1.40-6.50); %Basophils 0.8 % (0.0-1.0); %Eosinophils 6.2 % (0.0-10.0); %Lymphocytes 26.2 % (21.0-51.0); %Monocytes 6.7 % (0.0-10.0); %Neutrophils 60.2 % (42.0-75.0); Mean Corpuscular HGB CONC 32.7 g/dL (32.0-36.0); Mean Corpuscular Hemoglobin 26.9 pg (27.0-31.0); Mean Corpuscular Volume 82.1 fl (78.0-98.0); Mean Platelet Volume 8.5 fL (7.4-10.4); Platelet Count 370 10x3/uL (130-400); RBC Distribution Width 15.4 % (11.5-14.5); Red Blood Cell (RBC) Count 4.83 mill/uL (4.20-5.40); White Blood Cell (WBC) Count 12.8 10x3/uL (4.8-10.8)
[2022-05-08 18:44] LABS: BHCG - Serum Negative (NEGATIVE)
[2022-05-08 18:45] LABS: Pregs Control Background? CLEAR/WHITE (CLR/WHITE); Pregs Control Bar Appear? YES (CONTROL BAR)
[2022-05-08 18:48] LABS: ALT (SGPT) 26 U/L (8-55); AST (SGOT) 23 U/L (5-34); Albumin 4.1 g/dL (3.5-5.0); Alkaline Phosphatase 54 U/L (40-110); Anion Gap 13 mmol/L (10-20); BUN (Urea Nitrogen) 9 mg/dL (7.0-18.7); Bilirubin, Total 0.4 mg/dL (0.2-1.2); Calc. Creatinine Clearance 0 mL/min (70-130); Calcium 9.6 mg/dL (7.8-10.44); Carbon Dioxide 23 mmol/L (22-29); Chloride 104 mmol/L (98-107); Estimated GFR 92; Globulin 3.1 g/dL (2.4-3.5); Glucose 93 mg/dL (70-105); Potassium 4.1 mmol/L (3.5-5.1); Protein, Total 7.2 g/dL (6.0-8.3); Prothrombin Time 13.6 sec (12.0-14.7); Sodium 136 mmol/L (136-145)
[2022-05-08 18:49] LABS: PTT 37.5 sec (22.9-36.1)
[2022-05-08 18:50] LABS: D-Dimer Test 0.27 *mcg/mL (0.27-0.43)
[2022-05-08] MEDS ORDERED: Ondansetron PF 4 MG/2 ML Vial ONE (19:01)
== END 2022-05-08 19:52 | disposition home or self-care (01) ==
LOC: ERS 15:44
DX: R19.09 Other intra-abdominal and pelvic swelling, mass and lump (principal); D72.829 Elevated white blood cell count, unspecified; I25.10 Atherosclerotic heart disease of native coronary artery without angina pectoris; I50.9 Heart failure, unspecified; Z79.899 Other long term (current) drug therapy
CPT/HCPCS: 80053; 84703; 85025; 85379; 85610; 85730; 96374; 96375; 96376; J2270; J2405

== ENCOUNTER 2022-05-18 06:15 | Emergency (ER) | payer MEDICAID ==
[2022-05-18] MEDS ORDERED: Ondansetron PF 4 MG/2 ML Vial ONE (08:01)
[2022-05-18] MEDS ORDERED: Morphine 4 MG/ML VIAL ONE ×2 (08:01→10:28)
[2022-05-18 08:17] LABS: Bacteria/HPF None Seen HPF (None Seen); Bilirubin Negative (Negative); Blood, Urine Negative (Negative); Clarity Clear (Clear); Glucose, Urine (Dipstick) Normal (Negative); Ketone, Urine Negative (Negative); Leukocyte 25 Leu/uL (Negative); Nitrite Negative (Negative); Protein, Urine (Dipstick) Negative (Neg-Trace); RBC/HPF 0-3 HPF (0-3); Specific Gravity, Urine 1.026 (1.002-1.036); Squamous Epithelial 0-3 HPF (0-3); Urobilinogen Normal mg/dL (Less than 2); WBC/HPF 0-3 HPF (0-3); pH, Urine 5.5 (5.0-9.0)
[2022-05-18 08:23] LABS: #Basophils 0.1 thou/uL (0.0-0.2); #Eosinphils 1.7 thou/uL (0.0-0.7); #Lymphocytes 4.3 thou/uL (1.20-3.40); #Monocytes 1.4 thou/uL (0.11-0.59); #Neutrophils 8.6 thou/uL (1.40-6.50); %Basophils 0.8 % (0.0-1.0); %Eosinophils 10.7 % (0.0-10.0); %Lymphocytes 26.6 % (21.0-51.0); %Monocytes 8.7 % (0.0-10.0); %Neutrophils 53.3 % (42.0-75.0); Hemoglobin 13.8 g/dL (12.0-16.0); Mean Corpuscular HGB CONC 31.7 g/dL (32.0-36.0); Mean Corpuscular Hemoglobin 26.1 pg (27.0-31.0); Mean Corpuscular Volume 82.2 fl (78.0-98.0); Platelet Count 375 10x3/uL (130-400); Red Blood Cell (RBC) Count 5.31 mill/uL (4.20-5.40); White Blood Cell (WBC) Count 16.2 10x3/uL (4.8-10.8)
[2022-05-18 08:45] LABS: ALT (SGPT) 20 U/L (8-55); AST (SGOT) 18 U/L (5-34); Albumin 4.2 g/dL (3.5-5.0); Alkaline Phosphatase 63 U/L (40-110); Anion Gap 16 mmol/L (10-20); BUN (Urea Nitrogen) 14 mg/dL (7.0-18.7); Bilirubin, Total 0.3 mg/dL (0.2-1.2); Calc. Creatinine Clearance 0 mL/min (70-130); Calcium 10.2 mg/dL (7.8-10.44); Carbon Dioxide 21 mmol/L (22-29); Chloride 103 mmol/L (98-107); Estimated GFR 89; Globulin 3.5 g/dL (2.4-3.5); Glucose 116 mg/dL (70-105); Potassium 4.2 mmol/L (3.5-5.1); Protein, Total 7.7 g/dL (6.0-8.3); Sodium 136 mmol/L (136-145)
== END 2022-05-18 10:31 | disposition home or self-care (01) ==
LOC: ERS 06:15
DX: M79.651 Pain in right thigh (principal); I25.10 Atherosclerotic heart disease of native coronary artery without angina pectoris; I25.2 Old myocardial infarction; I50.9 Heart failure, unspecified; M79.7 Fibromyalgia; M32.9 Systemic lupus erythematosus, unspecified; Z86.718 Personal history of other venous thrombosis and embolism; Z86.711 Personal history of pulmonary embolism
CPT/HCPCS: 36415; 80053; 81003; 81015; 85025; 86140; 93005; 96361; 96374; 96375; 96376; J2270; J2405

== ENCOUNTER 2022-05-21 14:20 | Emergency (ER) | payer MEDICAID ==
[2022-05-21] MEDS ORDERED: Morphine 4 MG/ML VIAL ONE ×2 (15:37→17:21)
[2022-05-21 15:44] LABS: #Lymphocytes 3.3 thou/uL (1.20-3.40); #Monocytes 1.2 thou/uL (0.11-0.59); #Neutrophils 7.3 thou/uL (1.40-6.50); %Basophils 0.3 % (0.0-1.0); %Eosinophils 7.7 % (0.0-10.0); %Lymphocytes 25.5 % (21.0-51.0); %Monocytes 9.7 % (0.0-10.0); %Neutrophils 56.8 % (42.0-75.0); Hemoglobin 13.5 g/dL (12.0-16.0); Mean Corpuscular HGB CONC 31.8 g/dL (32.0-36.0); Mean Corpuscular Hemoglobin 26.3 pg (27.0-31.0); Mean Corpuscular Volume 82.5 fl (78.0-98.0); Mean Platelet Volume 7.7 fL (7.4-10.4); Platelet Count 436 10x3/uL (130-400); RBC Distribution Width 14.9 % (11.5-14.5); Red Blood Cell (RBC) Count 5.15 mill/uL (4.20-5.40); White Blood Cell (WBC) Count 12.8 10x3/uL (4.8-10.8)
[2022-05-21 16:13] LABS: ALT (SGPT) 26 U/L (8-55); AST (SGOT) 21 U/L (5-34); Albumin 4.2 g/dL (3.5-5.0); Alkaline Phosphatase 62 U/L (40-110); Anion Gap 17 mmol/L (10-20); BUN (Urea Nitrogen) 11 mg/dL (7.0-18.7); Bilirubin, Total 0.3 mg/dL (0.2-1.2); Calc. Creatinine Clearance 0 mL/min (70-130); Calcium 9.9 mg/dL (7.8-10.44); Carbon Dioxide 19 mmol/L (22-29); Chloride 106 mmol/L (98-107); Estimated GFR 93; Globulin 3.1 g/dL (2.4-3.5); Glucose 97 mg/dL (70-105); Potassium 4.5 mmol/L (3.5-5.1); Protein, Total 7.3 g/dL (6.0-8.3); Sodium 137 mmol/L (136-145)
== END 2022-05-21 17:30 | disposition home or self-care (01) ==
LOC: ERS 14:20
DX: R10.31 Right lower quadrant pain (principal); I25.10 Atherosclerotic heart disease of native coronary artery without angina pectoris; I25.2 Old myocardial infarction; I50.9 Heart failure, unspecified; M79.7 Fibromyalgia; M32.9 Systemic lupus erythematosus, unspecified; Z86.711 Personal history of pulmonary embolism; Z86.718 Personal history of other venous thrombosis and embolism; Z79.899 Other long term (current) drug therapy
CPT/HCPCS: 36415; 80053; 85025; 86140; 96372; J2270

== ENCOUNTER 2022-06-12 20:32 | Emergency (ER) | payer MEDICAID ==
[2022-06-12 22:20] LABS: #Basophils 0.1 thou/uL (0.0-0.2); #Eosinphils 0.8 thou/uL (0.0-0.7); #Lymphocytes 3.6 thou/uL (1.20-3.40); #Monocytes 1.1 thou/uL (0.11-0.59); #Neutrophils 9.3 thou/uL (1.40-6.50); %Basophils 0.3 % (0.0-1.0); %Eosinophils 5.5 % (0.0-10.0); %Lymphocytes 24.2 % (21.0-51.0); %Monocytes 7.7 % (0.0-10.0); %Neutrophils 62.3 % (42.0-75.0); Hemoglobin 13.5 g/dL (12.0-16.0); Mean Corpuscular HGB CONC 32.3 g/dL (32.0-36.0); Mean Corpuscular Hemoglobin 26.5 pg (27.0-31.0); Mean Corpuscular Volume 82.1 fl (78.0-98.0); Mean Platelet Volume 8.4 fL (7.4-10.4); Platelet Count 400 10x3/uL (130-400); RBC Distribution Width 14.4 % (11.5-14.5); Red Blood Cell (RBC) Count 5.08 mill/uL (4.20-5.40); White Blood Cell (WBC) Count 14.9 10x3/uL (4.8-10.8)
[2022-06-12] MEDS ORDERED: Dicyclomine 20 MG/2 ML VIAL ONE (22:40)
[2022-06-12] MEDS ORDERED: Ondansetron PF 4 MG/2 ML Vial ONE (22:40)
[2022-06-12 22:41] LABS: ALT (SGPT) 23 U/L (8-55); AST (SGOT) 18 U/L (5-34); Albumin 4.3 g/dL (3.5-5.0); Alkaline Phosphatase 60 U/L (40-110); Anion Gap 15 mmol/L (10-20); BUN (Urea Nitrogen) 11 mg/dL (7.0-18.7); Bilirubin, Total 0.3 mg/dL (0.2-1.2); Calc. Creatinine Clearance 0 mL/min (70-130); Calcium 10.6 mg/dL (7.8-10.44); Carbon Dioxide 23 mmol/L (22-29); Chloride 105 mmol/L (98-107); Estimated GFR 81; Globulin 3.4 g/dL (2.4-3.5); Glucose 92 mg/dL (70-105); Potassium 3.8 mmol/L (3.5-5.1); Protein, Total 7.7 g/dL (6.0-8.3); Sodium 139 mmol/L (136-145)
[2022-06-12 22:46] LABS: BHCG - Serum Negative (NEGATIVE); Pregs Control Background? CLEAR/WHITE (CLR/WHITE); Pregs Control Bar Appear? YES (CONTROL BAR)
[2022-06-12 23:57] LABS: Bilirubin Negative (Negative); Blood, Urine Trace (Negative); Clarity Turbid (Clear); Glucose, Urine (Dipstick) Normal (Negative); Ketone, Urine Negative (Negative); Leukocyte 500 Leu/uL (Negative); Nitrite Negative (Negative); Protein, Urine (Dipstick) Negative (Neg-Trace); Specific Gravity, Urine 1.021 (1.002-1.036); Urobilinogen Normal mg/dL (Less than 2); WBC/HPF Greater than 50 HPF (0-3)
[2022-06-13 00:02] LABS: Bacteria/HPF 1+ HPF (None Seen)
[2022-06-13] MEDS ORDERED: Ibuprofen 200 MG TAB ONE (00:21)
== END 2022-06-13 01:45 | disposition home or self-care (01) ==
LOC: ERS 20:32
DX: N39.0 Urinary tract infection, site not specified (principal); R10.31 Right lower quadrant pain; D72.829 Elevated white blood cell count, unspecified; I25.10 Atherosclerotic heart disease of native coronary artery without angina pectoris
CPT/HCPCS: 36415; 80053; 81003; 81015; 84703; 85025; 87086; 96372; 96374; J2405

== ENCOUNTER 2022-06-22 16:02 | Emergency (ER) | payer MEDICAID ==
[~2022-06-22 16:02] MED LIST changes: -Iopamidol-370 76% 500 ML 1 ML ONE; +Iopamidol-370 76% 500 ML MDV (1 ML CHARGE) ONE
[2022-06-22] MEDS ORDERED: Morphine 4 MG/ML VIAL ONE ×3 (16:22→23:17)
[2022-06-22 17:11] LABS: #Basophils 0.1 thou/uL (0.0-0.2); #Eosinphils 0.9 thou/uL (0.0-0.7); #Neutrophils 9.6 thou/uL (1.40-6.50); %Basophils 0.8 % (0.0-1.0); %Eosinophils 6.2 % (0.0-10.0); %Lymphocytes 20.2 % (21.0-51.0); %Monocytes 7.1 % (0.0-10.0); Hemoglobin 12.8 g/dL (12.0-16.0); Mean Corpuscular HGB CONC 31.4 g/dL (32.0-36.0); Mean Corpuscular Volume 82.6 fl (78.0-98.0); Mean Platelet Volume 9.4 fL (7.4-10.4); Platelet Count 483 10x3/uL (130-400); RBC Distribution Width 14.9 % (11.5-14.5); Red Blood Cell (RBC) Count 4.93 mill/uL (4.20-5.40); White Blood Cell (WBC) Count 14.7 10x3/uL (4.8-10.8)
[2022-06-22 17:33] LABS: Anion Gap 14 mmol/L (10-20); BUN (Urea Nitrogen) 12 mg/dL (7.0-18.7); Calc. Creatinine Clearance 0 mL/min (70-130); Carbon Dioxide 22 mmol/L (22-29); Chloride 103 mmol/L (98-107); Potassium 3.8 mmol/L (3.5-5.1); Sodium 135 mmol/L (136-145)
[2022-06-22 17:34] LABS: ALT (SGPT) 18 U/L (8-55); AST (SGOT) 17 U/L (5-34); Alkaline Phosphatase 57 U/L (40-110); Bilirubin, Total 0.2 mg/dL (0.2-1.2); Calcium 9.2 mg/dL (7.8-10.44); Estimated GFR 80; Glucose 138 mg/dL (70-105); Lipase 13 U/L (8-78)
[2022-06-22] MEDS ORDERED: methylPREDNISolone Sod Succ 40 MG VIAL ONE (17:54)
[2022-06-22] MEDS ORDERED: Famotidine/PF 20 mg/2ml Vial ONE (17:54)
[2022-06-22] MEDS ORDERED: diphenhydrAMINE 50 MG/ML VIAL ONE (17:54)
[2022-06-22 19:28] LABS: Bilirubin Negative (Negative); Blood, Urine Negative (Negative); Clarity Clear (Clear); Glucose, Urine (Dipstick) 200 mg/dL (Negative); Ketone, Urine Trace mg/dL (Negative); Leukocyte 25 Leu/uL (Negative); Nitrite Negative (Negative); Protein, Urine (Dipstick) 20 mg/dL (Neg-Trace); Specific Gravity, Urine 1.029 (1.002-1.036); Squamous Epithelial 0-3 HPF (0-3)
[2022-06-22 19:30] LABS: Pregnancy Test - Urine (BHCG) Negative (Negative); Pregu Control Background? CLEAR/WHITE (CLR/WHITE); Pregu Control Bar Appear? YES (CONTROL BAR); Specific Gravity 1.029 (1.002-1.036)
[2022-06-22 19:46] LABS: Bacteria/HPF 1+ HPF (None Seen)
[2022-06-22] MEDS ORDERED: Ondansetron PF 4 MG/2 ML Vial ONE (23:17)
== END 2022-06-22 23:12 | disposition home or self-care (01) ==
LOC: ERS 16:02
DX: R10.819 Abdominal tenderness, unspecified site (principal); D72.829 Elevated white blood cell count, unspecified; I25.10 Atherosclerotic heart disease of native coronary artery without angina pectoris; I50.9 Heart failure, unspecified
CPT/HCPCS: 71045; 74177; 80053; 81003; 81015; 81025; 83690; 83880; 84484; 85025; 87077; 87086; 93005; 96374; 96375; 96376; J1200; J2270; J2405; J2920; Q9967; S0028

== ENCOUNTER 2022-09-14 22:07 | Emergency (ER) | payer MEDICAID ==
[2022-09-14 23:08] LABS: Bilirubin Negative (Negative); Blood, Urine 3+ (Negative); CAUTI Indications for Culture Pelvic or flank pain; Clarity Extra Turbid (Clear); Glucose, Urine (Dipstick) Normal (Negative); Ketone, Urine Trace mg/dL (Negative); Leukocyte 25 Leu/uL (Negative); Nitrite Negative (Negative); Protein, Urine (Dipstick) 30 mg/dL (Neg-Trace); RBC/HPF Greater than 50 HPF (0-3); Specific Gravity, Urine 1.028 (1.002-1.036); Squamous Epithelial 0-3 HPF (0-3); Urobilinogen Normal mg/dL (Less than 2); WBC/HPF 0-3 HPF (0-3)
[2022-09-14 23:21] LABS: Bacteria/HPF Rare-Few HPF (None Seen); Urine Culture Reflex No No
[2022-09-14] MEDS ORDERED: diphenhydrAMINE 50 MG/ML VIAL ONE (23:41)
[2022-09-14] MEDS ORDERED: methylPREDNISolone Sod Succ 40 MG VIAL ONE (23:41)
[2022-09-14] MEDS ORDERED: Promethazine HCl 25 MG/ML VIAL ONE (23:42)
[2022-09-14] MEDS ORDERED: Famotidine/PF 20 mg/2ml Vial ONE (23:43)
[2022-09-15] MEDS ORDERED: fentaNYL 50 mcg/mL 1 mL Vial ONE ×3 (00:25→05:08)
[2022-09-15 00:30] LABS: #Basophils 0.2 thou/uL (0.0-0.2); #Eosinphils 0.8 thou/uL (0.0-0.7); #Monocytes 1.4 thou/uL (0.11-0.59); #Neutrophils 6.7 thou/uL (1.40-6.50); %Basophils 1.4 % (0.0-1.0); %Eosinophils 6.3 % (0.0-10.0); %Lymphocytes 31.6 % (21.0-51.0); %Monocytes 10.3 % (0.0-10.0); %Neutrophils 49.9 % (42.0-75.0); Hematocrit 36.4 % (36.0-47.0); Mean Platelet Volume 9.5 fL (7.4-10.4); Platelet Count 406 10x3/uL (130-400); RBC Distribution Width 14.8 % (11.5-14.5); Red Blood Cell (RBC) Count 4.61 mill/uL (4.20-5.40); White Blood Cell (WBC) Count 13.3 10x3/uL (4.8-10.8)
[2022-09-15 00:55] LABS: BHCG - Serum Negative (NEGATIVE); Pregs Control Background? CLEAR/WHITE (CLR/WHITE); Pregs Control Bar Appear? YES (CONTROL BAR)
[2022-09-15 00:58] LABS: ALT (SGPT) 20 U/L (8-55); AST (SGOT) 23 U/L (5-34); Albumin 3.9 g/dL (3.5-5.0); Alkaline Phosphatase 64 U/L (40-110); Anion Gap 15 mmol/L (10-20); BUN (Urea Nitrogen) 13 mg/dL (7.0-18.7); Bilirubin, Total 0.3 mg/dL (0.2-1.2); Calc. Creatinine Clearance 0 mL/min (70-130); Calcium 10.1 mg/dL (7.8-10.44); Carbon Dioxide 19 mmol/L (22-29); Chloride 107 mmol/L (98-107); Estimated GFR 73; Globulin 3.4 g/dL (2.4-3.5); Glucose 100 mg/dL (70-105); Lipase 31 U/L (8-78); Protein, Total 7.3 g/dL (6.0-8.3); Sodium 137 mmol/L (136-145)
[2022-09-15] MEDS ORDERED: Iopamidol-370 76% 500 ML MDV (1 ML CHARGE) ONE (10:38)
== END 2022-09-15 05:17 | disposition home or self-care (01) ==
LOC: ERS 22:07
DX: K80.50 Calculus of bile duct without cholangitis or cholecystitis without obstruction (principal); I50.9 Heart failure, unspecified
CPT/HCPCS: 71275; 76705; 80053; 81001; 83690; 84703; 85025; 93005; 96365; 96366; 96375; 96376; J1200; J2550; J2920; J3010; Q9967; S0028

== ENCOUNTER 2022-10-11 13:36 | Outpatient (CLI) | payer MEDICAID | END 2022-10-11 13:37 | disposition home or self-care (01) | LOC: BICCT 13:36 | PROVIDERS: ATTEND Anesthesiology | DX: M47.816 Spondylosis without myelopathy or radiculopathy, lumbar region (principal); M51.35 Other intervertebral disc degeneration, thoracolumbar region; M51.37 Other intervertebral disc degeneration, lumbosacral region | CPT/HCPCS: 72131 ==

== ENCOUNTER 2022-10-12 18:17 | Inpatient (IN) | payer MEDICAID ==
[2022-10-12 20:00] LABS: Bacteria/HPF 1+ HPF (None Seen); Bilirubin Negative (Negative); Blood, Urine Negative (Negative); CAUTI Indications for Culture < 2yrs of age; Calcium Oxalate Crystals Rare HPF (None Seen); Clarity Clear (Clear); Glucose, Urine (Dipstick) Normal (Negative); Ketone, Urine Negative (Negative); Leukocyte 75 Leu/uL (Negative); Mucous/LPF Rare LPF (<2+); Nitrite Negative (Negative); Pregnancy Test - Urine (BHCG) Negative (Negative); Pregu Control Background? CLEAR/WHITE (CLR/WHITE); Pregu Control Bar Appear? YES (CONTROL BAR); Protein, Urine (Dipstick) 30 mg/dL (Neg-Trace); RBC/HPF 0-3 HPF (0-3); Urobilinogen Normal mg/dL (Less than 2); pH, Urine 5.5 (5.0-9.0)
[2022-10-12 20:02] LABS: Urine Culture Reflex Yes Yes
[2022-10-12 20:26] LABS: #Basophils 0.1 thou/uL (0.0-0.2); #Eosinphils 0.4 thou/uL (0.0-0.7); #Monocytes 1.5 thou/uL (0.11-0.59); #Neutrophils 9.1 thou/uL (1.40-6.50); %Basophils 0.8 % (0.0-1.0); %Eosinophils 2.7 % (0.0-10.0); %Lymphocytes 27.5 % (21.0-51.0); %Monocytes 9.7 % (0.0-10.0); %Neutrophils 58.9 % (42.0-75.0); Hematocrit 38.3 % (36.0-47.0); Hemoglobin 12.3 g/dL (12.0-16.0); Mean Corpuscular HGB CONC 32.1 g/dL (32.0-36.0); Mean Corpuscular Hemoglobin 25.4 pg (27.0-31.0); Mean Platelet Volume 9.7 fL (7.4-10.4); Platelet Count 341 10x3/uL (130-400); RBC Distribution Width 15.2 % (11.5-14.5); Red Blood Cell (RBC) Count 4.85 mill/uL (4.20-5.40); White Blood Cell (WBC) Count 15.4 10x3/uL (4.8-10.8)
[2022-10-12 20:53] LABS: Troponin I 0.011 ng/mL (< 0.028)
[2022-10-12 21:20] LABS: ALT (SGPT) 27 U/L (8-55); AST (SGOT) 25 U/L (5-34); Alkaline Phosphatase 57 U/L (40-110); Anion Gap 17 mmol/L (10-20); BUN (Urea Nitrogen) 11 mg/dL (7.0-18.7); Bilirubin, Total 0.2 mg/dL (0.2-1.2); Calc. Creatinine Clearance 0 mL/min (70-130); Calcium 9.7 mg/dL (7.8-10.44); Carbon Dioxide 17 mmol/L (22-29); Chloride 106 mmol/L (98-107); Estimated GFR 96; Globulin 3.3 g/dL (2.4-3.5); Glucose 97 mg/dL (70-105); Lipase 20 U/L (8-78); Magnesium 1.7 mg/dL (1.6-2.6); Potassium 4.1 mmol/L (3.5-5.1); Protein, Total 7.3 g/dL (6.0-8.3); Sodium 136 mmol/L (136-145)
[2022-10-12] MEDS ORDERED: Ondansetron PF 4 MG/2 ML Vial ONE (21:31)
[2022-10-12] MEDS ORDERED: Acetaminophen 500 MG TAB ONE (21:31)
[2022-10-12] MEDS ORDERED: LevoFLOXacin 750 mg/D5W 750 MG in Premix Bag 1 BAG IVPB SCH (22:45)
[2022-10-12] MEDS ORDERED: Morphine 4 MG/ML VIAL ONE (22:53)
[2022-10-12 23:51] LABS: Troponin I Less than 0.010 ng/mL (< 0.028)
[2022-10-12] MEDS ORDERED: LevoFLOXacin 750 mg/D5W 150 ml Premix Bag ONE (23:55)
[2022-10-13] MEDS ORDERED: Promethazine HCl 25 MG/ML VIAL ONE (00:03)
[2022-10-13] MEDS ORDERED: Morphine 4 MG/ML VIAL SLOW IVP SCH (01:00)
[2022-10-13 01:05] VITALS: BMI 56.5
[2022-10-13] MEDS: Sodium Chloride 0.9% 1,000 ML IV SCH ×3 (01:44→23:48)
[2022-10-13] MEDS: HYDROcodone/Acetaminophen 10/325 mg Tablet PO SCH ×4 (01:45→18:36)
[2022-10-13 02:04] LABS: Troponin I Less than 0.010 ng/mL (< 0.028)
[2022-10-13] MEDS: Morphine 4 MG/ML VIAL SLOW IVP PRN ×3 (06:13→20:33)
[2022-10-13] MEDS: metroNIDAZOLE 500 MG in Premix Bag 1 BAG IVPB SCH ×3 (06:14→23:47)
[2022-10-13 06:21] LABS: #Basophils 0.1 thou/uL (0.0-0.2); #Eosinphils 0.5 thou/uL (0.0-0.7); #Monocytes 1.2 thou/uL (0.11-0.59); #Neutrophils 6.7 thou/uL (1.40-6.50); %Basophils 0.8 % (0.0-1.0); %Eosinophils 4.4 % (0.0-10.0); %Lymphocytes 29.1 % (21.0-51.0); %Monocytes 10.1 % (0.0-10.0); %Neutrophils 55.2 % (42.0-75.0); Hematocrit 37.9 % (36.0-47.0); Hemoglobin 11.8 g/dL (12.0-16.0); Mean Corpuscular HGB CONC 31.1 g/dL (32.0-36.0); Mean Corpuscular Hemoglobin 25.5 pg (27.0-31.0); Mean Platelet Volume 10.5 fL (7.4-10.4); Platelet Count 255 10x3/uL (130-400); RBC Distribution Width 15.5 % (11.5-14.5); Red Blood Cell (RBC) Count 4.62 mill/uL (4.20-5.40); White Blood Cell (WBC) Count 12.1 10x3/uL (4.8-10.8)
[2022-10-13 07:00] LABS: ALT (SGPT) 24 U/L (8-55); AST (SGOT) 31 U/L (5-34); Albumin 3.4 g/dL (3.5-5.0); Alkaline Phosphatase 49 U/L (40-110); Anion Gap 13 mmol/L (10-20); BUN (Urea Nitrogen) 9 mg/dL (7.0-18.7); Bilirubin, Total 0.4 mg/dL (0.2-1.2); Calc. Creatinine Clearance 225 mL/min (70-130); Calcium 8.8 mg/dL (7.8-10.44); Carbon Dioxide 20 mmol/L (22-29); Chloride 107 mmol/L (98-107); Estimated GFR 105; Globulin 3.2 g/dL (2.4-3.5); Glucose 85 mg/dL (70-105); Potassium 4.7 mmol/L (3.5-5.1); Protein, Total 6.6 g/dL (6.0-8.3); Sodium 135 mmol/L (136-145)
[2022-10-13] MEDS ORDERED: hydrALAZINE 20 MG/ML VIAL SLOW IVP PRN (08:14)
[2022-10-13] MEDS: Bumetanide 1 MG TAB PO SCH (11:07)
[2022-10-13] MEDS: FLUoxetine HCl 20 MG CAP PO SCH (11:07)
[2022-10-13] MEDS: Aspirin Chewable 81 MG TAB PO SCH (11:07)
[2022-10-13] MEDS: Gabapentin 300 MG CAP PO SCH ×2 (11:07→15:09)
[2022-10-13] MEDS: Empagliflozin 10 MG TAB PO SCH (11:07)
[2022-10-13] MEDS: Sacubitril 49 MG/Valsartan 51 MG TABLET PO SCH (11:07)
[2022-10-13] MEDS: Carvedilol 25 MG TAB PO SCH (11:07)
[2022-10-13] MEDS: Spironolactone 25 MG TAB PO SCH (11:08)
[2022-10-13 12:49] LABS: Amphetamine Not Detected (NotDetected); Barbiturates Screen Not Detected (NotDetected); Benzodiazepine Screen Detected (NotDetected); Cocaine Metabolite Screen Not Detected (NotDetected); Methadone Not Detected (NotDetected); Methamphetamine Not Detected (NotDetected); Opiate Screen Detected (NotDetected); Oxycodone Screen Not Detected (NotDetected); Phencyclidine (PCP) Not Detected (NotDetected); THC/Cannabinoid Screen Not Detected (NotDetected); Tricyclic Screen Detected (NotDetected)
[2022-10-13] MEDS: Ondansetron PF 4 MG/2 ML Vial IVP PRN (15:13)
[2022-10-13 17:10] LABS: Complement-C4 17.7 mg/dL (15-57)
[2022-10-13] MEDS: LevoFLOXacin 750 mg/D5W 750 MG in Premix Bag 1 BAG IVPB SCH (23:48)
[2022-10-13] MEDS: methylPREDNISolone Sod Succ 40 MG VIAL IVP SCH (23:49)
[2022-10-14] MEDS: Carvedilol 25 MG TAB PO SCH ×3 (00:34→22:45)
[2022-10-14] MEDS: Atorvastatin Calcium 40 MG TAB PO SCH ×2 (00:34→22:45)
[2022-10-14] MEDS: Sacubitril 49 MG/Valsartan 51 MG TABLET PO SCH ×3 (00:35→22:45)
[2022-10-14] MEDS: HYDROcodone/Acetaminophen 10/325 mg Tablet PO SCH ×4 (00:35→17:22)
[2022-10-14] MEDS: Prazosin HCl 1 MG CAP PO SCH ×2 (00:35→22:45)
[2022-10-14] MEDS: Gabapentin 300 MG CAP PO SCH ×4 (00:35→22:45)
[2022-10-14] MEDS: Morphine 4 MG/ML VIAL SLOW IVP PRN ×4 (03:06→19:55)
[2022-10-14] MEDS: Ondansetron PF 4 MG/2 ML Vial IVP PRN ×3 (03:06→22:43)
[2022-10-14] MEDS: metroNIDAZOLE 500 MG in Premix Bag 1 BAG IVPB SCH ×3 (05:46→22:45)
[2022-10-14] MEDS: methylPREDNISolone Sod Succ 40 MG VIAL IVP SCH (08:42)
[2022-10-14 10:27] LABS: #Monocytes 0.1 thou/uL (0.11-0.59); #Neutrophils 7.3 thou/uL (1.40-6.50); %Basophils 0.4 % (0.0-1.0); %Neutrophils 81.9 % (42.0-75.0); Hematocrit 41.4 % (36.0-47.0); Hemoglobin 12.8 g/dL (12.0-16.0); Mean Corpuscular HGB CONC 30.9 g/dL (32.0-36.0); Mean Corpuscular Hemoglobin 25.3 pg (27.0-31.0); Mean Platelet Volume 9.8 fL (7.4-10.4); Platelet Count 373 10x3/uL (130-400); RBC Distribution Width 14.8 % (11.5-14.5); Red Blood Cell (RBC) Count 5.05 mill/uL (4.20-5.40); White Blood Cell (WBC) Count 8.9 10x3/uL (4.8-10.8)
[2022-10-14 10:47] LABS: Anion Gap 14 mmol/L (10-20); BUN (Urea Nitrogen) 8 mg/dL (7.0-18.7); Calc. Creatinine Clearance 216 mL/min (70-130); Calcium 9.5 mg/dL (7.8-10.44); Carbon Dioxide 19 mmol/L (22-29); Chloride 104 mmol/L (98-107); Estimated GFR 100; Glucose 114 mg/dL (70-105); Potassium 4.2 mmol/L (3.5-5.1); Sodium 133 mmol/L (136-145)
[2022-10-14] MEDS ORDERED: LevoFLOXacin 500 mg/D5W 500 MG in Premix Bag 1 BAG IVPB SCH (12:00)
[2022-10-14] MEDS: Aspirin Chewable 81 MG TAB PO SCH (12:38)
[2022-10-14] MEDS: Bumetanide 1 MG TAB PO SCH (12:38)
[2022-10-14] MEDS: FLUoxetine HCl 20 MG CAP PO SCH (12:39)
[2022-10-14] MEDS: Spironolactone 25 MG TAB PO SCH (12:39)
[2022-10-14] MEDS: Empagliflozin 10 MG TAB PO SCH (12:39)
[2022-10-14] MEDS: Sodium Chloride 0.9% 1,000 ML IV SCH ×2 (15:10→17:19)
[2022-10-14 19:10] LABS: dsDNA IgG Antibody 2.3 IU/mL (<10 Negative)
[2022-10-14] MEDS: LevoFLOXacin 750 mg/D5W 750 MG in Premix Bag 1 BAG IVPB SCH (22:54)
[2022-10-15] MEDS: HYDROcodone/Acetaminophen 10/325 mg Tablet PO SCH ×4 (00:03→23:32)
[2022-10-15] MEDS: Morphine 4 MG/ML VIAL SLOW IVP PRN ×3 (00:25→10:49)
[2022-10-15 06:00] LABS: #Basophils 0.1 thou/uL (0.0-0.2); #Monocytes 1.4 thou/uL (0.11-0.59); #Neutrophils 10.6 thou/uL (1.40-6.50); %Basophils 0.3 % (0.0-1.0); %Eosinophils 0.1 % (0.0-10.0); %Lymphocytes 22.6 % (21.0-51.0); %Monocytes 8.8 % (0.0-10.0); %Neutrophils 67.9 % (42.0-75.0); Hematocrit 34.9 % (36.0-47.0); Mean Corpuscular HGB CONC 31.5 g/dL (32.0-36.0); Mean Corpuscular Hemoglobin 25.5 pg (27.0-31.0); Mean Corpuscular Volume 80.8 fl (78.0-98.0); Mean Platelet Volume 10.4 fL (7.4-10.4); Platelet Count 316 10x3/uL (130-400); RBC Distribution Width 15.1 % (11.5-14.5); Red Blood Cell (RBC) Count 4.32 mill/uL (4.20-5.40); White Blood Cell (WBC) Count 15.7 10x3/uL (4.8-10.8)
[2022-10-15 06:24] LABS: ALT (SGPT) 22 U/L (8-55); AST (SGOT) 20 U/L (5-34); Albumin 3.7 g/dL (3.5-5.0); Alkaline Phosphatase 43 U/L (40-110); Anion Gap 12 mmol/L (10-20); BUN (Urea Nitrogen) 9 mg/dL (7.0-18.7); Bilirubin, Total 0.4 mg/dL (0.2-1.2); Calc. Creatinine Clearance 228 mL/min (70-130); Carbon Dioxide 20 mmol/L (22-29); Chloride 105 mmol/L (98-107); Estimated GFR 107; Glucose 95 mg/dL (70-105); Potassium 3.9 mmol/L (3.5-5.1); Protein, Total 6.7 g/dL (6.0-8.3); Sodium 133 mmol/L (136-145)
[2022-10-15] MEDS: metroNIDAZOLE 500 MG in Premix Bag 1 BAG IVPB SCH ×3 (06:33→20:58)
[2022-10-15] MEDS: Sodium Chloride 0.9% 1,000 ML IV SCH ×2 (08:08→10:46)
[2022-10-15] MEDS: Bumetanide 1 MG TAB PO SCH (10:40)
[2022-10-15] MEDS: Aspirin Chewable 81 MG TAB PO SCH (10:40)
[2022-10-15] MEDS: Carvedilol 25 MG TAB PO SCH ×2 (10:41→23:32)
[2022-10-15] MEDS: Empagliflozin 10 MG TAB PO SCH (10:41)
[2022-10-15] MEDS: Gabapentin 300 MG CAP PO SCH ×2 (10:41→23:33)
[2022-10-15] MEDS: Sacubitril 49 MG/Valsartan 51 MG TABLET PO SCH ×2 (10:41→23:43)
[2022-10-15] MEDS: FLUoxetine HCl 20 MG CAP PO SCH (10:41)
[2022-10-15] MEDS: Spironolactone 25 MG TAB PO SCH (10:42)
[2022-10-15] MEDS ORDERED: Bupivacaine PF 0.5% 30 ML VIAL ONE (13:23)
[2022-10-15] MEDS ORDERED: EPINEPHrine 1 MG/ML AMP ONE (13:23)
[2022-10-15] MEDS ORDERED: Fentanyl 250 MCG/5 ML VIAL ONE (13:23)
[2022-10-15] MEDS ORDERED: SUGAMMADEX SODIUM 200 MG/2 ML VIAL ONE (13:24)
[2022-10-15] MEDS ORDERED: Ondansetron PF 4 MG/2 ML Vial ONE (13:31)
[2022-10-15] MEDS ORDERED: Dexamethasone 20 MG/5 ML VIAL ONE (13:31)
[2022-10-15] MEDS ORDERED: PROPOFOL 200 MG/20 ML VIAL ONE (13:31)
[2022-10-15] MEDS ORDERED: Lidocaine 1% PF 5 ML VIAL ONE (13:31)
[2022-10-15] MEDS ORDERED: Rocuronium Bromide 10 MG/ML (10ML VIAL) ONE (13:31)
[2022-10-15] MEDS ORDERED: LevoFLOXacin 500 mg/D5W 100 ML BAG ONE (13:32)
[2022-10-15] MEDS ORDERED: Promethazine HCl 25 MG/ML VIAL IM PRN (14:26)
[2022-10-15] MEDS ORDERED: Ondansetron HCl/PF 4 MG/2 ML Vial IVP PRN (14:26)
[2022-10-15] MEDS ORDERED: fentaNYL 50 mcg/mL 1 mL Vial ONE ×2 (14:37→14:48)
[2022-10-15] MEDS ORDERED: HYDROmorphone 0.5 MG/0.5 ML SYRINGE ONE ×3 (15:07→15:34)
[2022-10-15] MEDS ORDERED: Labetalol HCl 100 MG/20 ML VIAL ONE (15:08)
[2022-10-15] MEDS: Ondansetron PF 4 MG/2 ML Vial IVP PRN (17:52)
[2022-10-15] MEDS ORDERED: Morphine 2 MG/ML VIAL SLOW IVP SCH (20:45)
[2022-10-15] MEDS ORDERED: Promethazine HCl 12.5 MG in Sodium Chloride 0.9% 50 ML IVPB SCH (21:00)
[2022-10-15] MEDS: Prazosin HCl 1 MG CAP PO SCH (23:32)
[2022-10-15] MEDS: Atorvastatin Calcium 40 MG TAB PO SCH (23:32)
[2022-10-16] MEDS: metroNIDAZOLE 500 MG in Premix Bag 1 BAG IVPB SCH ×2 (05:02→13:37)
[2022-10-16] MEDS: Ondansetron PF 4 MG/2 ML Vial IVP PRN ×2 (05:02→13:42)
[2022-10-16] MEDS: Gabapentin 300 MG CAP PO SCH ×2 (05:02→13:38)
[2022-10-16] MEDS: HYDROcodone/Acetaminophen 10/325 mg Tablet PO SCH ×2 (05:03→13:38)
[2022-10-16 06:37] LABS: #Monocytes 0.9 thou/uL (0.11-0.59); %Basophils 0.3 % (0.0-1.0); %Monocytes 5.9 % (0.0-10.0); %Neutrophils 76.3 % (42.0-75.0); Hematocrit 38.2 % (36.0-47.0); Mean Corpuscular HGB CONC 31.4 g/dL (32.0-36.0); Mean Corpuscular Hemoglobin 25.5 pg (27.0-31.0); Mean Corpuscular Volume 81.3 fl (78.0-98.0); Mean Platelet Volume 9.7 fL (7.4-10.4); Platelet Count 307 10x3/uL (130-400); RBC Distribution Width 15.3 % (11.5-14.5); White Blood Cell (WBC) Count 15.7 10x3/uL (4.8-10.8)
[2022-10-16 06:59] LABS: Anion Gap 12 mmol/L (10-20); BUN (Urea Nitrogen) 8 mg/dL (7.0-18.7); Calc. Creatinine Clearance 240 mL/min (70-130); Carbon Dioxide 21 mmol/L (22-29); Chloride 105 mmol/L (98-107); Estimated GFR 114; Glucose 125 mg/dL (70-105); Potassium 4.2 mmol/L (3.5-5.1); Sodium 134 mmol/L (136-145)
[2022-10-16] MEDS ORDERED: Fenofibrate 48 MG TAB PO SCH (09:00)
[2022-10-16] MEDS ORDERED: FLUoxetine HCl 20 MG CAP PO SCH (09:00)
[2022-10-16] MEDS: Sacubitril 49 MG/Valsartan 51 MG TABLET PO SCH (09:38)
[2022-10-16] MEDS: Spironolactone 25 MG TAB PO SCH (09:38)
[2022-10-16] MEDS: Carvedilol 25 MG TAB PO SCH (09:39)
[2022-10-16] MEDS: Empagliflozin 10 MG TAB PO SCH (09:39)
[2022-10-16] MEDS: Aspirin Chewable 81 MG TAB PO SCH (09:39)
[2022-10-16] MEDS ORDERED: Morphine 4 MG/ML VIAL SLOW IVP SCH (09:41)
[2022-10-16] MEDS: Bumetanide 1 MG TAB PO SCH (10:24)
[2022-10-16 13:03] VITALS: BP 115/68; TEMP 97.6
[2022-10-16] MEDS ORDERED: Enoxaparin 120 MG/0.8 ML SYRINGE SC SCH (21:00)
== END 2022-10-16 15:33 | disposition home or self-care (01) | DRG 418 ==
LOC: ERS 18:17 → SUATTDRO 18:17 → SURG B 22:23 → INTOOBSV 22:23 → OBSVTOIN 10-15 08:55
PROVIDERS: ADMIT Family Medicine; ATTEND Family Medicine
PROC: 0FT44ZZ Resection of Gallbladder, Percutaneous Endoscopic Approach (ICD-10-PCS; principal; 2022-10-15)
DX: K81.0 Acute cholecystitis (principal); D68.61 Antiphospholipid syndrome; K81.1 Chronic cholecystitis; I50.9 Heart failure, unspecified; I25.2 Old myocardial infarction; M32.9 Systemic lupus erythematosus, unspecified; G43.909 Migraine, unspecified, not intractable, without status migrainosus; E78.5 Hyperlipidemia, unspecified; Z90.89 Acquired absence of other organs; Z88.1 Allergy status to other antibiotic agents; Z95.810 Presence of automatic (implantable) cardiac defibrillator; Z79.899 Other long term (current) drug therapy; Z91.040 Latex allergy status; Z91.041 Radiographic dye allergy status; Z91.013 Allergy to seafood; Z88.0 Allergy status to penicillin; Z88.5 Allergy status to narcotic agent; Z88.8 Allergy status to other drugs, medicaments and biological substances; Z79.82 Long term (current) use of aspirin
CPT/HCPCS: 36415; 36416; 71045; 76705; 78227; 80048; 80053; 80306; 81001; 81025; 83605; 83690; 83735; 84484; 85025; 85379; 85652; 86140; 86160; 86225; 87040; 87076; 87077; 87086; 87149; 87186; 88304; 93005; 94760; 96361; 96365; 96372; 96374; 96375; 96376; A9537; C1889; G0378; J0171; J1100; J1170; J1650; J1956; J2270; J2272; J2405; J2550; J2704; J2920; J3010; J7050; S0020

== ENCOUNTER 2022-10-31 22:43 | Emergency (ER) | payer MEDICAID ==
[2022-10-31 23:08] LABS: Bilirubin Negative (Negative); Blood, Urine Negative (Negative); CAUTI Indications for Culture Pelvic or flank pain; Clarity Clear (Clear); Glucose, Urine (Dipstick) Normal (Negative); Ketone, Urine Negative (Negative); Leukocyte 250 Leu/uL (Negative); Nitrite Negative (Negative); Protein, Urine (Dipstick) Negative (Neg-Trace); Specific Gravity, Urine 1.014 (1.002-1.036); Squamous Epithelial 0-3 HPF (0-3); Urobilinogen Normal mg/dL (Less than 2)
[2022-10-31 23:10] LABS: Bacteria/HPF 1+ HPF (None Seen)
[2022-10-31 23:11] LABS: Urine Culture Reflex No No
[2022-10-31] MEDS ORDERED: diphenhydrAMINE 50 MG/ML VIAL ONE (23:19)
[2022-10-31] MEDS ORDERED: methylPREDNISolone Sod Succ 40 MG VIAL ONE (23:19)
[2022-10-31] MEDS ORDERED: Famotidine/PF 20 mg/2ml Vial ONE (23:24)
[2022-10-31] MEDS ORDERED: Ondansetron PF 4 MG/2 ML Vial ONE ×2 (23:36→23:39)
[2022-10-31 23:43] LABS: Hematocrit 38.2 % (36.0-47.0); Hemoglobin 12.2 g/dL (12.0-16.0); Mean Corpuscular HGB CONC 31.9 g/dL (32.0-36.0); Mean Corpuscular Hemoglobin 25.6 pg (27.0-31.0); Mean Corpuscular Volume 80.1 fl (78.0-98.0); Mean Platelet Volume 9.8 fL (7.4-10.4); Platelet Count 395 10x3/uL (130-400); Red Blood Cell (RBC) Count 4.77 mill/uL (4.20-5.40)
[2022-10-31 23:46] LABS: Delete Auto Diff?? YES; Manual Diff?? YES
[2022-11-01 00:08] LABS: Band 7 % (5-11); CellaVision Operator ID LAB.CLH1; Eosinophils 6 % (0-10); Hypochromia SLIGHT = 6-15 cells HPF (0-5); Lymphocytes 28 % (21-51); Monocytes 4 % (0-10); Neutrophil 48 % (42-75); Platelet Adequacy Comment Platelets Normal; Reactive Lymphocytes 6 % (0-10); Total Cell Count 100
[2022-11-01 00:11] LABS: BHCG - Serum Negative (NEGATIVE); Pregs Control Background? CLEAR/WHITE (CLR/WHITE); Pregs Control Bar Appear? YES (CONTROL BAR)
[2022-11-01 00:21] LABS: ALT (SGPT) 23 U/L (8-55); AST (SGOT) 26 U/L (5-34); Albumin 3.8 g/dL (3.5-5.0); Alkaline Phosphatase 57 U/L (40-110); Anion Gap 15 mmol/L (10-20); BUN (Urea Nitrogen) 6 mg/dL (7.0-18.7); Bilirubin, Total 0.3 mg/dL (0.2-1.2); Calc. Creatinine Clearance 0 mL/min (70-130); Calcium 9.5 mg/dL (7.8-10.44); Carbon Dioxide 22 mmol/L (22-29); Chloride 103 mmol/L (98-107); Estimated GFR 107; Globulin 3.1 g/dL (2.4-3.5); Glucose 99 mg/dL (70-105); Lipase 22 U/L (8-78); Potassium 3.6 mmol/L (3.5-5.1); Protein, Total 6.9 g/dL (6.0-8.3); Sodium 136 mmol/L (136-145)
[2022-11-01 00:54] LABS: Troponin I Less than 0.010 ng/mL (< 0.028)
[2022-11-01] MEDS ORDERED: Morphine 4 MG/ML VIAL ONE ×2 (02:06→02:53)
== END 2022-11-01 03:00 | disposition home or self-care (01) ==
LOC: ERS 22:43
DX: J18.9 Pneumonia, unspecified organism (principal); R10.13 Epigastric pain; I50.9 Heart failure, unspecified; I25.2 Old myocardial infarction; Z79.899 Other long term (current) drug therapy; Z79.51 Long term (current) use of inhaled steroids; Z79.82 Long term (current) use of aspirin
CPT/HCPCS: 71275; 74177; 80053; 81001; 83690; 83880; 84484; 84703; 85025; 93005; 96374; 96375; 96376; J1200; J2270; J2405; J2920; S0028

== ENCOUNTER 2022-12-04 18:15 | Emergency (ER) | payer MEDICAID ==
[2022-12-04] MEDS ORDERED: methylPREDNISolone Sod Succ/PF 125 MG/2 ML VIAL ONE (19:13)
[2022-12-04] MEDS ORDERED: Famotidine/PF 20 mg/2ml Vial ONE (19:13)
[2022-12-04] MEDS ORDERED: diphenhydrAMINE 50 MG/ML VIAL ONE (19:13)
[2022-12-04] MEDS ORDERED: Acetaminophen 500 MG TAB ONE (19:13)
[2022-12-04] MEDS ORDERED: Ondansetron PF 4 MG/2 ML Vial ONE (19:13)
[2022-12-04 19:33] LABS: Hematocrit 39.1 % (36.0-47.0); Hemoglobin 12.3 g/dL (12.0-16.0); Mean Corpuscular HGB CONC 31.5 g/dL (32.0-36.0); Mean Corpuscular Hemoglobin 25.1 pg (27.0-31.0); Mean Corpuscular Volume 79.6 fl (78.0-98.0); Mean Platelet Volume 9.8 fL (7.4-10.4); Platelet Count 388 10x3/uL (130-400); RBC Distribution Width 14.6 % (11.5-14.5); Red Blood Cell (RBC) Count 4.91 mill/uL (4.20-5.40); White Blood Cell (WBC) Count 13.5 10x3/uL (4.8-10.8)
[2022-12-04 19:40] LABS: Delete Auto Diff?? YES; Manual Diff?? YES
[2022-12-04 19:55] LABS: Band 1 % (5-11); CellaVision Operator ID LAB.KB; Eosinophils 8 % (0-10); Hypersegmented Neutrophil SLIGHT (None Seen); Hypochromia SLIGHT = 6-15 cells HPF (0-5); Lymphocytes 16 % (21-51); Monocytes 4 % (0-10); Neutrophil 68 % (42-75); Ovalocytes SLIGHT = 2-5 cells HPF (0-1); Platelet Adequacy Comment Platelets Normal; Polychromasia SLIGHT = 2-3 cells HPF (0-2); Reactive Lymphocytes 3 % (0-10); Total Cell Count 100
[2022-12-04 19:59] LABS: ALT (SGPT) 23 U/L (8-55); AST (SGOT) 23 U/L (5-34); Albumin 4.4 g/dL (3.5-5.0); Alkaline Phosphatase 57 U/L (40-110); Anion Gap 13 mmol/L (10-20); BUN (Urea Nitrogen) 11 mg/dL (7.0-18.7); Bilirubin, Total 0.2 mg/dL (0.2-1.2); Calc. Creatinine Clearance 0 mL/min (70-130); Calcium 9.3 mg/dL (7.8-10.44); Carbon Dioxide 24 mmol/L (22-29); Chloride 101 mmol/L (98-107); Estimated GFR 94; Globulin 2.8 g/dL (2.4-3.5); Glucose 87 mg/dL (70-105); Lipase 19 U/L (8-78); Potassium 3.8 mmol/L (3.5-5.1); Protein, Total 7.2 g/dL (6.0-8.3); Sodium 134 mmol/L (136-145)
[2022-12-04 20:05] LABS: Troponin I Less than 0.010 ng/mL (< 0.028)
[2022-12-04 20:08] LABS: BHCG - Serum Negative (NEGATIVE); Pregs Control Background? CLEAR/WHITE (CLR/WHITE); Pregs Control Bar Appear? YES (CONTROL BAR)
[2022-12-04] MEDS ORDERED: fentaNYL 50 mcg/mL 1 mL Vial ONE (20:14)
== END 2022-12-04 21:46 | disposition home or self-care (01) ==
LOC: ERS 18:15
DX: R07.9 Chest pain, unspecified (principal); R06.02 Shortness of breath; I50.9 Heart failure, unspecified; Z79.899 Other long term (current) drug therapy; Z79.82 Long term (current) use of aspirin
CPT/HCPCS: 71045; 71275; 80053; 83690; 84484; 84703; 85025; 93005; 96361; 96374; 96375; J1200; J2405; J2930; J3010; S0028

== ENCOUNTER 2022-12-07 20:43 | Emergency (ER) | payer MEDICAID ==
[2022-12-07] MEDS ORDERED: Morphine 4 MG/ML VIAL ONE (23:44)
[2022-12-07] MEDS ORDERED: Promethazine 25 MG TAB ONE (23:44)
[2022-12-07 23:50] LABS: Hematocrit 39.4 % (36.0-47.0); Hemoglobin 12.5 g/dL (12.0-16.0); Mean Corpuscular HGB CONC 31.7 g/dL (32.0-36.0); Mean Corpuscular Hemoglobin 25.1 pg (27.0-31.0); Platelet Count 396 10x3/uL (130-400); RBC Distribution Width 14.8 % (11.5-14.5); Red Blood Cell (RBC) Count 4.99 mill/uL (4.20-5.40); White Blood Cell (WBC) Count 18.8 10x3/uL (4.8-10.8)
[2022-12-08 00:01] LABS: Delete Auto Diff?? YES; Manual Diff?? YES
[2022-12-08 00:15] LABS: Troponin I Less than 0.010 ng/mL (< 0.028)
[2022-12-08 00:17] LABS: ALT (SGPT) 21 U/L (8-55); AST (SGOT) 21 U/L (5-34); Albumin 4.2 g/dL (3.5-5.0); Alkaline Phosphatase 54 U/L (40-110); Anion Gap 13 mmol/L (10-20); BUN (Urea Nitrogen) 11 mg/dL (7.0-18.7); Bilirubin, Total 0.4 mg/dL (0.2-1.2); Calc. Creatinine Clearance 0 mL/min (70-130); Calcium 9.1 mg/dL (7.8-10.44); Carbon Dioxide 25 mmol/L (22-29); Chloride 103 mmol/L (98-107); Estimated GFR 94; Globulin 2.9 g/dL (2.4-3.5); Glucose 96 mg/dL (70-105); Protein, Total 7.1 g/dL (6.0-8.3); Sodium 137 mmol/L (136-145)
[2022-12-08 00:23] LABS: Band 11 % (5-11); CellaVision Operator ID LAB.CLH1; Elliptocytes SLIGHT = 2-5 cells HPF (0-1); Eosinophils 1 % (0-10); Lymphocytes 21 % (21-51); Macrocytosis SLIGHT = 6-15 cells HPF (0-5); Monocytes 6 % (0-10); Neutrophil 61 % (42-75); Platelet Adequacy Comment Platelets Normal; Total Cell Count 101
[2022-12-08] MEDS ORDERED: Morphine 4 MG/ML VIAL ONE (00:42)
== END 2022-12-08 00:56 | disposition home or self-care (01) ==
LOC: ERS 20:43
DX: R07.9 Chest pain, unspecified (principal); I50.9 Heart failure, unspecified
CPT/HCPCS: 71045; 80053; 83690; 84484; 85025; 93005; 96372; 96374; 96376; J1650; J2270; Q0169

== ENCOUNTER 2023-01-07 16:09 | Emergency (ER) | payer MEDICAID ==
[2023-01-07] MEDS ORDERED: methylPREDNISolone Sod Succ/PF 125 MG/2 ML VIAL ONE (17:56)
[2023-01-07] MEDS ORDERED: Famotidine/PF 20 mg/2ml Vial ONE (17:56)
[2023-01-07] MEDS ORDERED: diphenhydrAMINE 50 MG/ML VIAL ONE (17:56)
[2023-01-07 18:34] LABS: #Basophils 0.2 thou/uL (0.0-0.2); #Eosinphils 0.7 thou/uL (0.0-0.7); #Monocytes 1.4 thou/uL (0.11-0.59); #Neutrophils 7.7 thou/uL (1.40-6.50); %Basophils 1.3 % (0.0-1.0); %Eosinophils 5.3 % (0.0-10.0); %Lymphocytes 25.4 % (21.0-51.0); %Monocytes 10.7 % (0.0-10.0); Hemoglobin 13.2 g/dL (12.0-16.0); Mean Corpuscular HGB CONC 32.2 g/dL (32.0-36.0); Mean Corpuscular Hemoglobin 25.4 pg (27.0-31.0); Mean Platelet Volume 10.3 fL (7.4-10.4); Platelet Count 324 10x3/uL (130-400); RBC Distribution Width 14.6 % (11.5-14.5); Red Blood Cell (RBC) Count 5.19 mill/uL (4.20-5.40); White Blood Cell (WBC) Count 13.5 10x3/uL (4.8-10.8)
[2023-01-07 18:57] LABS: ALT (SGPT) 32 U/L (8-55); AST (SGOT) 40 U/L (5-34); Albumin 3.9 g/dL (3.5-5.0); Alkaline Phosphatase 58 U/L (40-110); Anion Gap 16 mmol/L (10-20); BUN (Urea Nitrogen) 9 mg/dL (7.0-18.7); Bilirubin, Total 0.3 mg/dL (0.2-1.2); Calc. Creatinine Clearance 0 mL/min (70-130); Calcium 9.3 mg/dL (7.8-10.44); Carbon Dioxide 21 mmol/L (22-29); Chloride 105 mmol/L (98-107); Estimated GFR 98; Globulin 3.7 g/dL (2.4-3.5); Glucose 92 mg/dL (70-105); Lipase 37 U/L (8-78); Magnesium 1.9 mg/dL (1.6-2.6); Potassium 4.5 mmol/L (3.5-5.1); Protein, Total 7.6 g/dL (6.0-8.3); Sodium 137 mmol/L (136-145)
[2023-01-07 19:00] LABS: Troponin I Less than 0.010 ng/mL (< 0.028)
[2023-01-07] MEDS ORDERED: Morphine 4 MG/ML VIAL ONE (20:39)
[2023-01-07] MEDS ORDERED: Ondansetron PF 4 MG/2 ML Vial ONE (20:39)
== END 2023-01-07 20:59 | disposition home or self-care (01) ==
LOC: ERS 16:09
DX: R07.2 Precordial pain (principal); R11.0 Nausea; I11.0 Hypertensive heart disease with heart failure; I50.9 Heart failure, unspecified; I25.2 Old myocardial infarction; Z79.899 Other long term (current) drug therapy; Z79.82 Long term (current) use of aspirin
CPT/HCPCS: 71045; 71275; 80053; 83690; 83735; 84484; 85025; 93005; 96374; 96375; J1200; J2270; J2405; J2930; Q9967; S0028

== ENCOUNTER 2023-01-16 19:19 | Emergency (ER) | payer MEDICAID ==
[2023-01-16] MEDS ORDERED: Morphine 2 MG/ML VIAL ONE (21:16)
[2023-01-16 21:24] LABS: #Basophils 0.1 thou/uL (0.0-0.2); #Eosinphils 0.4 thou/uL (0.0-0.7); #Monocytes 0.9 thou/uL (0.11-0.59); #Neutrophils 7.5 thou/uL (1.40-6.50); %Basophils 1.1 % (0.0-1.0); %Eosinophils 3.6 % (0.0-10.0); %Lymphocytes 21.3 % (21.0-51.0); %Monocytes 7.6 % (0.0-10.0); Hematocrit 40.6 % (36.0-47.0); Hemoglobin 12.9 g/dL (12.0-16.0); Mean Corpuscular HGB CONC 31.8 g/dL (32.0-36.0); Mean Corpuscular Hemoglobin 25.4 pg (27.0-31.0); Mean Corpuscular Volume 79.9 fl (78.0-98.0); Mean Platelet Volume 9.4 fL (7.4-10.4); Platelet Count 393 10x3/uL (130-400); RBC Distribution Width 14.9 % (11.5-14.5); Red Blood Cell (RBC) Count 5.08 mill/uL (4.20-5.40); White Blood Cell (WBC) Count 11.4 10x3/uL (4.8-10.8)
[2023-01-16] MEDS ORDERED: Ipratropium/Albuterol 3 ML NEB ONE (22:10)
[2023-01-16 22:11] LABS: BHCG - Serum Negative (NEGATIVE); Pregs Control Background? CLEAR/WHITE (CLR/WHITE); Pregs Control Bar Appear? YES (CONTROL BAR)
[2023-01-16 22:50] LABS: ALT (SGPT) 29 U/L (8-55); AST (SGOT) 34 U/L (5-34); Alkaline Phosphatase 64 U/L (40-110); Anion Gap 19 mmol/L (10-20); BUN (Urea Nitrogen) 8 mg/dL (7.0-18.7); Bilirubin, Total 0.2 mg/dL (0.2-1.2); Calc. Creatinine Clearance 0 mL/min (70-130); Calcium 9.5 mg/dL (7.8-10.44); Carbon Dioxide 17 mmol/L (22-29); Chloride 105 mmol/L (98-107); Estimated GFR 95; Globulin 3.5 g/dL (2.4-3.5); Glucose 115 mg/dL (70-105); Potassium 4.2 mmol/L (3.5-5.1); Protein, Total 7.5 g/dL (6.0-8.3); Sodium 137 mmol/L (136-145)
[2023-01-16] MEDS ORDERED: guaiFENesin 200 MG TAB PO SCH (23:00)
[2023-01-17 00:33] LABS: Troponin I Less than 0.010 ng/mL (< 0.028)
== END 2023-01-16 23:25 | disposition home or self-care (01) ==
LOC: ERS 19:19
DX: J06.9 Acute upper respiratory infection, unspecified (principal); J20.9 Acute bronchitis, unspecified; I50.9 Heart failure, unspecified; Z86.711 Personal history of pulmonary embolism; Z86.718 Personal history of other venous thrombosis and embolism
CPT/HCPCS: 71045; 80053; 84484; 84703; 85025; 85379; 93005; 96374; J2272; J7620

== ENCOUNTER 2023-02-10 13:23 | Emergency (ER) | payer MEDICAID ==
[2023-02-10 14:26] LABS: Hematocrit 43.3 % (36.0-47.0); Hemoglobin 13.4 g/dL (12.0-16.0); Mean Corpuscular HGB CONC 30.9 g/dL (32.0-36.0); Mean Corpuscular Hemoglobin 25.2 pg (27.0-31.0); Mean Corpuscular Volume 81.4 fl (78.0-98.0); Mean Platelet Volume 9.8 fL (7.4-10.4); Platelet Count 398 10x3/uL (130-400); RBC Distribution Width 15.5 % (11.5-14.5); Red Blood Cell (RBC) Count 5.32 mill/uL (4.20-5.40); White Blood Cell (WBC) Count 13.8 10x3/uL (4.8-10.8)
[2023-02-10 14:29] LABS: Delete Auto Diff?? YES; Manual Diff?? YES
[2023-02-10 14:49] LABS: Band 1 % (5-11); Eosinophils 2 % (0-10); Lymphocytes 27 % (21-51); Monocytes 10 % (0-10); Neutrophil 50 % (42-75); Reactive Lymphocytes 7 % (0-10)
[2023-02-10 14:50] LABS: Hypochromia SLIGHT = 6-15 cells (100X) (0-5/hpf); Platelet Adequacy Comment Platelets Normal; Polychromasia SLIGHT = 2-3 cells (100X) (0-2/hpf)
[2023-02-10 15:01] LABS: ALT (SGPT) 29 U/L (8-55); AST (SGOT) 26 U/L (5-34); Albumin 3.9 g/dL (3.5-5.0); Alkaline Phosphatase 64 U/L (40-110); Anion Gap 16 mmol/L (10-20); BUN (Urea Nitrogen) 10 mg/dL (7.0-18.7); Bilirubin, Total 0.3 mg/dL (0.2-1.2); Calc. Creatinine Clearance 0 mL/min (70-130); Calcium 9.2 mg/dL (7.8-10.44); Carbon Dioxide 18 mmol/L (22-29); Chloride 107 mmol/L (98-107); Estimated GFR 100; Globulin 3.8 g/dL (2.4-3.5); Glucose 102 mg/dL (70-105); Lipase 23 U/L (8-78); Potassium 3.8 mmol/L (3.5-5.1); Protein, Total 7.7 g/dL (6.0-8.3); Sodium 137 mmol/L (136-145)
[2023-02-10] MEDS ORDERED: Simethicone Chewable 80 MG TAB PO SCH (15:30)
[2023-02-10 15:33] LABS: Bacteria/HPF None Seen HPF (None Seen); Bilirubin Negative (Negative); Blood, Urine Negative (Negative); CAUTI Indications for Culture Pelvic or flank pain; Clarity Clear (Clear); Glucose, Urine (Dipstick) Normal (Negative); Ketone, Urine Negative (Negative); Leukocyte 250 Leu/uL (Negative); Nitrite Negative (Negative); Protein, Urine (Dipstick) 30 mg/dL (Neg-Trace); RBC/HPF 0-3 HPF (0-3); Specific Gravity, Urine 1.031 (1.002-1.036); Urobilinogen Normal mg/dL (Less than 2); pH, Urine 5.5 (5.0-9.0)
[2023-02-10 15:35] LABS: Pregnancy Test - Urine (BHCG) Negative (Negative); Pregu Control Background? CLEAR/WHITE (CLR/WHITE); Pregu Control Bar Appear? YES (CONTROL BAR); Specific Gravity 1.031 (1.002-1.036); Urine Culture Reflex Yes Yes
[2023-02-10] MEDS ORDERED: Mag-Al 1200 mg/1200 mg/30 ML UDCUP ONE (15:35)
== END 2023-02-10 14:57 | disposition home or self-care (01) ==
LOC: ERS 13:23
DX: R10.13 Epigastric pain (principal); I25.2 Old myocardial infarction; Z79.82 Long term (current) use of aspirin
CPT/HCPCS: 36415; 80053; 81001; 81025; 83690; 85025; 87086; 93005

== ENCOUNTER 2023-04-03 21:37 | Emergency (ER) | payer MEDICAID ==
[2023-04-03] MEDS ORDERED: Lidocaine 2% Viscous 10 mL, Alum & Magn 30 mL SSW SCH (22:45)
== END 2023-04-04 00:04 | disposition home or self-care (01) ==
LOC: ERS 21:37
DX: R13.10 Dysphagia, unspecified (principal)
CPT/HCPCS: 99283

== ENCOUNTER 2023-04-14 19:44 | Emergency (ER) | payer MEDICAID, SELFPAY ==
[2023-04-15] MEDS ORDERED: Enoxaparin 40 MG (0.4 mL) SYRINGE ONE (00:30)
[2023-04-15] MEDS ORDERED: Enoxaparin 100 MG (1 mL) SYRINGE ONE (00:30)
[2023-04-15] MEDS ORDERED: Promethazine 25 MG TAB ONE (00:30)
[2023-04-15] MEDS ORDERED: Acetaminophen 325 MG TAB ONE (00:30)
[2023-04-15 01:01] LABS: Hematocrit 41.6 % (36.0-47.0); Hemoglobin 13.3 g/dL (12.0-16.0); Manual Diff?? YES; Mean Corpuscular Hemoglobin 25.7 pg (27.0-31.0); Mean Corpuscular Volume 80.5 fl (78.0-98.0); Mean Platelet Volume 9.6 fL (7.4-10.4); Platelet Count 503 10x3/uL (130-400); RBC Distribution Width 15.5 % (11.5-14.5); Red Blood Cell (RBC) Count 5.17 mill/uL (4.20-5.40); White Blood Cell (WBC) Count 19.3 10x3/uL (4.8-10.8)
[2023-04-15 01:02] LABS: Delete Auto Diff?? YES
[2023-04-15 01:23] LABS: Anisocytosis SLIGHT = 6-15 cells HPF (0-5); Band 3 % (5-11); CellaVision Operator ID LAB.CLH1; Eosinophils 3 % (0-10); Hypochromia SLIGHT = 6-15 cells HPF (0-5); Lymphocytes 29 % (21-51); Metamyelocyte 1 % (0-0); Monocytes 5 % (0-10); Neutrophil 59 % (42-75); Platelet Adequacy Comment Platelets Increased; Target Cells SLIGHT = 2-5 cells HPF (0-1); Total Cell Count 101
[2023-04-15 01:32] LABS: Troponin I Less than 0.010 ng/mL (< 0.028)
[2023-04-15 01:33] LABS: ALT (SGPT) 23 U/L (8-55); AST (SGOT) 19 U/L (5-34); Albumin 4.6 g/dL (3.5-5.0); Alkaline Phosphatase 59 U/L (40-110); Anion Gap 14 mmol/L (10-20); BUN (Urea Nitrogen) 19 mg/dL (7.0-18.7); Bilirubin, Total 0.3 mg/dL (0.2-1.2); Calc. Creatinine Clearance 0 mL/min (70-130); Calcium 9.7 mg/dL (7.8-10.44); Carbon Dioxide 23 mmol/L (22-29); Chloride 104 mmol/L (98-107); Estimated GFR 68; Globulin 3.4 g/dL (2.4-3.5); Glucose 99 mg/dL (70-105); Potassium 4.2 mmol/L (3.5-5.1); Sodium 137 mmol/L (136-145)
== END 2023-04-15 02:06 | disposition home or self-care (01) ==
LOC: ERS 19:44
DX: R07.9 Chest pain, unspecified (principal); R11.0 Nausea; I50.9 Heart failure, unspecified; Z86.718 Personal history of other venous thrombosis and embolism; Z86.711 Personal history of pulmonary embolism; Z79.01 Long term (current) use of anticoagulants
CPT/HCPCS: 36415; 71045; 80053; 84484; 85025; 93005; 96372; J1650; Q0169

== ENCOUNTER 2023-05-02 21:47 | Emergency (ER) | payer MEDICAID ==
[2023-05-02 22:53] LABS: Bacteria/HPF None Seen HPF (None Seen); Bilirubin Negative (Negative); Blood, Urine Negative (Negative); CAUTI Indications for Culture Pelvic or flank pain; Clarity Clear (Clear); Glucose, Urine (Dipstick) Greater than 1000 mg/dL (Negative); Ketone, Urine Negative (Negative); Leukocyte 75 Leu/uL (Negative); Nitrite Negative (Negative); Protein, Urine (Dipstick) Negative (Neg-Trace); RBC/HPF 0-3 HPF (0-3); Specific Gravity, Urine 1.016 (1.002-1.036); Squamous Epithelial 0-3 HPF (0-3); Urobilinogen Normal mg/dL (Less than 2); pH, Urine 7.5 (5.0-9.0)
[2023-05-02 22:55] LABS: Urine Culture Reflex No No
[2023-05-02] MEDS ORDERED: Ondansetron PF 4 MG/2 ML Vial ONE (23:23)
[2023-05-02] MEDS ORDERED: Acetaminophen 500 MG TAB ONE (23:23)
[2023-05-02 23:47] LABS: BHCG - Serum Negative (NEGATIVE); Pregs Control Background? CLEAR/WHITE (CLR/WHITE); Pregs Control Bar Appear? YES (CONTROL BAR)
[2023-05-03] LABS: ALT (SGPT) 23 U/L (8-55); AST (SGOT) 17 U/L (5-34); Albumin 4.5 g/dL (3.5-5.0); Alkaline Phosphatase 64 U/L (40-110); Anion Gap 13 mmol/L (10-20); BUN (Urea Nitrogen) 14 mg/dL (7.0-18.7); Bilirubin, Total 0.2 mg/dL (0.2-1.2); Calc. Creatinine Clearance 0 mL/min (70-130); Calcium 9.9 mg/dL (7.8-10.44); Carbon Dioxide 24 mmol/L (22-29); Chloride 103 mmol/L (98-107); Estimated GFR 72; Globulin 3.5 g/dL (2.4-3.5); Glucose 106 mg/dL (70-105); Lipase 12 U/L (8-78); Potassium 4.5 mmol/L (3.5-5.1); Sodium 135 mmol/L (136-145)
[2023-05-03 00:01] LABS: #Basophils 0.1 thou/uL (0.0-0.2); #Eosinphils 1.7 thou/uL (0.0-0.7); #Monocytes 1.1 thou/uL (0.11-0.59); #Neutrophils 7.7 thou/uL (1.40-6.50); %Basophils 0.9 % (0.0-1.0); %Eosinophils 12.4 % (0.0-10.0); %Lymphocytes 22.6 % (21.0-51.0); %Neutrophils 55.7 % (42.0-75.0); Hematocrit 41.5 % (36.0-47.0); Hemoglobin 13.1 g/dL (12.0-16.0); Mean Corpuscular HGB CONC 31.6 g/dL (32.0-36.0); Mean Corpuscular Hemoglobin 25.8 pg (27.0-31.0); Mean Corpuscular Volume 81.7 fl (78.0-98.0); Mean Platelet Volume 9.5 fL (7.4-10.4); Platelet Count 513 10x3/uL (130-400); RBC Distribution Width 16.1 % (11.5-14.5); Red Blood Cell (RBC) Count 5.08 mill/uL (4.20-5.40); White Blood Cell (WBC) Count 13.8 10x3/uL (4.8-10.8)
[2023-05-03] MEDS ORDERED: fentaNYL 50 mcg/mL 1 mL Vial ONE ×2 (00:22→01:52)
== END 2023-05-03 02:15 | disposition home or self-care (01) ==
LOC: ERS 21:47
DX: R10.9 Unspecified abdominal pain (principal); I50.9 Heart failure, unspecified; I25.2 Old myocardial infarction; M32.10 Systemic lupus erythematosus, organ or system involvement unspecified; Z79.82 Long term (current) use of aspirin; Z79.899 Other long term (current) drug therapy
CPT/HCPCS: 74176; 80053; 81001; 83605; 83690; 83735; 84703; 85025; 96374; 96375; 96376; J2405; J3010

== ENCOUNTER 2023-06-18 13:56 | Emergency (ER) | payer BC, MEDICAID | END 2023-06-18 22:06 | disposition home or self-care (01) | LOC: ERS 13:56 | DX: R10.9 Unspecified abdominal pain (principal); E86.0 Dehydration; R11.2 Nausea with vomiting, unspecified; I50.9 Heart failure, unspecified; Z79.82 Long term (current) use of aspirin | CPT/HCPCS: 36415; 74176; 80053; 81001; 81025; 83605; 83690; 85025; 87086; 96374; 96375; 96376; J2405; J3010 ==

== ENCOUNTER 2023-07-17 10:41 | Emergency (ER) | payer MEDICAID ==
[2023-07-17] MEDS ORDERED: Morphine 4 MG/ML VIAL ONE (11:47)
[2023-07-17] MEDS ORDERED: Ondansetron ODT 4 MG TAB ONE (11:48)
[2023-07-17 12:07] LABS: #Basophils 0.11 10x3/uL (0.0-0.2); %Lymphocytes 28.5 % (21.0-51.0); %Monocytes 8.9 % (0.0-10.0); %Neutrophils 52.3 % (42.0-75.0); Hematocrit 37.6 % (36.0-47.0); Mean Corpuscular HGB CONC 31.9 g/dL (32.0-36.0); Mean Corpuscular Hemoglobin 25.9 pg (27.0-31.0); Mean Corpuscular Volume 81.2 fL (78.0-98.0); Mean Platelet Volume 9.9 fL (7.4-10.4); Platelet Count 431 10x3/uL (130-400); RBC Distribution Width 14.5 % (11.5-14.5); Red Blood Cell (RBC) Count 4.63 mill/uL (4.20-5.40)
[2023-07-17 12:17] LABS: BHCG - Serum Negative (NEGATIVE); Pregs Control Background? CLEAR/WHITE (CLR/WHITE); Pregs Control Bar Appear? YES (CONTROL BAR)
[2023-07-17 12:24] LABS: ALT (SGPT) 16 U/L (8-55); AST (SGOT) 19 U/L (5-34); Albumin 3.5 g/dL (3.5-5.0); Alkaline Phosphatase 57 U/L (40-110); Anion Gap 13 mmol/L (10-20); BUN (Urea Nitrogen) 12 mg/dL (7.0-18.7); Bilirubin, Total 0.3 mg/dL (0.2-1.2); Calc. Creatinine Clearance 0 mL/min (70-130); Calcium 9.4 mg/dL (7.8-10.44); Carbon Dioxide 21 mmol/L (22-29); Chloride 108 mmol/L (98-107); Estimated GFR 100; Globulin 3.1 g/dL (2.4-3.5); Glucose 90 mg/dL (70-105); Potassium 4.1 mmol/L (3.5-5.1); Protein, Total 6.6 g/dL (6.0-8.3); Sodium 138 mmol/L (136-145)
[2023-07-17 12:27] LABS: Troponin I Less than 0.010 ng/mL (< 0.028)
[2023-07-17] MEDS ORDERED: Enoxaparin 30 MG (0.3 mL) SYRINGE ONE (13:17)
[2023-07-17] MEDS ORDERED: Enoxaparin 100 MG (1 mL) SYRINGE ONE (13:17)
== END 2023-07-17 13:46 | disposition home or self-care (01) ==
LOC: ERS 10:41
DX: R07.89 Other chest pain (principal); I50.9 Heart failure, unspecified; I25.2 Old myocardial infarction; Z86.711 Personal history of pulmonary embolism; Z86.718 Personal history of other venous thrombosis and embolism; Z79.82 Long term (current) use of aspirin; Z79.899 Other long term (current) drug therapy
CPT/HCPCS: 36416; 71045; 80053; 83880; 84484; 84703; 85025; 93005; 96372; J1650; J2270; Q0162

== ENCOUNTER 2023-07-26 23:53 | Emergency (ER) | payer MEDICAID, OTHER ==
[2023-07-27 00:53] LABS: BHCG - Serum Negative (NEGATIVE); Pregs Control Background? CLEAR/WHITE (CLR/WHITE); Pregs Control Bar Appear? YES (CONTROL BAR)
[2023-07-27 01:01] LABS: ALT (SGPT) 20 U/L (8-55); AST (SGOT) 21 U/L (5-34); Albumin 4.2 g/dL (3.5-5.0); Alkaline Phosphatase 77 U/L (40-110); Anion Gap 15 mmol/L (10-20); BUN (Urea Nitrogen) 20 mg/dL (7.0-18.7); Bilirubin, Total 0.4 mg/dL (0.2-1.2); Calc. Creatinine Clearance 0 mL/min (70-130); Calcium 10.3 mg/dL (7.8-10.44); Carbon Dioxide 24 mmol/L (22-29); Chloride 105 mmol/L (98-107); Estimated GFR 60; Glucose 101 mg/dL (70-105); Potassium 3.9 mmol/L (3.5-5.1); Protein, Total 8.2 g/dL (6.0-8.3); Sodium 140 mmol/L (136-145)
[2023-07-27 01:06] LABS: Troponin I 0.011 ng/mL (< 0.028)
[2023-07-27 01:13] LABS: Hematocrit 42.3 % (36.0-47.0); Hemoglobin 13.5 g/dL (12.0-16.0); Mean Corpuscular HGB CONC 31.9 g/dL (32.0-36.0); Mean Corpuscular Hemoglobin 25.3 pg (27.0-31.0); Mean Corpuscular Volume 79.4 fL (78.0-98.0); Mean Platelet Volume 9.9 fL (7.4-10.4); Platelet Count 481 10x3/uL (130-400); RBC Distribution Width 14.5 % (11.5-14.5); Red Blood Cell (RBC) Count 5.33 mill/uL (4.20-5.40)
[2023-07-27] MEDS ORDERED: Morphine 4 MG/ML VIAL ONE (01:29)
[2023-07-27] MEDS ORDERED: Promethazine 25 MG TAB ONE (01:29)
[2023-07-27] MEDS ORDERED: Morphine 10 MG/ML VIAL ONE (01:31)
[2023-07-27 02:38] LABS: Anisocytosis SLIGHT = 6-15 cells (100X) (0-5/hpf); Band 2 % (5-11); Eosinophils 5 % (0-10); Lymphocytes 22 % (21-51); Monocytes 5 % (0-10); Neutrophil 64 % (42-75); Plasma Cells 0 % (0-0); Platelet Adequacy Comment Appears Adequate; Total Cell Count 100
== END 2023-07-27 02:22 | disposition home or self-care (01) ==
LOC: ERS 23:53
DX: R07.9 Chest pain, unspecified (principal); I25.2 Old myocardial infarction
CPT/HCPCS: 36415; 71045; 80053; 84484; 84703; 85025; 93005; 96372; J2270; Q0169

== ENCOUNTER 2023-08-13 21:36 | Emergency (ER) | payer MEDICAID ==
[2023-08-13 22:47] LABS: #Basophils 0.16 10x3/uL (0.0-0.2); %Basophils 1.2 % (0.0-1.0); %Eosinophils 7.3 % (0.0-10.0); %Lymphocytes 30.5 % (21.0-51.0); %Monocytes 7.7 % (0.0-10.0); Hematocrit 40.8 % (36.0-47.0); Hemoglobin 12.7 g/dL (12.0-16.0); Mean Corpuscular HGB CONC 31.1 g/dL (32.0-36.0); Mean Corpuscular Hemoglobin 26.3 pg (27.0-31.0); Mean Corpuscular Volume 84.5 fL (78.0-98.0); Mean Platelet Volume 9.9 fL (7.4-10.4); Platelet Count 360 10x3/uL (130-400); RBC Distribution Width 14.5 % (11.5-14.5); Red Blood Cell (RBC) Count 4.83 mill/uL (4.20-5.40)
[2023-08-13 23:10] LABS: BHCG - Serum Negative (NEGATIVE); Pregs Control Background? CLEAR/WHITE (CLR/WHITE); Pregs Control Bar Appear? YES (CONTROL BAR)
[2023-08-13 23:43] LABS: ALT (SGPT) 24 U/L (8-55); AST (SGOT) 25 U/L (5-34); Albumin 3.6 g/dL (3.5-5.0); Alkaline Phosphatase 63 U/L (40-110); Anion Gap 18 mmol/L (10-20); BUN (Urea Nitrogen) 11 mg/dL (7.0-18.7); Bilirubin, Total 0.3 mg/dL (0.2-1.2); Calc. Creatinine Clearance 0 mL/min (70-130); Calcium 9.6 mg/dL (7.8-10.44); Carbon Dioxide 15 mmol/L (22-29); Chloride 108 mmol/L (98-107); Estimated GFR 93; Globulin 3.8 g/dL (2.4-3.5); Glucose 88 mg/dL (70-105); Protein, Total 7.4 g/dL (6.0-8.3); Sodium 137 mmol/L (136-145)
[2023-08-13] MEDS ORDERED: Morphine 4 MG/ML VIAL ONE (23:44)
[2023-08-13] MEDS ORDERED: diphenhydrAMINE 50 MG/ML VIAL ONE (23:44)
[2023-08-13] MEDS ORDERED: Famotidine/PF 20 mg/2ml Vial ONE (23:45)
[2023-08-13] MEDS ORDERED: Ondansetron PF 4 MG/2 ML Vial ONE (23:45)
[2023-08-13] MEDS ORDERED: methylPREDNISolone Sod Succ 40 MG VIAL ONE (23:45)
[2023-08-14 00:38] LABS: Troponin I Less than 0.010 ng/mL (< 0.028)
[2023-08-14 01:31] LABS: Prothrombin Time 13.3 sec (12.0-14.7)
[2023-08-14 01:32] LABS: PTT 40.3 sec (22.9-36.1)
[2023-08-14 01:54] LABS: Bacteria/HPF None Seen HPF (None Seen); Bilirubin Negative (Negative); Blood, Urine Negative (Negative); CAUTI Indications for Culture Pelvic or flank pain; Calcium Oxalate Crystals 3+ HPF (None Seen); Clarity Clear (Clear); Glucose, Urine (Dipstick) Normal (Negative); Ketone, Urine Negative (Negative); Leukocyte 75 Leu/uL (Negative); Nitrite Negative (Negative); Protein, Urine (Dipstick) 10 mg/dL (Neg-Trace); Specific Gravity, Urine 1.033 (1.002-1.036); Squamous Epithelial 0-3 HPF (0-3); Urobilinogen Normal mg/dL (Less than 2); pH, Urine 5.5 (5.0-9.0)
[2023-08-14 01:55] LABS: Urine Culture Reflex No No
[2023-08-14] MEDS ORDERED: HYDROcodone/Acetaminophen 5/325 mg Tablet ONE (02:54)
[2023-08-14] MEDS ORDERED: Morphine 4 MG/ML VIAL ONE (04:29)
[2023-08-14] MEDS ORDERED: Iopamidol-370 76% 500 ML MDV (1 ML CHARGE) ONE (12:28)
== END 2023-08-14 04:45 | disposition home or self-care (01) ==
LOC: ERS 21:36
DX: J18.9 Pneumonia, unspecified organism (principal); M54.50 Low back pain, unspecified; N83.201 Unspecified ovarian cyst, right side; F41.8 Other specified anxiety disorders; G43.909 Migraine, unspecified, not intractable, without status migrainosus; I82.409 Acute embolism and thrombosis of unspecified deep veins of unspecified lower extremity; M32.9 Systemic lupus erythematosus, unspecified; D68.61 Antiphospholipid syndrome; I50.9 Heart failure, unspecified; I25.2 Old myocardial infarction; Z55.6 Problems related to health literacy
CPT/HCPCS: 36415; 71275; 74177; 80053; 81001; 83690; 83880; 84484; 84703; 85025; 85610; 85730; 93005; 96374; 96375; 96376; J1200; J2270; J2405; J2920; Q9967; S0028

== ENCOUNTER 2023-08-21 03:22 | Inpatient (IN) | payer MEDICAID ==
[2023-08-21 08:32] LABS: Hematocrit 39.4 % (36.0-47.0); Hemoglobin 12.4 g/dL (12.0-16.0); Mean Corpuscular HGB CONC 31.5 g/dL (32.0-36.0); Mean Corpuscular Hemoglobin 25.1 pg (27.0-31.0); Mean Corpuscular Volume 79.6 fL (78.0-98.0); Mean Platelet Volume 9.8 fL (7.4-10.4); Platelet Count 499 10x3/uL (130-400); RBC Distribution Width 14.6 % (11.5-14.5); Red Blood Cell (RBC) Count 4.95 mill/uL (4.20-5.40)
[2023-08-21 08:32] LABS: Influenza A by NAA Not Detected (NotDetected); Influenza B by NAA Not Detected (NotDetected); SARS-CoV-2 NAA Rapid Test Not Detected (NotDetected)
[2023-08-21 08:43] LABS: BHCG - Serum Negative (NEGATIVE); Pregs Control Background? CLEAR/WHITE (CLR/WHITE); Pregs Control Bar Appear? YES (CONTROL BAR)
[2023-08-21 08:44] LABS: PTT 41.1 sec (22.9-36.1)
[2023-08-21 08:46] LABS: D-Dimer Test Less than 0.27 mcg/mL (0.27-0.43)
[2023-08-21 08:52] LABS: ALT (SGPT) 17 U/L (8-55); AST (SGOT) 15 U/L (5-34); Albumin 3.7 g/dL (3.5-5.0); Alkaline Phosphatase 60 U/L (40-110); Anion Gap 15 mmol/L (10-20); BUN (Urea Nitrogen) 11 mg/dL (7.0-18.7); Bilirubin, Total 0.3 mg/dL (0.2-1.2); Calc. Creatinine Clearance 0 mL/min (70-130); Calcium 9.4 mg/dL (7.8-10.44); Carbon Dioxide 19 mmol/L (22-29); Chloride 106 mmol/L (98-107); Estimated GFR 98; Globulin 3.6 g/dL (2.4-3.5); Glucose 96 mg/dL (70-105); Magnesium 1.8 mg/dL (1.6-2.6); Protein, Total 7.3 g/dL (6.0-8.3); Sodium 136 mmol/L (136-145)
[2023-08-21 08:54] LABS: Band 5 % (5-11); Burr Cells MODERATE= 6-15 cells HPF (0-1); Eosinophils 4 % (0-10); Lymphocytes 20 % (21-51); Monocytes 2 % (0-10); Neutrophil 68 % (42-75); Platelet Adequacy Comment Platelets Increased; Polychromasia SLIGHT = 2-3 cells HPF (0-2); Vacuoles SLIGHT
[2023-08-21 08:55] LABS: Troponin I Less than 0.010 ng/mL (< 0.028)
[2023-08-21] MEDS ORDERED: cefTRIAXone (ROCEPHIN) 2 GM VIAL ONE (09:16)
[2023-08-21] MEDS ORDERED: Azithromycin 500 MG VIAL ONE (09:16)
[2023-08-21] MEDS ORDERED: Famotidine/PF 20 mg/2ml Vial ONE (09:17)
[2023-08-21] MEDS ORDERED: Sodium Chloride 0.9% 250 ML 250 ML ONE (09:17)
[2023-08-21] MEDS ORDERED: Acetaminophen 500 MG TAB ONE (09:18)
[2023-08-21] MEDS ORDERED: Ondansetron PF 4 MG/2 ML Vial IVP PRN (09:40)
[2023-08-21] MEDS ORDERED: Acetaminophen 650 MG Suppository PR PRN (09:40)
[2023-08-21] MEDS ORDERED: Acetaminophen 325 MG TAB PO PRN (09:40)
[2023-08-21] MEDS ORDERED: ACETAMINOPHEN PO PRN (09:43)
[2023-08-21] MEDS ORDERED: OXYCODONE HCL PO PRN (09:43)
[2023-08-21] MEDS ORDERED: Albuterol 200 PUFF (6.7GM INHALER) INH PRN (09:43)
[2023-08-21] MEDS ORDERED: Bumetanide 1 MG TAB PO SCH (09:45)
[2023-08-21 10:16] LABS: Complement-C3 146 mg/dL (83-193); Complement-C4 19 mg/dL (15-57)
[2023-08-21 11:12] VITALS: BMI 56.7
[2023-08-21 12:03] LABS: Legionella Urinary Ag Negative (Negative); Strep pneumo Urine Ag NEGATIVE (NEGATIVE)
[2023-08-21] MEDS: Morphine 4 MG/ML VIAL SLOW IVP PRN (12:40)
[2023-08-21] MEDS: diphenhydrAMINE 50 MG/ML VIAL IVP SCH (12:42)
[2023-08-21] MEDS: Bumetanide 1 MG TAB PO SCH ×2 (12:45→12:48)
[2023-08-21] MEDS: Aspirin 81 mg Enteric Coated Tablet PO SCH (12:46)
[2023-08-21] MEDS: Empagliflozin 10 MG TAB PO SCH (12:46)
[2023-08-21] MEDS ORDERED: Gabapentin 300 MG CAP PO SCH (15:00)
[2023-08-21] MEDS: Carvedilol 25 MG TAB PO SCH (18:40)
[2023-08-21] MEDS: Gabapentin 400 MG CAP PO SCH (18:41)
[2023-08-21] MEDS: Baclofen 10 MG TAB PO SCH (18:45)
[2023-08-21] MEDS: oxyCODONE/Acetaminophen 5 mg/325 mg Tablet PO PRN (18:46)
[2023-08-21] MEDS ORDERED: Non-Formulary Item 1 EACH (Prazosin Hcl [Prazosin Hcl] 2 MG Capsule) PO SCH (21:00)
[2023-08-21] MEDS: Atorvastatin Calcium 40 MG TAB PO SCH (22:13)
[2023-08-21] MEDS: Prazosin HCl 1 MG CAP PO SCH (22:13)
[2023-08-21] MEDS: Sacubitril 49 MG/Valsartan 51 MG TABLET PO SCH (22:14)
[2023-08-21] MEDS: Enoxaparin 120 MG/0.8 ML SYRINGE SC SCH (22:14)
[2023-08-21] MEDS: Morphine 2 MG/ML VIAL SLOW IVP PRN (22:18)
[2023-08-22] MEDS: Ondansetron ODT 4 MG TAB PO PRN (01:42)
[2023-08-22 06:00] LABS: Hematocrit 37.8 % (36.0-47.0); Hemoglobin 11.9 g/dL (12.0-16.0); Mean Corpuscular HGB CONC 31.5 g/dL (32.0-36.0); Mean Corpuscular Hemoglobin 25.2 pg (27.0-31.0); Mean Corpuscular Volume 80.1 fL (78.0-98.0); Mean Platelet Volume 10.5 fL (7.4-10.4); Platelet Count 510 10x3/uL (130-400); Red Blood Cell (RBC) Count 4.72 mill/uL (4.20-5.40)
[2023-08-22 06:13] LABS: ALT (SGPT) 14 U/L (8-55); AST (SGOT) 13 U/L (5-34); Albumin 3.2 g/dL (3.5-5.0); Alkaline Phosphatase 53 U/L (40-110); Anion Gap 15 mmol/L (10-20); BUN (Urea Nitrogen) 16 mg/dL (7.0-18.7); Bilirubin, Total 0.4 mg/dL (0.2-1.2); Calc. Creatinine Clearance 131 mL/min (70-130); Calcium 8.7 mg/dL (7.8-10.44); Carbon Dioxide 22 mmol/L (22-29); Chloride 105 mmol/L (98-107); Estimated GFR 55; Globulin 2.9 g/dL (2.4-3.5); Glucose 107 mg/dL (70-105); Protein, Total 6.1 g/dL (6.0-8.3); Sodium 138 mmol/L (136-145)
[2023-08-22 06:30] LABS: Eosinophils 1 % (0-10); Lymphocytes 14 % (21-51); Monocytes 5 % (0-10); Neutrophil 80 % (42-75); Platelet Adequacy Comment Platelets Increased; Polychromasia SLIGHT = 2-3 cells HPF (0-2)
[2023-08-22] MEDS: Enoxaparin 120 MG/0.8 ML SYRINGE SC SCH (08:10)
[2023-08-22] MEDS ORDERED: FENOFIBRATE 200 MG PO SCH (09:00)
[2023-08-22] MEDS ORDERED: FENOFIBRATE MICRONIZED 200 MG PO SCH (09:00)
[2023-08-22] MEDS ORDERED: Non-Formulary Item 1 EACH (Fluoxetine Hcl [Fluoxetine Hcl] 40 MG Capsule) PO SCH (09:00)
[2023-08-22] MEDS: FLUoxetine HCl 20 MG CAP PO SCH (09:34)
[2023-08-22] MEDS: Spironolactone 25 MG TAB PO SCH (09:35)
[2023-08-22] MEDS: cefTRIAXone\\ROCEPHIN 2 GM in Sodium Chloride 0.9% 100 ML IVPB SCH (09:36)
[2023-08-22] MEDS: Azithromycin 500 MG in Sodium Chloride 0.9% 250 ML 250 ML IVPB SCH (09:38)
[2023-08-22] MEDS: diphenhydrAMINE 50 MG/ML VIAL IVP PRN (10:31)
[2023-08-22] MEDS: Promethazine HCl 25 MG in Sodium Chloride 0.9% 50 ML IVPB SCH (21:53)
[2023-08-23 09:49] LABS: %Basophils 0.7 % (0.0-1.0); %Eosinophils 5.6 % (0.0-10.0); %Neutrophils 61.2 % (42.0-75.0); Hemoglobin 12.3 g/dL (12.0-16.0); Mean Corpuscular HGB CONC 31.5 g/dL (32.0-36.0); Mean Corpuscular Hemoglobin 25.6 pg (27.0-31.0); Mean Corpuscular Volume 81.1 fL (78.0-98.0); Mean Platelet Volume 9.6 fL (7.4-10.4); Platelet Count 510 10x3/uL (130-400); RBC Distribution Width 14.6 % (11.5-14.5); Red Blood Cell (RBC) Count 4.81 mill/uL (4.20-5.40)
[2023-08-23 10:02] LABS: Anion Gap 14 mmol/L (10-20); BUN (Urea Nitrogen) 13 mg/dL (7.0-18.7); Calc. Creatinine Clearance 205 mL/min (70-130); Calcium 8.8 mg/dL (7.8-10.44); Carbon Dioxide 22 mmol/L (22-29); Chloride 103 mmol/L (98-107); Estimated GFR 94; Glucose 136 mg/dL (70-105); Potassium 3.5 mmol/L (3.5-5.1); Sodium 135 mmol/L (136-145)
[2023-08-24 05:38] LABS: Hematocrit 41.1 % (36.0-47.0); Hemoglobin 12.5 g/dL (12.0-16.0); Mean Corpuscular HGB CONC 30.4 g/dL (32.0-36.0); Mean Corpuscular Hemoglobin 25.5 pg (27.0-31.0); Mean Corpuscular Volume 83.7 fL (78.0-98.0); Mean Platelet Volume 9.7 fL (7.4-10.4); Platelet Count 473 10x3/uL (130-400); RBC Distribution Width 14.8 % (11.5-14.5); Red Blood Cell (RBC) Count 4.91 mill/uL (4.20-5.40)
[2023-08-24 05:42] LABS: Anion Gap 13 mmol/L (10-20); BUN (Urea Nitrogen) 15 mg/dL (7.0-18.7); Calc. Creatinine Clearance 175 mL/min (70-130); Calcium 9.1 mg/dL (7.8-10.44); Carbon Dioxide 19 mmol/L (22-29); Chloride 102 mmol/L (98-107); Estimated GFR 78; Glucose 98 mg/dL (70-105); Potassium 4.3 mmol/L (3.5-5.1); Sodium 130 mmol/L (136-145)
[2023-08-24 06:34] LABS: Burr Cells SLIGHT = 2-5 cells HPF (0-1); Eosinophils 3 % (0-10); Large Platelets 6.1 % (0-5); Lymphocytes 30 % (21-51); Macrocytosis SLIGHT = 6-15 cells HPF (0-5); Monocytes 2 % (0-10); Neutrophil 65 % (42-75); Platelet Adequacy Comment Platelets Normal
[2023-08-24 13:37] VITALS: BP 106/73; TEMP 98.4
== END 2023-08-24 14:50 | disposition home or self-care (01) | DRG 194 ==
LOC: SUATTDRO 03:22 → ERS 03:22 → SJJU 10:36
PROVIDERS: ADMIT Family Medicine; ATTEND Internal Medicine
DX: J18.9 Pneumonia, unspecified organism (principal); D68.61 Antiphospholipid syndrome; I50.22 Chronic systolic (congestive) heart failure; N17.9 Acute kidney failure, unspecified; N18.2 Chronic kidney disease, stage 2 (mild); L93.0 Discoid lupus erythematosus; M79.7 Fibromyalgia; J20.9 Acute bronchitis, unspecified; F41.8 Other specified anxiety disorders; Z90.49 Acquired absence of other specified parts of digestive tract; Z91.018 Allergy to other foods; Z88.0 Allergy status to penicillin; Z91.013 Allergy to seafood; Z88.5 Allergy status to narcotic agent; Z88.1 Allergy status to other antibiotic agents; Z88.8 Allergy status to other drugs, medicaments and biological substances; Z79.82 Long term (current) use of aspirin; Z79.899 Other long term (current) drug therapy
CPT/HCPCS: 36415; 71046; 80048; 80053; 83605; 83735; 83880; 84145; 84484; 84703; 85025; 85379; 85610; 85730; 86160; 87040; 87086; 87449; 87899; 93005; 96365; 96368; 96375; J0456; J0696; J1200; J1650; J2270; J2272; J3490; J7050; Q0162; S0028

== ENCOUNTER 2023-12-26 09:20 | Emergency (ER) | payer MEDICAID ==
[2023-12-26] MEDS ORDERED: Famotidine/PF 20 mg/2ml Vial ONE (10:23)
[2023-12-26] MEDS ORDERED: Aspirin Chewable 81 MG TAB ONE (10:23)
[2023-12-26] MEDS ORDERED: diphenhydrAMINE 50 MG/ML VIAL ONE (10:23)
[2023-12-26] MEDS ORDERED: methylPREDNISolone Sod Succ/PF 125 MG/2 ML VIAL ONE (10:23)
[2023-12-26 10:30] LABS: BHCG - Serum Negative (NEGATIVE); Pregs Control Background? CLEAR/WHITE (CLR/WHITE); Pregs Control Bar Appear? YES (CONTROL BAR)
[2023-12-26 10:32] LABS: Hematocrit 38.6 % (36.0-47.0); Hemoglobin 12.4 g/dL (12.0-16.0); Mean Corpuscular HGB CONC 32.1 g/dL (32.0-36.0); Mean Corpuscular Hemoglobin 25.1 pg (27.0-31.0); Mean Platelet Volume 9.9 fL (7.4-10.4); Platelet Count 463 10x3/uL (130-400); RBC Distribution Width 15.5 % (11.5-14.5); Red Blood Cell (RBC) Count 4.95 mill/uL (4.20-5.40)
[2023-12-26 10:40] LABS: ALT (SGPT) 23 U/L (8-55); AST (SGOT) 21 U/L (5-34); Albumin 3.7 g/dL (3.5-5.0); Alkaline Phosphatase 54 U/L (40-110); Anion Gap 13 mmol/L (10-20); BUN (Urea Nitrogen) 10 mg/dL (7.0-18.7); Bilirubin, Total 0.5 mg/dL (0.2-1.2); Calc. Creatinine Clearance 0 mL/min (70-130); Calcium 9.2 mg/dL (7.8-10.44); Carbon Dioxide 22 mmol/L (22-29); Chloride 107 mmol/L (98-107); Estimated GFR 104; Globulin 3.4 g/dL (2.4-3.5); Glucose 102 mg/dL (70-105); Lipase 29 U/L (8-78); Potassium 4.1 mmol/L (3.5-5.1); Protein, Total 7.1 g/dL (6.0-8.3); Sodium 138 mmol/L (136-145)
[2023-12-26 10:43] LABS: Troponin I Less than 0.010 ng/mL (< 0.028)
[2023-12-26] MEDS ORDERED: Ondansetron PF 4 MG/2 ML Vial ONE (11:05)
[2023-12-26] MEDS ORDERED: Morphine 4 MG/ML VIAL ONE ×2 (11:05→13:23)
[2023-12-26 11:07] LABS: Eosinophils 5 % (0-10); Lymphocytes 29 % (21-51); Monocytes 5 % (0-10); Neutrophil 61 % (42-75); Platelet Adequacy Comment Platelets Increased
[2023-12-26 11:14] LABS: Hypersegmented Neutrophil SLIGHT
[2023-12-26 11:19] LABS: PTT 37.4 sec (22.9-36.1)
[2023-12-26 14:23] LABS: Troponin I 0.011 ng/mL (< 0.028)
== END 2023-12-26 15:22 | disposition home or self-care (01) ==
LOC: ERS 09:20
DX: R07.89 Other chest pain (principal); I11.0 Hypertensive heart disease with heart failure; I50.9 Heart failure, unspecified; I25.10 Atherosclerotic heart disease of native coronary artery without angina pectoris
CPT/HCPCS: 36415; 71045; 71275; 80053; 83690; 83880; 84484; 84703; 85025; 85610; 85730; 93005; 96374; 96375; 96376; J1200; J2272; J2405; J2919; J3490

== ENCOUNTER 2024-02-18 22:21 | Emergency (ER) | payer MEDICAID ==
[2024-02-18 23:25] LABS: Bacteria/HPF None Seen HPF (None Seen); Bilirubin Negative (Negative); Blood, Urine Negative (Negative); CAUTI Indications for Culture Pelvic or flank pain; Clarity Clear (Clear); Glucose, Urine (Dipstick) Normal (Negative); Ketone, Urine Negative (Negative); Leukocyte 75 Leu/uL (Negative); Nitrite Negative (Negative); Protein, Urine (Dipstick) 10 mg/dL (Neg-Trace); RBC/HPF 0-3 HPF (0-3); Specific Gravity, Urine 1.025 (1.002-1.036); Squamous Epithelial 0-3 HPF (0-3); Urobilinogen Normal mg/dL (Less than 2); WBC/HPF 0-3 HPF (0-3)
[2024-02-18 23:31] LABS: Urine Culture Reflex No No
[2024-02-18 23:43] LABS: #Basophils 0.12 10x3/uL (0.0-0.2); %Eosinophils 3.3 % (0.0-10.0); %Lymphocytes 27.8 % (21.0-51.0); %Monocytes 5.6 % (0.0-10.0); %Neutrophils 62.1 % (42.0-75.0); Hemoglobin 14.2 g/dL (12.0-16.0); Mean Corpuscular HGB CONC 31.6 g/dL (32.0-36.0); Mean Corpuscular Hemoglobin 25.1 pg (27.0-31.0); Mean Corpuscular Volume 79.6 fL (78.0-98.0); Platelet Count 430 10x3/uL (130-400); RBC Distribution Width 15.9 % (11.5-14.5); Red Blood Cell (RBC) Count 5.65 mill/uL (4.20-5.40)
[2024-02-18 23:50] LABS: BHCG - Serum Negative (NEGATIVE); Pregs Control Background? CLEAR/WHITE (CLR/WHITE); Pregs Control Bar Appear? YES (CONTROL BAR)
[2024-02-19 00:01] LABS: ALT (SGPT) 30 U/L (8-55); AST (SGOT) 38 U/L (5-34); Albumin 4.4 g/dL (3.5-5.0); Alkaline Phosphatase 57 U/L (40-110); Anion Gap 17 mmol/L (10-20); BUN (Urea Nitrogen) 11 mg/dL (7.0-18.7); Bilirubin, Total 0.3 mg/dL (0.2-1.2); CK (CPK) 92 U/L (29-168); Calc. Creatinine Clearance 0 mL/min (70-130); Calcium 10.3 mg/dL (7.8-10.44); Carbon Dioxide 20 mmol/L (22-29); Chloride 106 mmol/L (98-107); Estimated GFR 96; Globulin 4.6 g/dL (2.4-3.5); Glucose 97 mg/dL (70-105); Lipase 25 U/L (8-78); Potassium 4.5 mmol/L (3.5-5.1); Sodium 138 mmol/L (136-145)
[2024-02-19 00:05] LABS: Troponin I Less than 0.010 ng/mL (< 0.028)
[2024-02-19] MEDS ORDERED: Acetaminophen 500 MG TAB ONE (00:09)
[2024-02-19] MEDS ORDERED: Prochlorperazine 10 MG/2 ML VIAL ONE (00:56)
[2024-02-19] MEDS ORDERED: diphenhydrAMINE 50 MG/ML VIAL ONE ×2 (00:56→01:06)
[2024-02-19] MEDS ORDERED: Morphine 4 MG/ML VIAL ONE (02:16)
== END 2024-02-19 03:32 | disposition home or self-care (01) ==
LOC: ERS 22:21
DX: R07.89 Other chest pain (principal); R51.9 Headache, unspecified; I25.2 Old myocardial infarction; M79.7 Fibromyalgia; I50.9 Heart failure, unspecified; M32.9 Systemic lupus erythematosus, unspecified; D64.9 Anemia, unspecified; Z79.82 Long term (current) use of aspirin; Z79.899 Other long term (current) drug therapy; Z79.51 Long term (current) use of inhaled steroids
CPT/HCPCS: 36415; 71045; 80053; 81001; 82550; 83690; 83735; 83880; 84443; 84484; 84703; 85025; 87428; 93005; 96374; 96375; J0780; J1200; J2272

== ENCOUNTER 2024-09-13 22:22 | Observation (INO) | payer MEDICAID, OTHER ==
[2024-09-13 23:31] LABS: Hematocrit 38.7 % (36.0-47.0); Hemoglobin 12.5 g/dL (12.0-16.0); Mean Corpuscular Hemoglobin 26.3 pg (27.0-31.0); Mean Corpuscular Volume 81.3 fL (78.0-98.0); Platelet Count 358 10x3/uL (130-400); Red Blood Cell (RBC) Count 4.76 mill/uL (4.20-5.40); White Blood Cell (WBC) Count 13.99 10x3/uL (4.8-10.8)
[2024-09-13 23:32] LABS: BHCG - Serum Negative (NEGATIVE); Pregs Control Background? CLEAR/WHITE (CLR/WHITE); Pregs Control Bar Appear? YES (CONTROL BAR)
[2024-09-13] MEDS ORDERED: Ondansetron PF 4 MG/2 ML Vial ONE (23:37)
[2024-09-13] MEDS ORDERED: diphenhydrAMINE 50 MG/ML VIAL ONE (23:37)
[2024-09-13] MEDS ORDERED: Famotidine/PF 20 mg/2ml Vial ONE (23:37)
[2024-09-13 23:38] LABS: ALT (SGPT) 40 U/L (Less than 34); AST (SGOT) 44 U/L (11-34); Albumin 3.8 g/dL (3.1-4.5); Alkaline Phosphatase 56 U/L (40-110); Anion Gap 15 mmol/L (10-20); BUN (Urea Nitrogen) 11 mg/dL (7.0-18.7); Bilirubin, Total 0.3 mg/dL (0.3-1.2); Calc. Creatinine Clearance 0 mL/min (70-130); Calcium 9.1 mg/dL (7.8-10.44); Carbon Dioxide 24 mmol/L (22-29); Chloride 105 mmol/L (98-107); Globulin 3.2 g/dL (2.4-3.5); Glucose 117 mg/dL (70-105); Lipase 133 U/L (8-78); Magnesium 1.6 mg/dL (1.6-2.6); Potassium 3.7 mmol/L (3.5-5.1); Sodium 140 mmol/L (136-145)
[2024-09-13 23:42] LABS: Troponin I Less than 0.010 ng/mL (< 0.028)
[2024-09-13 23:54] LABS: Platelet Adequacy Comment Platelets Normal; Polychromasia SLIGHT = 2-3 cells HPF (0-2)
[2024-09-14 03:42] LABS: Troponin I Less than 0.010 ng/mL (< 0.028)
[2024-09-14] MEDS ORDERED: Enoxaparin 100 MG (1 mL) SYRINGE ONE (03:55)
[2024-09-14] MEDS ORDERED: Albuterol 200 PUFF (6.7GM INHALER) INH PRN ×2 (04:55)
[2024-09-14] MEDS: oxyCODONE/Acetaminophen 5 mg/325 mg Tablet PO SCH ×2 (06:40→13:20)
[2024-09-14] MEDS: Ibuprofen 600 MG TAB PO SCH (06:41)
[2024-09-14] MEDS ORDERED: oxyCODONE/Acetaminophen 5 mg/325 mg Tablet PO SCH (06:58)
[2024-09-14 07:05] LABS: Troponin I Less than 0.010 ng/mL (< 0.028)
[2024-09-14 08:00] VITALS: BMI 57.1
[2024-09-14] MEDS ORDERED: Enoxaparin 100 MG (1 mL) SYRINGE SC SCH (09:00)
[2024-09-14] MEDS ORDERED: FENOFIBRATE MICRONIZED 200 MG PO SCH (09:00)
[2024-09-14] MEDS ORDERED: Enoxaparin 40 MG (0.4 mL) SYRINGE SC SCH (09:00)
[2024-09-14 09:58] LABS: Troponin I Less than 0.010 ng/mL (< 0.028)
[2024-09-14] MEDS: Enoxaparin 80 MG (0.8 mL) SYRINGE SC SCH ×2 (10:14→20:32)
[2024-09-14] MEDS: Enoxaparin 60 MG (0.6 mL) SYRINGE SC SCH ×2 (10:14→20:32)
[2024-09-14] MEDS: Aspirin 81 mg Enteric Coated Tablet PO SCH (10:26)
[2024-09-14] MEDS: Baclofen 10 MG TAB PO SCH (10:27)
[2024-09-14] MEDS: Gabapentin 400 MG CAP PO SCH (10:27)
[2024-09-14] MEDS: Pantoprazole 40 MG DR.TAB PO SCH (10:27)
[2024-09-14] MEDS: Sacubitril 49 MG/Valsartan 51 MG TABLET PO SCH (10:28)
[2024-09-14] MEDS: Enoxaparin 40 MG (0.4 mL) SYRINGE SC SCH (10:28)
[2024-09-14] MEDS: Spironolactone 25 MG TAB PO SCH (10:28)
[2024-09-14] MEDS ORDERED: Iopamidol-370 76% 500 ML MDV (1 ML CHARGE) ONE (11:46)
[2024-09-14] MEDS ORDERED: Enoxaparin 80 MG (0.8 mL) SYRINGE SC ONE (16:00)
[2024-09-14] MEDS: Acetaminophen 325 MG TAB PO PRN (20:33)
[2024-09-15 05:12] LABS: #Basophils Less than 0.03 10x3/uL (0.0-0.2); #Eosinophils Less than 0.03 10x3/uL (0.0-0.7); #Monocytes 0.77 10x3/uL (0.11-0.59); #Neutrophils 14.21 10x3/uL (1.40-6.50); %Basophils 0.1 % (0.0-1.0); %Eosinophils 0.0 % (0.0-10.0); %Lymphocytes 15.0 % (21.0-51.0); %Monocytes 4.3 % (0.0-10.0); %Neutrophils 80.1 % (42.0-75.0); Hematocrit 42.6 % (36.0-47.0); Hemoglobin 13.6 g/dL (12.0-16.0); Mean Corpuscular Hemoglobin 26.3 pg (27.0-31.0); Mean Corpuscular Volume 82.4 fL (78.0-98.0); Platelet Count 405 10x3/uL (130-400); Red Blood Cell (RBC) Count 5.17 mill/uL (4.20-5.40); White Blood Cell (WBC) Count 17.76 10x3/uL (4.8-10.8)
[2024-09-15 05:26] LABS: ALT (SGPT) 33 U/L (Less than 34); AST (SGOT) 23 U/L (11-34); Albumin 4.0 g/dL (3.1-4.5); Alkaline Phosphatase 53 U/L (40-110); Anion Gap 17 mmol/L (10-20); BUN (Urea Nitrogen) 20 mg/dL (7.0-18.7); Bilirubin, Total 0.2 mg/dL (0.3-1.2); Calc. Creatinine Clearance 131 mL/min (70-130); Calcium 8.8 mg/dL (7.8-10.44); Carbon Dioxide 22 mmol/L (22-29); Chloride 104 mmol/L (98-107); Globulin 3.6 g/dL (2.4-3.5); Glucose 148 mg/dL (70-105); Potassium 4.1 mmol/L (3.5-5.1); Sodium 139 mmol/L (136-145)
[2024-09-15] MEDS: diphenhydrAMINE 25 MG CAP PO SCH (10:18)
[2024-09-15] MEDS ORDERED: Iopamidol-370 76% 500 ML MDV (1 ML CHARGE) ONE (11:22)
[2024-09-15 12:22] VITALS: BP 102/68; TEMP 98.4
[2024-09-15 16:11] LABS: ANA Symphony (Qualitative) POSITIVE (Negative); ANA Symphony (Quantitative) 13.0 Ratio (< 0.7 Negative); CENP IgG Antibody Greater than 240.0 EliAU/mL (<7 Negative); Mitochondrial Ab 1.2 U/mL (<4 Negative); RNP70 IgG Antibody 1.0 EliAU/mL (<7 Negative); SSA/Ro IgG Antibody Less than 0.4 EliAU/mL (<7 Negative); SSB/La IgG Antibody Less than 0.4 EliAU/mL (<7 Negative); Scleroderma-70 IgG Antibody 0.7 EliAU/mL (<7 Negative); Thyroid Peroxidase IgG Ab Less than 4.0 IU/mL (<25 Normal); U1RNP IgG Antibody 1.3 EliAU/mL (<5 Negative); dsDNA IgG Antibody 3.2 IU/mL (<10 Negative)
[2024-09-15] MEDS ORDERED: Transdermal Patch Removal TOP SCH (21:00)
[2024-09-16 07:23] LABS: Smith D IgG Antibody Less than 0.7 EliAU/mL (<7 Negative)
[2024-09-18] MEDS ORDERED: Ergocalciferol 1.25 MG(50,000 UNITS) CAP PO SCH (09:00)
== END 2024-09-15 17:10 | disposition home or self-care (01) ==
LOC: ERS 22:22 → OBS 09-14 03:46
PROVIDERS: ADMIT Family Medicine; ATTEND Family Medicine
DX: I20.0 Unstable angina (principal); D68.61 Antiphospholipid syndrome; I50.30 Unspecified diastolic (congestive) heart failure; R74.8 Abnormal levels of other serum enzymes; D72.829 Elevated white blood cell count, unspecified; K76.0 Fatty (change of) liver, not elsewhere classified; Z79.82 Long term (current) use of aspirin; Z79.899 Other long term (current) drug therapy; Z91.018 Allergy to other foods; Z91.040 Latex allergy status; Z88.0 Allergy status to penicillin; Z91.013 Allergy to seafood; Z88.5 Allergy status to narcotic agent; Z91.041 Radiographic dye allergy status; Z88.1 Allergy status to other antibiotic agents; Z88.8 Allergy status to other drugs, medicaments and biological substances
CPT/HCPCS: 36415; 36416; 71045; 71275; 74170; 80053; 83516; 83690; 83735; 83880; 84484; 84703; 85025; 86038; 86141; 86160; 86225; 86235; 86376; 93005; 93970; 95819; 96372; 96374; 96375; 96376; G0378; J1200; J1308; J1650; J2270; J2405; J2550; J2919; J3010; J7512; Q0162; Q9967

== ENCOUNTER 2024-10-17 14:52 | Inpatient (IN) | payer MEDICAID ==
[2024-10-17] MEDS: cefTRIAXone\\ROCEPHIN 1 GM in Sodium Chloride 0.9% 100 ML IVPB SCH (21:45)
[2024-10-17] MEDS: Pantoprazole 40 MG VIAL IVP SCH (21:45)
[2024-10-17] MEDS ORDERED: Albuterol 200 PUFF INH INH PRN (22:49)
[2024-10-17] MEDS ORDERED: Albuterol 1.25 MG (3 mL) NEB NEB PRN (22:49)
[2024-10-17] MEDS: Naproxen 500 MG TAB PO SCH (23:33)
[2024-10-17] MEDS: Bumetanide 1 MG/4 ML VIAL IVP SCH (23:33)
[2024-10-18] MEDS: oxyCODONE/Acetaminophen 5 mg/325 mg Tablet PO SCH (00:17)
[2024-10-18 04:46] LABS: #Basophils 0.13 10x3/uL (0.0-0.2); #Eosinophils 0.21 10x3/uL (0.0-0.7); #Monocytes 1.29 10x3/uL (0.11-0.59); #Neutrophils 10.84 10x3/uL (1.40-6.50); %Basophils 0.8 % (0.0-1.0); %Eosinophils 1.3 % (0.0-10.0); %Lymphocytes 21.9 % (21.0-51.0); %Monocytes 8.1 % (0.0-10.0); %Neutrophils 67.7 % (42.0-75.0); Hematocrit 38.2 % (36.0-47.0); Hemoglobin 11.9 g/dL (12.0-16.0); Mean Corpuscular Hemoglobin 26.0 pg (27.0-31.0); Mean Corpuscular Volume 83.6 fL (78.0-98.0); Platelet Count 503 10x3/uL (130-400); Red Blood Cell (RBC) Count 4.57 mill/uL (4.20-5.40); White Blood Cell (WBC) Count 16.02 10x3/uL (4.8-10.8)
[2024-10-18 04:59] LABS: INR-International Normal Ratio 1.9; Prothrombin Time 21.9 sec (12.0-14.7)
[2024-10-18 05:08] LABS: ALT (SGPT) 27 U/L (Less than 34); AST (SGOT) 32 U/L (11-34); Albumin 3.7 g/dL (3.1-4.5); Alkaline Phosphatase 43 U/L (40-110); Anion Gap 15 mmol/L (10-20); BUN (Urea Nitrogen) 8 mg/dL (7.0-18.7); Bilirubin, Total 0.4 mg/dL (0.3-1.2); Calc. Creatinine Clearance 226 mL/min (70-130); Calcium 9.0 mg/dL (7.8-10.44); Carbon Dioxide 21 mmol/L (22-29); Cardiac Risk 5.8 (Less than 4.5); Chloride 104 mmol/L (98-107); Cholesterol 208 mg/dl (< 200 Desired); Globulin 3.3 g/dL (2.4-3.5); Glucose 107 mg/dL (70-105); HDL Cholesterol 36 mg/dL (>60 Neg Risk); LDL Cholesterol, Calculated 122 mg/dL; Potassium 3.7 mmol/L (3.5-5.1); Sodium 136 mmol/L (136-145); Triglycerides 252 mg/dL (Less than 150)
[2024-10-18] MEDS: Naproxen 500 MG TAB PO SCH (08:57)
[2024-10-18] MEDS: Baclofen 10 MG TAB PO SCH (08:58)
[2024-10-18] MEDS: Spironolactone 25 MG TAB PO SCH (08:58)
[2024-10-18] MEDS: Sacubitril 49 MG/Valsartan 51 MG TABLET PO SCH (08:58)
[2024-10-18] MEDS: Carvedilol 25 MG TAB PO SCH (08:58)
[2024-10-18] MEDS: Aspirin 81 mg Enteric Coated Tablet PO SCH (08:59)
[2024-10-18] MEDS: Gabapentin 400 MG CAP PO SCH (08:59)
[2024-10-18] MEDS: Pantoprazole 40 MG VIAL IVP SCH (09:00)
[2024-10-18] MEDS: Ondansetron PF 4 MG/2 ML Vial IVP PRN (17:01)
[2024-10-18] MEDS: Colchicine 0.6 MG TAB PO SCH (20:48)
[2024-10-19 05:56] LABS: INR-International Normal Ratio 1.9; Prothrombin Time 22.0 sec (12.0-14.7)
[2024-10-19 06:07] LABS: Hematocrit 45.6 % (36.0-47.0); Hemoglobin 13.7 g/dL (12.0-16.0); Mean Corpuscular Hemoglobin 25.7 pg (27.0-31.0); Mean Corpuscular Volume 85.4 fL (78.0-98.0); Platelet Count 408 10x3/uL (130-400); Red Blood Cell (RBC) Count 5.34 mill/uL (4.20-5.40); White Blood Cell (WBC) Count 13.02 10x3/uL (4.8-10.8)
[2024-10-19 06:13] LABS: Platelet Adequacy Comment Platelets Normal; Polychromasia SLIGHT = 2-3 cells HPF (0-2); Smudge Cells 16.0 %
[2024-10-19 06:16] LABS: ALT (SGPT) 26 U/L (Less than 34); AST (SGOT) 40 U/L (11-34); Albumin 3.9 g/dL (3.1-4.5); Alkaline Phosphatase 45 U/L (40-110); Anion Gap 17 mmol/L (10-20); BUN (Urea Nitrogen) 15 mg/dL (7.0-18.7); Bilirubin, Total 0.2 mg/dL (0.3-1.2); Calc. Creatinine Clearance 132 mL/min (70-130); Calcium 9.1 mg/dL (7.8-10.44); Carbon Dioxide 23 mmol/L (22-29); Chloride 100 mmol/L (98-107); Globulin 3.6 g/dL (2.4-3.5); Glucose 97 mg/dL (70-105); Potassium 3.8 mmol/L (3.5-5.1); Sodium 136 mmol/L (136-145)
[2024-10-19] MEDS: oxyCODONE/Acetaminophen 5 mg/325 mg Tablet PO SCH (09:48)
[2024-10-19 13:59] LABS: Cocaine Metabolite Screen Negative (Negative); THC/Cannabinoid Screen Negative (Negative); Tricyclic Screen Negative (Negative)
[2024-10-19] MEDS ORDERED: Donnatal Elixir 16.2 MG/5 ML UDCUP PO SCH (17:00)
[2024-10-19] MEDS: Lidocaine 2% Viscous Solution 20 ML, Aluminum & Magnesium Hydroxide 30 ML, Donnatal Eli... SSW SCH (17:32)
[2024-10-19] MEDS: Cyclobenzaprine 10 MG TAB PO SCH (18:54)
[2024-10-19] MEDS: Colchicine 0.3 MG TAB PO SCH (19:56)
[2024-10-20 01:20] LABS: Campy jejuni + coli by PCR Negative (Negative); STEC Shiga Toxin 1+2 Negative (Negative); Salmonella spp. by PCR Negative (Negative); Shigella spp + EIEC by PCR Negative (Negative)
[2024-10-20 04:32] LABS: #Basophils 0.13 10x3/uL (0.0-0.2); #Eosinophils 0.54 10x3/uL (0.0-0.7); #Monocytes 1.61 10x3/uL (0.11-0.59); #Neutrophils 6.81 10x3/uL (1.40-6.50); %Basophils 1.0 % (0.0-1.0); %Eosinophils 4.0 % (0.0-10.0); %Lymphocytes 32.4 % (21.0-51.0); %Monocytes 11.9 % (0.0-10.0); %Neutrophils 50.4 % (42.0-75.0); Hematocrit 42.6 % (36.0-47.0); Hemoglobin 13.1 g/dL (12.0-16.0); Mean Corpuscular Hemoglobin 26.0 pg (27.0-31.0); Mean Corpuscular Volume 84.7 fL (78.0-98.0); Platelet Count 577 10x3/uL (130-400); Red Blood Cell (RBC) Count 5.03 mill/uL (4.20-5.40); White Blood Cell (WBC) Count 13.50 10x3/uL (4.8-10.8)
[2024-10-20 04:52] LABS: INR-International Normal Ratio 2.6; Prothrombin Time 28.1 sec (12.0-14.7)
[2024-10-20 05:08] LABS: ALT (SGPT) 12 U/L (Less than 34); AST (SGOT) 40 U/L (11-34); Albumin 3.9 g/dL (3.1-4.5); Alkaline Phosphatase 47 U/L (40-110); Anion Gap 18 mmol/L (10-20); BUN (Urea Nitrogen) 27 mg/dL (7.0-18.7); Bilirubin, Total 0.2 mg/dL (0.3-1.2); Calc. Creatinine Clearance 67 mL/min (70-130); Calcium 9.0 mg/dL (7.8-10.44); Carbon Dioxide 21 mmol/L (22-29); Chloride 99 mmol/L (98-107); Globulin 3.7 g/dL (2.4-3.5); Glucose 104 mg/dL (70-105); Potassium 3.6 mmol/L (3.5-5.1); Sodium 134 mmol/L (136-145)
[2024-10-20] MEDS: diphenhydrAMINE 50 MG/ML VIAL IVP SCH (15:18)
[2024-10-20] MEDS: Sodium Ferric Gluconate 250 MG in Sodium Chloride 0.9% 250 ML 250 ML IVPB SCH (15:18)
[2024-10-20 18:17] LABS: ALT (SGPT) 22 U/L (Less than 34); AST (SGOT) 29 U/L (11-34); Albumin 3.7 g/dL (3.1-4.5); Alkaline Phosphatase 44 U/L (40-110); Anion Gap 16 mmol/L (10-20); BUN (Urea Nitrogen) 35 mg/dL (7.0-18.7); Bilirubin, Total 0.2 mg/dL (0.3-1.2); Calc. Creatinine Clearance 69 mL/min (70-130); Calcium 8.5 mg/dL (7.8-10.44); Carbon Dioxide 23 mmol/L (22-29); Chloride 99 mmol/L (98-107); Globulin 3.1 g/dL (2.4-3.5); Glucose 121 mg/dL (70-105); Potassium 3.5 mmol/L (3.5-5.1); Sodium 134 mmol/L (136-145)
[2024-10-20] MEDS: Cyclobenzaprine 10 MG TAB PO PRN (20:01)
[2024-10-21 04:42] LABS: Hematocrit 40.5 % (36.0-47.0); Hemoglobin 12.4 g/dL (12.0-16.0); Mean Corpuscular Hemoglobin 26.0 pg (27.0-31.0); Mean Corpuscular Volume 84.9 fL (78.0-98.0); Platelet Count 585 10x3/uL (130-400); Red Blood Cell (RBC) Count 4.77 mill/uL (4.20-5.40); White Blood Cell (WBC) Count 12.85 10x3/uL (4.8-10.8)
[2024-10-21 04:54] LABS: INR-International Normal Ratio 3.0; Prothrombin Time 31.0 sec (12.0-14.7)
[2024-10-21 05:01] LABS: ALT (SGPT) 22 U/L (Less than 34); AST (SGOT) 36 U/L (11-34); Albumin 3.8 g/dL (3.1-4.5); Alkaline Phosphatase 51 U/L (40-110); Anion Gap 15 mmol/L (10-20); BUN (Urea Nitrogen) 36 mg/dL (7.0-18.7); Bilirubin, Total 0.2 mg/dL (0.3-1.2); Calc. Creatinine Clearance 88 mL/min (70-130); Calcium 8.8 mg/dL (7.8-10.44); Carbon Dioxide 25 mmol/L (22-29); Chloride 101 mmol/L (98-107); Globulin 2.8 g/dL (2.4-3.5); Glucose 102 mg/dL (70-105); Potassium 3.4 mmol/L (3.5-5.1); Sodium 138 mmol/L (136-145)
[2024-10-21 05:12] LABS: Burr Cells SLIGHT = 2-5 cells HPF (0-1); Giant Platelets 1.0 % (0-5); Macrocytosis SLIGHT = 6-15 cells HPF (0-5); Platelet Adequacy Comment Platelets Increased; Polychromasia SLIGHT = 2-3 cells HPF (0-2); Smudge Cells 11.8 %
[2024-10-21 06:09] VITALS: BMI 56.3
[2024-10-21] MEDS: Potassium Bicarbonate/Cit Ac 20 MEQ TAB PO SCH (06:27)
[2024-10-21] MEDS: Sodium Ferric Gluconate 250 MG in Sodium Chloride 0.9% 250 ML 250 ML IVPB SCH (08:31)
[2024-10-21] MEDS: diphenhydrAMINE 50 MG/ML VIAL IVP SCH (08:31)
[2024-10-21 09:58] LABS: Hep A IgM AB NONREACTIVE (NonReactive); Hep A IgM S/CO 0.16 S/CO (0-0.79); Hep B Core IgM Index 0.09 S/CO (0-0.79); Hep B Surf Ag NONREACTIVE S/CO (NonReactive); Hep C IgG Ab NONREACTIVE S/CO (NonReactive); Hep C Index 0.15 S/CO (0-0.79)
[2024-10-21] MEDS ORDERED: Barium Sulfate 96% 176 GM BOT (xray ONLY) ONE (12:42)
[2024-10-21] MEDS ORDERED: E-Z-HD 98% W/W 340GM BOT (x-ray ONLY) ONE (12:42)
[2024-10-21] MEDS: Ondansetron PF 4 MG/2 ML Vial IVP SCH (14:48)
[2024-10-21] MEDS: Pantoprazole 40 MG VIAL IVP SCH (20:07)
[2024-10-22 05:55] LABS: #Basophils 0.12 10x3/uL (0.0-0.2); #Eosinophils 0.74 10x3/uL (0.0-0.7); #Monocytes 1.43 10x3/uL (0.11-0.59); #Neutrophils 5.11 10x3/uL (1.40-6.50); %Basophils 1.0 % (0.0-1.0); %Eosinophils 6.1 % (0.0-10.0); %Lymphocytes 39.1 % (21.0-51.0); %Monocytes 11.7 % (0.0-10.0); %Neutrophils 41.9 % (42.0-75.0); Hematocrit 39.0 % (36.0-47.0); Hemoglobin 12.0 g/dL (12.0-16.0); Mean Corpuscular Hemoglobin 26.4 pg (27.0-31.0); Mean Corpuscular Volume 85.7 fL (78.0-98.0); Platelet Count 531 10x3/uL (130-400); Red Blood Cell (RBC) Count 4.55 mill/uL (4.20-5.40); White Blood Cell (WBC) Count 12.19 10x3/uL (4.8-10.8)
[2024-10-22 06:07] LABS: INR-International Normal Ratio 3.1; Prothrombin Time 31.7 sec (12.0-14.7)
[2024-10-22 06:09] LABS: ALT (SGPT) 25 U/L (Less than 34); AST (SGOT) 42 U/L (11-34); Albumin 3.9 g/dL (3.1-4.5); Alkaline Phosphatase 60 U/L (40-110); Anion Gap 15 mmol/L (10-20); BUN (Urea Nitrogen) 21 mg/dL (7.0-18.7); Bilirubin, Total 0.2 mg/dL (0.3-1.2); Calc. Creatinine Clearance 159 mL/min (70-130); Calcium 9.1 mg/dL (7.8-10.44); Carbon Dioxide 25 mmol/L (22-29); Chloride 104 mmol/L (98-107); Globulin 2.8 g/dL (2.4-3.5); Glucose 93 mg/dL (70-105); Potassium 3.8 mmol/L (3.5-5.1); Sodium 140 mmol/L (136-145)
[2024-10-22] MEDS: Warfarin Sodium 3.75 MG HALF.TAB PO SCH (18:00)
[2024-10-22] MEDS ORDERED: Sacubitril 49 MG/Valsartan 51 MG TABLET PO SCH ×2 (21:00)
[2024-10-22] MEDS: Sacubitril 49 MG/Valsartan 51 MG TABLET PO SCH (21:05)
[2024-10-23 05:45] LABS: #Basophils 0.14 10x3/uL (0.0-0.2); #Eosinophils 1.02 10x3/uL (0.0-0.7); #Monocytes 1.33 10x3/uL (0.11-0.59); #Neutrophils 5.26 10x3/uL (1.40-6.50); %Basophils 1.1 % (0.0-1.0); %Eosinophils 8.3 % (0.0-10.0); %Lymphocytes 36.9 % (21.0-51.0); %Monocytes 10.8 % (0.0-10.0); %Neutrophils 42.7 % (42.0-75.0); Hematocrit 37.5 % (36.0-47.0); Hemoglobin 11.6 g/dL (12.0-16.0); Mean Corpuscular Hemoglobin 26.3 pg (27.0-31.0); Mean Corpuscular Volume 85.0 fL (78.0-98.0); Platelet Count 511 10x3/uL (130-400); Red Blood Cell (RBC) Count 4.41 mill/uL (4.20-5.40); White Blood Cell (WBC) Count 12.33 10x3/uL (4.8-10.8)
[2024-10-23 05:47] LABS: INR-International Normal Ratio 3.4; Prothrombin Time 34.5 sec (12.0-14.7)
[2024-10-23 05:56] LABS: ALT (SGPT) 22 U/L (Less than 34); AST (SGOT) 32 U/L (11-34); Albumin 3.5 g/dL (3.1-4.5); Alkaline Phosphatase 48 U/L (40-110); Anion Gap 13 mmol/L (10-20); BUN (Urea Nitrogen) 15 mg/dL (7.0-18.7); Bilirubin, Total 0.2 mg/dL (0.3-1.2); Calc. Creatinine Clearance 182 mL/min (70-130); Calcium 8.7 mg/dL (7.8-10.44); Carbon Dioxide 24 mmol/L (22-29); Chloride 107 mmol/L (98-107); Globulin 2.4 g/dL (2.4-3.5); Glucose 103 mg/dL (70-105); Potassium 3.9 mmol/L (3.5-5.1); Sodium 140 mmol/L (136-145)
[2024-10-23] MEDS: Ergocalciferol 1.25 MG(50,000 UNITS) CAP PO SCH (10:56)
[2024-10-23 12:24] VITALS: BP 115/83; TEMP 98.5
== END 2024-10-23 14:34 | disposition home or self-care (01) | DRG 314 ==
LOC: UNDOADMIN 18:34 → OBS 18:34
PROVIDERS: ADMIT Family Medicine; ATTEND Family Medicine
DX: I42.8 Other cardiomyopathies (principal); J18.9 Pneumonia, unspecified organism; D68.61 Antiphospholipid syndrome; I50.20 Unspecified systolic (congestive) heart failure; N17.9 Acute kidney failure, unspecified; R07.9 Chest pain, unspecified; K43.9 Ventral hernia without obstruction or gangrene; D75.839 Thrombocytosis, unspecified; M79.7 Fibromyalgia; F32.A Depression, unspecified; E87.6 Hypokalemia; D50.9 Iron deficiency anemia, unspecified; F41.9 Anxiety disorder, unspecified; Z88.1 Allergy status to other antibiotic agents; Z91.040 Latex allergy status; Z88.0 Allergy status to penicillin; Z88.8 Allergy status to other drugs, medicaments and biological substances; Z91.013 Allergy to seafood; Z91.018 Allergy to other foods; Z91.048 Other nonmedicinal substance allergy status; Z79.899 Other long term (current) drug therapy; Z98.890 Other specified postprocedural states; Z90.81 Acquired absence of spleen; Z95.810 Presence of automatic (implantable) cardiac defibrillator; I25.2 Old myocardial infarction; Z86.718 Personal history of other venous thrombosis and embolism; Z79.01 Long term (current) use of anticoagulants; Z86.711 Personal history of pulmonary embolism; K44.9 Diaphragmatic hernia without obstruction or gangrene; R13.19 Other dysphagia; R10.13 Epigastric pain; K31.84 Gastroparesis; R79.83 Abnormal findings of blood amino-acid level; K76.0 Fatty (change of) liver, not elsewhere classified; M62.08 Separation of muscle (nontraumatic), other site; I50.9 Heart failure, unspecified; I25.10 Atherosclerotic heart disease of native coronary artery without angina pectoris; Z79.82 Long term (current) use of aspirin; Z79.51 Long term (current) use of inhaled steroids; Z55.6 Problems related to health literacy
CPT/HCPCS: 36415; 71045; 74176; 74220; 80053; 80061; 80074; 80306; 82570; 83880; 84145; 84300; 84443; 84484; 85025; 85379; 85610; 85730; 87324; 87428; 87449; 87505; 87633; 93005; 94760; 96365; 96366; 96367; 96375; 96376; J0456; J0696; J1200; J1940; J2060; J2270; J2405; J2470; J2916; J3010; J3490; J7050; J7120; Q0162; Q0169

== ENCOUNTER 2024-11-19 11:59 | Emergency (ER) | payer MEDICAID ==
[2024-11-19 12:51] LABS: #Basophils 0.12 10x3/uL (0.0-0.2); #Eosinophils 0.25 10x3/uL (0.0-0.7); #Monocytes 1.01 10x3/uL (0.11-0.59); #Neutrophils 10.10 10x3/uL (1.40-6.50); %Basophils 0.8 % (0.0-1.0); %Eosinophils 1.6 % (0.0-10.0); %Lymphocytes 25.8 % (21.0-51.0); %Monocytes 6.5 % (0.0-10.0); %Neutrophils 65.0 % (42.0-75.0); Hematocrit 43.7 % (36.0-47.0); Hemoglobin 14.3 g/dL (12.0-16.0); Mean Corpuscular Hemoglobin 26.9 pg (27.0-31.0); Mean Corpuscular Volume 82.3 fL (78.0-98.0); Platelet Count 560 10x3/uL (130-400); Red Blood Cell (RBC) Count 5.31 mill/uL (4.20-5.40); White Blood Cell (WBC) Count 15.52 10x3/uL (4.8-10.8)
[2024-11-19 13:06] LABS: INR-International Normal Ratio 1.8; PTT 42.4 sec (22.9-36.1); Prothrombin Time 21.3 sec (12.0-14.7)
[2024-11-19 13:09] LABS: BHCG - Serum Negative (NEGATIVE); Pregs Control Background? CLEAR/WHITE (CLR/WHITE); Pregs Control Bar Appear? YES (CONTROL BAR)
[2024-11-19 13:10] LABS: ALT (SGPT) 34 U/L (Less than 34); AST (SGOT) 43 U/L (11-34); Albumin 4.6 g/dL (3.1-4.5); Alkaline Phosphatase 47 U/L (40-110); Anion Gap 14 mmol/L (10-20); BUN (Urea Nitrogen) 11 mg/dL (7.0-18.7); Bilirubin, Total 0.5 mg/dL (0.3-1.2); Calc. Creatinine Clearance 0 mL/min (70-130); Calcium 10.1 mg/dL (7.8-10.44); Carbon Dioxide 21 mmol/L (22-29); Chloride 108 mmol/L (98-107); Globulin 3.5 g/dL (2.4-3.5); Glucose 113 mg/dL (70-105); Potassium 3.5 mmol/L (3.5-5.1); Sodium 139 mmol/L (136-145)
== END 2024-11-19 16:15 | disposition home or self-care (01) ==
LOC: ERS 11:59
DX: R07.9 Chest pain, unspecified (principal); R78.9 Finding of unspecified substance, not normally found in blood; I50.9 Heart failure, unspecified; I25.2 Old myocardial infarction
CPT/HCPCS: 71045; 80053; 83880; 84484; 84703; 85025; 85610; 85730; 93005; 96374; 96375; 96376; J2270; J2550

== ENCOUNTER 2024-11-24 19:29 | Emergency (ER) | payer MEDICAID ==
[2024-11-24 20:52] LABS: Hematocrit 43.8 % (36.0-47.0); Hemoglobin 14.2 g/dL (12.0-16.0); Mean Corpuscular Hemoglobin 27.8 pg (27.0-31.0); Mean Corpuscular Volume 85.9 fL (78.0-98.0); Platelet Count 468 10x3/uL (130-400); Red Blood Cell (RBC) Count 5.10 mill/uL (4.20-5.40); White Blood Cell (WBC) Count 15.49 10x3/uL (4.8-10.8)
[2024-11-24 21:05] LABS: ALT (SGPT) 37 U/L (Less than 34); AST (SGOT) 31 U/L (11-34); Albumin 4.3 g/dL (3.1-4.5); Alkaline Phosphatase 53 U/L (40-110); Anion Gap 17 mmol/L (10-20); BUN (Urea Nitrogen) 12 mg/dL (7.0-18.7); Bilirubin, Total 0.4 mg/dL (0.3-1.2); Calc. Creatinine Clearance 0 mL/min (70-130); Calcium 9.5 mg/dL (7.8-10.44); Carbon Dioxide 19 mmol/L (22-29); Chloride 106 mmol/L (98-107); Globulin 3.3 g/dL (2.4-3.5); Glucose 95 mg/dL (70-105); Potassium 4.0 mmol/L (3.5-5.1); Sodium 138 mmol/L (136-145)
[2024-11-24 21:08] LABS: Platelet Adequacy Comment Platelets Increased; Polychromasia SLIGHT = 2-3 cells HPF (0-2)
[2024-11-24] MEDS ORDERED: Ondansetron PF 4 MG/2 ML Vial ONE ×2 (21:36→22:47)
[2024-11-24 21:50] LABS: BHCG - Serum Negative (NEGATIVE); Pregs Control Background? CLEAR/WHITE (CLR/WHITE); Pregs Control Bar Appear? YES (CONTROL BAR)
== END 2024-11-24 23:02 | disposition home or self-care (01) ==
LOC: ERS 19:29
DX: R07.89 Other chest pain (principal); I25.2 Old myocardial infarction; I50.9 Heart failure, unspecified; Z79.899 Other long term (current) drug therapy; Z79.82 Long term (current) use of aspirin
CPT/HCPCS: 36415; 71045; 80053; 83880; 84484; 84703; 85025; 85379; 93005; 96374; 96375; 96376; J2270

== ENCOUNTER 2024-12-09 15:25 | Emergency (ER) | payer MEDICAID ==
[2024-12-09] MEDS ORDERED: Ondansetron PF 4 MG/2 ML Vial ONE (20:38)
[2024-12-09 20:44] LABS: Hematocrit 41.3 % (36.0-47.0); Hemoglobin 13.5 g/dL (12.0-16.0); Mean Corpuscular Hemoglobin 27.8 pg (27.0-31.0); Mean Corpuscular Volume 85.2 fL (78.0-98.0); Platelet Count 389 10x3/uL (130-400); Red Blood Cell (RBC) Count 4.85 mill/uL (4.20-5.40); White Blood Cell (WBC) Count 9.75 10x3/uL (4.8-10.8)
[2024-12-09 20:53] LABS: BHCG - Serum Negative (NEGATIVE); Pregs Control Background? CLEAR/WHITE (CLR/WHITE); Pregs Control Bar Appear? YES (CONTROL BAR)
[2024-12-09 20:57] LABS: ALT (SGPT) 33 U/L (Less than 34); AST (SGOT) 33 U/L (11-34); Albumin 3.9 g/dL (3.1-4.5); Alkaline Phosphatase 49 U/L (40-110); Anion Gap 11 mmol/L (10-20); BUN (Urea Nitrogen) 13 mg/dL (7.0-18.7); Bilirubin, Total 0.4 mg/dL (0.3-1.2); Calc. Creatinine Clearance 0 mL/min (70-130); Calcium 9.3 mg/dL (7.8-10.44); Carbon Dioxide 26 mmol/L (22-29); Chloride 105 mmol/L (98-107); Globulin 3.2 g/dL (2.4-3.5); Glucose 87 mg/dL (70-105); Potassium 3.9 mmol/L (3.5-5.1); Sodium 138 mmol/L (136-145)
[2024-12-09 21:19] LABS: Anisocytosis SLIGHT = 6-15 cells HPF (0-5); Platelet Adequacy Comment Platelets Normal; Polychromasia SLIGHT = 2-3 cells HPF (0-2); Smudge Cells 17.1 %
== END 2024-12-09 22:19 | disposition home or self-care (01) ==
LOC: ERS 15:25
DX: R07.89 Other chest pain (principal); I50.23 Acute on chronic systolic (congestive) heart failure; I25.2 Old myocardial infarction; Z95.0 Presence of cardiac pacemaker
CPT/HCPCS: 71045; 80053; 83880; 84484; 84703; 85025; 93005; 96372; 96374; 96375; J2270; J2405; Q0162